=== PATIENT | male | born 1985 | race American Indian/Alaskan Native ===

== ENCOUNTER 2018-05-16 06:56 | Inpatient (IN) | payer OTHER ==
[2018-05-16] MEDS ORDERED: NACL 0.9% 1000 ML 1,000 ML IV ONE ×2 (07:32→07:59)
[2018-05-16] MEDS ORDERED: ATIVAN ONE ×2 (07:38→11:07)
[2018-05-16] MEDS ORDERED: GEODON IM ONE ×2 (07:39→07:52)
[2018-05-16] MEDS ORDERED: WATER FOR INJ (PF) ONE (07:39)
[2018-05-16] MEDS ORDERED: ATIVAN IM STA (07:52)
[2018-05-16 08:36] LABS: Hematocrit 46.2 % (35.5-45.6); Hemoglobin 15.2 gm/dl (11.8-15.2); Mean Corpuscular HGB Conc 33 % (32-34); Mean Corpuscular Hemoglobin 29 pg (28-32); Mean Corpuscular Volume 89 fl (84-94); Platelet Count 232 K/mm3 (140-440); Red Blood Count 5.22 M/mm3 (3.65-5.03); Red Cell Distribution Width 14.2 % (13.2-15.2)
[2018-05-16 08:47] LABS: INR 0.99 (0.87-1.13)
[2018-05-16 08:48] LABS: Partial Thromboplastin Time 23.2 Sec. (24.2-36.6)
[2018-05-16 08:57] LABS: Creatine Kinase MB 15.4 ng/mL (0.0-4.0)
[2018-05-16 08:59] LABS: Alanine Aminotransferase 22 units/L (7-56); Albumin 4.7 g/dL (3.9-5); BUN/Creatinine Ratio 13; Blood Urea Nitrogen 13 mg/dL (9-20); Calcium 9.4 mg/dL (8.4-10.2); Hemolysis Index 10
[2018-05-16] MEDS ORDERED: ROCEPHIN/NS 2 GM/100 ML 2 GM/100 ML BAG IV ONE (09:13)
[2018-05-16] MEDS ORDERED: KETAMINE HCL IV ONE (09:18)
[2018-05-16] MEDS ORDERED: KETALAR IV ONE (09:35)
--- NOTE | 2018-05-16 09:37 | Cat Scan Report ---
CRANIAL CT SCAN: Altered mental status. Serial contiguous axial images were obtained through the cranium. Intravenous contrast material was not administered. The ventricles are normal in size and appearance. There is no mass effect or midline shift. No areas of abnormally increased or decreased attenuation are seen. No mass lesion is seen. The mastoid air cells and visualized portions of the sinuses are normal. IMPRESSION: Cranial CT scan within normal limits.
[2018-05-16] MEDS ORDERED: NORMODYNE IV ONE ×2 (09:40)
[2018-05-16] MEDS ORDERED: VANCOMYCIN PHARMACY TO DOSE IV SCH (10:00)
[2018-05-16] MEDS ORDERED: VANCOMYCIN 2,000 MG in NACL 0.9% 500 ML 500 ML IV NR (10:00)
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
[2018-05-16 10:34] LABS: Appearance,CSF Clear; Glucose,CSF 77 mg/dL; Red Blood Cell,CSF 1 /mm3 (0-0); White Blood Cell,CSF 1 /mm3 (1-10)
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
[2018-05-16] MEDS ORDERED: SODIUM CHLORIDE FLUSH SYRINGE 10 ML IV PRN (10:37)
[2018-05-16] MEDS ORDERED: ZOFRAN IV PRN (10:37)
[2018-05-16] MEDS ORDERED: NACL 0.9% 1000 ML IV ONE (10:37)
[2018-05-16] MEDS ORDERED: TYLENOL PO PRN (10:37)
[2018-05-16 10:40] LABS: Bilirubin,Urine NEG (Negative); Blood,Urine MOD (Negative); Color,Urine Yellow (Yellow); Mucus,Urine FEW /HPF; Urobilinogen,Urine < 2.0 mg/dL (<2.0)
[2018-05-16 10:49] LABS: Basophils % (Manual) 0 % (0.0-1.8); Eosinophils % (Manual) 0 % (0.0-4.3); Platelet Estimate Consistent w Auto; RBC Morphology Normal; Total Cells Counted 100
[2018-05-16 10:51] LABS: Amphetamine Screen,Urine PRESUMPTIVE NEGATIVE; Cannabinoid Screen,Urine PRESUMPTIVE NEGATIVE; Cocaine Screen,Urine PRESUMPTIVE NEGATIVE; Methadone Screen,Urine PRESUMPTIVE NEGATIVE; Opiate Screen,Urine PRESUMPTIVE NEGATIVE
[2018-05-16 11:06] LABS: Benzodiazepines Screen,Urine PRESUMPTIVE POSITIVE
[2018-05-16 11:15] LABS: Total Cells Counted 100 /mm3
[2018-05-16] MEDS: ATIVAN IV PRN ×2 (11:15→22:00)
--- NOTE | 2018-05-16 12:05 | XRay Report ---
PORTABLE CHEST: Hypertension. An AP portable view of the chest demonstrates a normal cardiac contour considering the limits of this technique. The lungs are clear with no evidence of infiltrate, fluid or failure. IMPRESSION: Normal portable chest.
[2018-05-16 12:14] LABS: Alanine Aminotransferase 20 units/L (7-56); Albumin 4.1 g/dL (3.9-5); BUN/Creatinine Ratio 17; Blood Urea Nitrogen 12 mg/dL (9-20); Calcium 8.6 mg/dL (8.4-10.2); Hemolysis Index 8
[2018-05-16] MEDS: ZOSYN/NS 4.5GM/100ML 4.5 GM/100 ML VIAL IV SCH ×2 (13:59→22:18)
[2018-05-16] MEDS: CEPHULAC PO SCH ×2 (14:02→17:21)
[2018-05-16] MEDS: LOVENOX SUB-Q SCH (22:00)
[2018-05-16] MEDS: APRESOLINE IV PRN (22:00)
[2018-05-16] MEDS: SODIUM CHLORIDE FLUSH SYRINGE 10 ML IV SCH (22:01)
[2018-05-16] MEDS: VANCOMYCIN 1,500 MG in NACL 0.9% 500 ML 500 ML IV SCH (22:21)
[2018-05-17] MEDS: CEPHULAC PO SCH ×4 (00:31→18:45)
[2018-05-17] MEDS: ATIVAN IV PRN (03:04)
[2018-05-17 04:36] LABS: Hematocrit 44.4 % (35.5-45.6); Hemoglobin 14.7 gm/dl (11.8-15.2); Mean Corpuscular HGB Conc 33 % (32-34); Mean Corpuscular Hemoglobin 30 pg (28-32); Mean Corpuscular Volume 90 fl (84-94); Platelet Count 201 K/mm3 (140-440); Red Blood Count 4.96 M/mm3 (3.65-5.03); Red Cell Distribution Width 14.2 % (13.2-15.2)
[2018-05-17 04:54] LABS: BUN/Creatinine Ratio 13; Blood Urea Nitrogen 9 mg/dL (9-20); Calcium 8.7 mg/dL (8.4-10.2); Hemolysis Index 11
[2018-05-17] MEDS: ZOSYN/NS 4.5GM/100ML 4.5 GM/100 ML VIAL IV SCH (05:12)
[2018-05-17] MEDS: APRESOLINE IV PRN ×2 (05:18→21:15)
[2018-05-17] MEDS: VANCOMYCIN 1,500 MG in NACL 0.9% 500 ML 500 ML IV SCH (09:09)
[2018-05-17] MEDS: SODIUM CHLORIDE FLUSH SYRINGE 10 ML IV SCH (09:09)
--- NOTE | 2018-05-17 10:26 | Progress Note ---
Assessment and Plan Assessment and plan: Acute Metabolic Encephalopathy-Resolved Hypertensive urgency Meningitis Ruled out Acute Psychosis Morbid obesity Hx of Hazing years ago Hyperammonia SIRS Lactic Acidosis-Resolved Tobacco use disorder Plan Discussed with dental practitioner. Stop Abx, Start clonidin prn Atenolol for BP control Continue hydration Check CK Social Science Manager and Mental health consult Continue abx, IVF Follow cultures Restraints for safety NGT and start on Lactulose CT head reviewed and negative. Plan discussed with patients father at bedside and Social Science Manager. History Interval history: Patient more awake, improving symptoms. family at bedside. BP elevated. Hospitalist Physical - Constitutional Vitals: Temp Pulse Resp BP Pulse Ox 97.2 F L 111 H 34 H 149/89 100 05/17/18 09:00 05/17/18 10:00 05/17/18 10:00 05/17/18 10:00 05/17/18 08:00 General appearance: Present: no acute distress - EENT Eyes: Present: PERRL ENT: hearing intact, clear oral mucosa - Neck Neck: Present: supple, normal ROM - Respiratory Respiratory effort: normal Respiratory: bilateral: CTA - Cardiovascular Rhythm: regular Heart Sounds: Present: S1 & S2. Absent: systolic murmur, diastolic murmur - Extremities Extremities: no ischemia, pulses intact, pulses symmetrical, No edema, normal temperature, normal color, Full ROM Peripheral Pulses: within normal limits - Abdominal General gastrointestinal: soft, non-tender, non-distended, normal bowel sounds - Integumentary Integumentary: Present: clear, warm, dry - Psychiatric Psychiatric: appropriate mood/affect, memory intact - Neurologic Neurologic: CNII-XII intact Results - Labs CBC & Chem 7: 05/17/18 04:17 05/17/18 04:17 Labs: Laboratory Last Values WBC 12.0 K/mm3 (4.5-11.0) H 05/17/18 04:17 RBC 4.96 M/mm3 (3.65-5.03) 05/17/18 04:17 Hgb 14.7 gm/dl (11.8-15.2) 05/17/18 04:17 Hct 44.4 % (35.5-45.6) 05/17/18 04:17 MCV 90 fl (84-94) 05/17/18 04:17 MCH 30 pg (28-32) 05/17/18 04:17 MCHC 33 % (32-34) 05/17/18 04:17 RDW 14.2 % (13.2-15.2) 05/17/18 04:17 Plt Count 201 K/mm3 (140-440) 05/17/18 04:17 Add Manual Diff Complete 05/16/18 08:17 Total Counted 100 05/16/18 08:17 Seg Neuts % (Manual) 88.0 % (40.0-70.0) H 05/16/18 08:17 Band Neutrophils % 0 % 05/16/18 08:17 Lymphocytes % (Manual) 6.0 % (13.4-35.0) L 05/16/18 08:17 Reactive Lymphs % (Man) 0 % 05/16/18 08:17 Monocytes % (Manual) 6.0 % (0.0-7.3) 05/16/18 08:17 Eosinophils % (Manual) 0 % (0.0-4.3) 05/16/18 08:17 Basophils % (Manual) 0 % (0.0-1.8) 05/16/18 08:17 Metamyelocytes % 0 % 05/16/18 08:17 Myelocytes % 0 % 05/16/18 08:17 Promyelocytes % 0 % 05/16/18 08:17 Blast Cells % 0 % 05/16/18 08:17 Nucleated RBC % Not Reportable 05/16/18 08:17 Seg Neutrophils # Man 16.3 K/mm3 (1.8-7.7) H 05/16/18 08:17 Band Neutrophils # 0.0 K/mm3 05/16/18 08:17 Lymphocytes # (Manual) 1.1 K/mm3 (1.2-5.4) L 05/16/18 08:17 Abs React Lymphs (Man) 0.0 K/mm3 05/16/18 08:17 Monocytes # (Manual) 1.1 K/mm3 (0.0-0.8) H 05/16/18 08:17 Eosinophils # (Manual) 0.0 K/mm3 (0.0-0.4) 05/16/18 08:17 Basophils # (Manual) 0.0 K/mm3 (0.0-0.1) 05/16/18 08:17 Metamyelocytes # 0.0 K/mm3 05/16/18 08:17 Myelocytes # 0.0 K/mm3 05/16/18 08:17 Promyelocytes # 0.0 K/mm3 05/16/18 08:17 Blast Cells # 0.0 K/mm3 05/16/18 08:17 WBC Morphology Not Reportable 05/16/18 08:17 Hypersegmented Neuts Not Reportable 05/16/18 08:17 Hyposegmented Neuts Not Reportable 05/16/18 08:17 Hypogranular Neuts Not Reportable 05/16/18 08:17 Smudge Cells Not Reportable 05/16/18 08:17 Toxic Granulation Not Reportable 05/16/18 08:17 Toxic Vacuolation Not Reportable 05/16/18 08:17 Dohle Bodies Not Reportable 05/16/18 08:17 Pelger-Huet Anomaly Not Reportable 05/16/18 08:17 Celio Rods Not Reportable 05/16/18 08:17 Platelet Estimate Consistent w auto 05/16/18 08:17 Clumped Platelets Not Reportable 05/16/18 08:17 Plt Clumps, EDTA Not Reportable 05/16/18 08:17 Large Platelets Not Reportable 05/16/18 08:17 Giant Platelets Not Reportable 05/16/18 08:17 Platelet Satelliting Not Reportable 05/16/18 08:17 Plt Morphology Comment Not Reportable 05/16/18 08:17 RBC Morphology Normal 05/16/18 08:17 Dimorphic RBCs Not Reportable 05/16/18 08:17 Polychromasia Not Reportable 05/16/18 08:17 Hypochromasia Not Reportable 05/16/18 08:17 Poikilocytosis Not Reportable 05/16/18 08:17 Anisocytosis Not Reportable 05/16/18 08:17 Microcytosis Not Reportable 05/16/18 08:17 Macrocytosis Not Reportable 05/16/18 08:17 Spherocytes Not Reportable 05/16/18 08:17 Pappenheimer Bodies Not Reportable 05/16/18 08:17 Sickle Cells Not Reportable 05/16/18 08:17 Target Cells Not Reportable 05/16/18 08:17 Tear Drop Cells Not Reportable 05/16/18 08:17 Ovalocytes Not Reportable 05/16/18 08:17 Helmet Cells Not Reportable 05/16/18 08:17 [place] Bodies Not Reportable 05/16/18 08:17 Ferguson Rings Not Reportable 05/16/18 08:17 Eden Cells Not Reportable 05/16/18 08:17 Bite Cells Not Reportable 05/16/18 08:17 Crenated Cell Not Reportable 05/16/18 08:17 Elliptocytes Not Reportable 05/16/18 08:17 Acanthocytes (Spur) Not Reportable 05/16/18 08:17 Rouleaux Not Reportable 05/16/18 08:17 Hemoglobin C Crystals Not Reportable 05/16/18 08:17 Schistocytes Not Reportable 05/16/18 08:17 Malaria parasites Not Reportable 05/16/18 08:17 Rajat Bodies Not Reportable 05/16/18 08:17 Hem Pathologist Commnt No 05/16/18 08:17 PT 13.6 Sec. (12.2-14.9) 05/16/18 08:17 INR 0.99 (0.87-1.13) 05/16/18 08:17 APTT 23.2 Sec. (24.2-36.6) L 05/16/18 08:17 Sodium 141 mmol/L (137-145) 05/17/18 04:17 Potassium 3.7 mmol/L (3.6-5.0) 05/17/18 04:17 Chloride 102.0 mmol/L (98-107) 05/17/18 04:17 Carbon Dioxide 21 mmol/L (22-30) L 05/17/18 04:17 Anion Gap 22 mmol/L 05/17/18 04:17 BUN 9 mg/dL (9-20) 05/17/18 04:17 Creatinine 0.7 mg/dL (0.8-1.5) L 05/17/18 04:17 Estimated GFR > 60 ml/min 05/17/18 04:17 BUN/Creatinine Ratio 13 % 05/17/18 04:17 Glucose 62 mg/dL (75-100) L 05/17/18 04:17 POC Glucose 90 (70-105) 05/16/18 07:37 Lactic Acid 0.60 mmol/L (0.7-2.0) L 05/16/18 23:00 Calcium 8.7 mg/dL (8.4-10.2) 05/17/18 04:17 Magnesium 2.20 mg/dL (1.7-2.3) 05/16/18 08:17 Total Bilirubin 0.60 mg/dL (0.1-1.2) 05/16/18 11:19 AST 50 units/L (5-40) H 05/16/18 11:19 ALT 20 units/L (7-56) 05/16/18 11:19 Alkaline Phosphatase 69 units/L (35-129) 05/16/18 11:19 Ammonia 96.0 umol/L (25-60) H 05/16/18 08:17 Total Creatine Kinase 3668 units/L (55-170) H 05/17/18 04:17 CK-MB (CK-2) 15.4 ng/mL (0.0-4.0) H 05/16/18 08:17 CK-MB (CK-2) Rel Index 0.9 (0-4) 05/16/18 08:17 Troponin T < 0.010 ng/mL (0.00-0.029) 05/16/18 08:17 NT-Pro-B Natriuret Pep 237.7 pg/mL (0-450) 05/16/18 08:17 Total Protein 6.9 g/dL (6.3-8.2) 05/16/18 11:19 Albumin 4.1 g/dL (3.9-5) 05/16/18 11:19 Albumin/Globulin Ratio 1.5 % 05/16/18 11:19 TSH 2.690 mlU/mL (0.270-4.200) 05/16/18 08:17 Urine Color Yellow (Yellow) 05/16/18 10:21 Urine Turbidity Clear (Clear) 05/16/18 10:21 Urine pH 5.0 (5.0-7.0) 05/16/18 10:21 Ur Specific [place] 1.018 (1.003-1.030) 05/16/18 10:21 Urine Protein 100 mg/dl mg/dL (Negative) 05/16/18 10:21 Urine Glucose (UA) Neg mg/dL (Negative) 05/16/18 10:21 Urine Ketones 20 mg/dL (Negative) 05/16/18 10:21 Urine Blood Mod (Negative) 05/16/18 10:21 Urine Nitrite Neg (Negative) 05/16/18 10:21 Urine Bilirubin Neg (Negative) 05/16/18 10:21 Urine Urobilinogen < 2.0 mg/dL (<2.0) 05/16/18 10:21 Ur Leukocyte Esterase Neg (Negative) 05/16/18 10:21 Urine WBC (Auto) 1.0 /HPF (0.0-6.0) 05/16/18 10:21 Urine RBC (Auto) 2.0 /HPF (0.0-6.0) 05/16/18 10:21 U Epithel Cells (Auto) < 1.0 /HPF (0-13.0) 05/16/18 10:21 Urine Mucus Few /HPF 05/16/18 10:21 CSF Appearance Clear 05/16/18 Unknown CSF Color Colorless 05/16/18 Unknown CSF WBC 1 /mm3 (1-10) 05/16/18 Unknown CSF RBC 1 /mm3 (0-0) 05/16/18 Unknown CSF Seg Neutrophils 3.0 % (0-6) 05/16/18 Unknown CSF Lymphocytes % 18.0 % (40-80) 05/16/18 Unknown CSF Reactive Lymphs Not Reportable 05/16/18 Unknown CSF Monocytes % 79.0 % (15-45) 05/16/18 Unknown CSF Eosinophils % Not Reportable 05/16/18 Unknown CSF Basophils Not Reportable 05/16/18 Unknown CSF Pathologist Review C 05/16/18 Unknown CSF Glucose 77 mg/dL 05/16/18 Unknown CSF Total Protein 34 mg/dL 05/16/18 Unknown Salicylates < 0.3 mg/dL (2.8-20.0) L 05/16/18 08:17 Urine Opiates Screen Presumptive negative 05/16/18 10:21 Urine Methadone Screen Presumptive negative 05/16/18 10:21 Acetaminophen < 5.0 ug/mL (10.0-30.0) L 05/16/18 08:17 Ur Barbiturates Screen Presumptive negative 05/16/18 10:21 Ur Phencyclidine Scrn Presumptive negative 05/16/18 10:21 Ur Amphetamines Screen Presumptive negative 05/16/18 10:21 U Benzodiazepines Scrn Presumptive positive 05/16/18 10:21 Urine Cocaine Screen Presumptive negative 05/16/18 10:21 U Marijuana (THC) Screen Presumptive negative 05/16/18 10:21 Drugs of Abuse Note Disclamer 05/16/18 10:21 Plasma/Serum Alcohol < 0.01 % (0-0.07) 05/16/18 08:17 Blood Type B POSITIVE 05/16/18 11:19 Antibody Screen Negative 05/16/18 11:19
--- NOTE | 2018-05-17 10:56 | Consultation ---
History of Present Illness Consult date: 05/17/18 Requesting physician: WAQAS GARRIDO Reason for consult: other (Hypertensive urgency, acute psychosis, acute encephalopathy) History of present illness: History per ED documentation This is a 32 year old male with a history of a previous sick delirium. 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 Parents report that patient was hospitalized at that time. They are vague as to what the exact cause of the event was. The patient is listed as having a history of a bipolar disorder. However, parents report and no medication has been prescribed for the ensuing 10 years. patient has been able to work. mother states there may have been some odd behavior last night. however father states the patient was able to go to work at [employer] today. he apparently wandered off early in a shift and was found by police. The father was looking for him at that time he presented with him to the emergency department. patient arrived after being administered haldol and versed and benadryl by paramedics. In the emergency department, he was still quite delirious and required Geodon and Ativan. He was not providing any historical information. He would not cooperate with staff. The required physical restraints by security cards. The process was explained to the father who expressed understanding. He had a spinal tap done in the ER, CSF results are not consistent with meningitis. Patient had been started on empiric antibiotics for possible meningitis Patient was admitted into the ICU. Patient was seen and examined this morning. Vitals, labs, medications, chart reviewed. Family was at the bedside. He states that he was fine, but under a lot of pressure to make significant life style changes. He had been smoking and drinking, isolated from people. He spends a lot of time watching TV with late nights after work. He said he does not know what happened but he began to feel closed in, started walking around and became very combative because he felt he was going to suffer punitive measures including incarceration if he let the authorities get to him. 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 He also does state that he has been told he has high blood pressure, but has not been on any medications for it. He had been on medications 10 years ago, but he said the medications gave him terrible night hutson, so he stopped them. He used to drink and smoke. Past History Past Medical History: hypertension, other (bipolar disorder, 10 years ago) Past Surgical History: No surgical history Social history: single, Lives alone, smoking, alcohol abuse, full code Family history: no significant family history Medications and Allergies Allergies Allergy/AdvReac Type Severity Reaction Status Date / Time No Known Allergies Allergy Unverified 05/16/18 07:11 Active Meds: Active Medications Acetaminophen (Tylenol) 650 mg PO Q4H PRN PRN Reason: Pain MILD(1-3)/Fever >100.5/EARL Enoxaparin Sodium (Lovenox) 40 mg SUB-Q QDAY@2200 REPLACED BY [facility] Last Admin: 05/16/18 22:00 Dose: 40 mg Hydralazine HCl (Apresoline) 10 mg IV Q6HR PRN PRN Reason: Hypertension Last Admin: 05/17/18 05:18 Dose: 10 mg Sodium Chloride (Nacl 0.9% 1000 Ml) 1,000 mls @ 250 mls/hr IV DIRECT SHAHRAM Lactulose (Cephulac) 20 gm PO Q6HR SHAHRAM Stop: 05/17/18 23:59 Last Admin: 05/17/18 05:07 Dose: 20 gm Lorazepam (Ativan) 1 mg IV Q4H PRN PRN Reason: Agitation Last Admin: 05/17/18 03:04 Dose: 1 mg Ondansetron HCl (Zofran) 4 mg IV Q8H PRN PRN Reason: Nausea And Vomiting Sodium Chloride (Sodium Chloride Flush Syringe 10 Ml) 10 ml IV BID REPLACED BY [facility] Last Admin: 05/17/18 09:09 Dose: 10 ml Sodium Chloride (Sodium Chloride Flush Syringe 10 Ml) 10 ml IV PRN PRN PRN Reason: LINE FLUSH Review of Systems Constitutional: fatigue, malaise, no weight loss, no weight gain, no fever, no chills, no sweats, no night sweats, no anorexia Ears, nose, mouth and throat: no ear discharge, no decreased hearing, no sinus pressure, no epistaxis, no bleeding gums Cardiovascular: no chest pain, no orthopnea, no rapid/irregular heart beat, no edema, no syncope, no lightheadedness, no shortness of breath Respiratory: no cough, no hemoptysis, no shortness of breath, no wheezing, no pain on inspiration, no respiratory infections Gastrointestinal: no abdominal pain, no nausea, no vomiting, no diarrhea, no constipation, no change in bowel habits Genitourinary Male: no dysuria, no hematuria, no urinary frequency, no urinary hesitancy, no nocturia Musculoskeletal: muscle weakness, no neck stiffness, no neck pain, no shooting arm pain, no shooting leg pain, no muscle cramps, no myalgias Integumentary: no rash, no pruritis, no wounds, no boils, no blisters, no darkening of skin, no color changes Neurological: no transient paralysis, no paralysis, no numbness, no seizures, no syncope, no change in mentation Psychiatric: anxiety, change in sleep habits, hallucinations, anxiety attacks, mood swings, no suicidal ideation Endocrine: no heat intolerance, no polyphagia, no excessive thirst, no polydipsia, no polyuria, no flushing Hematologic/Lymphatic: no easy bruising, no easy bleeding, no lymphadenopathy, no lymphedema Allergic/Immunologic: no urticaria, no allergic rhinitis, no wheezing, no persistent infections, no anaphylaxis Physical Examination Vital signs: Vital Signs Pulse Resp Pulse Ox 87 21 94 05/16/18 07:00 05/16/18 07:00 05/16/18 07:00 Reviewed General appearance: no acute distress Eyes: non-icteric ENT: oropharynx moist Neck: supple, no lymphadenopathy, no JVD Effort: normal Ascultation: Bilateral: clear Cardiovascular: regular rate and rhythm Gastrointestinal: normoactive bowel sounds, soft, non-tender, non-distended Integumentary: normal Extremities: no cyanosis, no edema, pink and warm, pulses normal, no ischemia or petechiae normal mental status, non-focal exam, pupils equal and round, CN II-XII normal, motor strength normal and mood appropriate, anxious Results - Laboratory Findings CBC and BMP: 05/17/18 04:17 05/17/18 04:17 PT/INR, D-dimer PT 13.6 Sec. (12.2-14.9) 05/16/18 08:17 INR 0.99 (0.87-1.13) 05/16/18 08:17 Abnormal lab findings: Abnormal Labs 05/16/18 05/16/18 05/16/18 08:17 08:17 08:17 WBC 18.5 H RBC 5.22 H Hct 46.2 H Seg Neuts % (Manual) 88.0 H Lymphocytes % (Manual) 6.0 L Seg Neutrophils # Man 16.3 H Lymphocytes # (Manual) 1.1 L Monocytes # (Manual) 1.1 H APTT Potassium 3.4 L Chloride 94.3 L Carbon Dioxide 17 L Creatinine Glucose 137 H Lactic Acid 8.60 H* AST 47 H Ammonia Total Creatine Kinase CK-MB (CK-2) Salicylates Acetaminophen 05/16/18 05/16/18 05/16/18 08:17 08:17 08:17 WBC RBC Hct Seg Neuts % (Manual) Lymphocytes % (Manual) Seg Neutrophils # Man Lymphocytes # (Manual) Monocytes # (Manual) APTT 23.2 L Potassium Chloride Carbon Dioxide Creatinine Glucose Lactic Acid AST Ammonia 96.0 H Total Creatine Kinase 1691 H CK-MB (CK-2) 15.4 H Salicylates Acetaminophen 05/16/18 05/16/18 05/16/18 08:17 08:17 11:19 WBC RBC Hct Seg Neuts % (Manual) Lymphocytes % (Manual) Seg Neutrophils # Man Lymphocytes # (Manual) Monocytes # (Manual) APTT Potassium Chloride Carbon Dioxide 21 L Creatinine 0.7 L Glucose Lactic Acid AST 50 H Ammonia Total Creatine Kinase CK-MB (CK-2) Salicylates < 0.3 L Acetaminophen < 5.0 L 05/16/18 05/16/18 05/17/18 13:37 23:00 04:17 WBC 12.0 H RBC Hct Seg Neuts % (Manual) Lymphocytes % (Manual) Seg Neutrophils # Man Lymphocytes # (Manual) Monocytes # (Manual) APTT Potassium Chloride Carbon Dioxide Creatinine Glucose Lactic Acid 0.60 L AST Ammonia Total Creatine Kinase 2794 H CK-MB (CK-2) Salicylates Acetaminophen 05/17/18 04:17 WBC RBC Hct Seg Neuts % (Manual) Lymphocytes % (Manual) Seg Neutrophils # Man Lymphocytes # (Manual) Monocytes # (Manual) APTT Potassium Chloride Carbon Dioxide 21 L Creatinine 0.7 L Glucose 62 L Lactic Acid AST Ammonia Total Creatine Kinase 3668 H CK-MB (CK-2) Salicylates Acetaminophen - Diagnostic Findings Chest x-ray: report reviewed, image reviewed (Low lung volumes) Additional studies: [facility] [address] [place] [address] XRay Report Signed Patient: JOSE MORENO JR MR#: [id number] : 1985 Acct:[id number] Age/Sex: 32 / M ADM Date: 05/16/18 Loc: CC1 [id number]: WAQAS GARRIDO MD Ordering Physician: CAIN FERNANDEZ MD Date of Service: 05/16/18 Procedure(s): XR chest 1V ap Accession Number(s): [id number] cc: CAIN FERNANDEZ MD Fluoro Time In Minutes: PORTABLE CHEST: Hypertension. An AP portable view of the chest demonstrates a normal cardiac contour considering the limits of this technique. The lungs are clear with no evidence of infiltrate, fluid or failure. IMPRESSION: Normal portable chest. Transcribed By: Wilma Dictated By: KOBY CARPIO MD Electronically Authenticated By: KOBY CARPIO MD Signed Date/Time: 05/16/18 1142 Assessment and Plan -Hypertensive urgency -Acute encephalopathy -Acute psychosis -Leukocytosis, LP negative -Polysubstance abuse disorder -Obesity -Low lung volumes -h/o Bipolar disorder -Blood pressure control -CTscan of the brain was negative. -Recommend MRI of the brain without and with contrast to r/o PRES -Psychiatry evaluation -Incentive spirometry and deep breathing exercises -Life style modification and weight loss -Nicotine withdrawal precautions -Alcohol withdrawal precautions -CIWA protocol -VTE prophyalxis -Neurology consult if indicated based on MRI results -Discontinue antibiotics and monitor off antibiotics -Follow CBC trend Discussed with hospitalist service. Patient can be transferred to telemetry floor.
[2018-05-17] MEDS: TENORMIN PO SCH (12:08)
[2018-05-17] MEDS: LOVENOX SUB-Q SCH (21:14)
[2018-05-18] MEDS: CATAPRES PO PRN ×3 (00:13→22:22)
[2018-05-18] MEDS: SODIUM CHLORIDE FLUSH SYRINGE 10 ML IV SCH ×3 (00:16→22:23)
[2018-05-18 05:25] LABS: Hematocrit 44.2 % (35.5-45.6); Mean Corpuscular HGB Conc 34 % (32-34); Mean Corpuscular Hemoglobin 30 pg (28-32); Mean Corpuscular Volume 88 fl (84-94); Platelet Count 224 K/mm3 (140-440); Red Blood Count 5.02 M/mm3 (3.65-5.03); Red Cell Distribution Width 14.3 % (13.2-15.2)
[2018-05-18 05:37] LABS: BUN/Creatinine Ratio 10; Blood Urea Nitrogen 6 mg/dL (9-20); Calcium 8.9 mg/dL (8.4-10.2); Hemolysis Index 6
[2018-05-18] MEDS: APRESOLINE IV PRN ×2 (06:16→22:22)
[2018-05-18] MEDS: ATIVAN IV PRN ×2 (06:17→12:15)
[2018-05-18] MEDS: TENORMIN PO SCH (09:30)
--- NOTE | 2018-05-18 12:28 | Progress Note ---
Assessment and Plan Acute Metabolic Encephalopathy-Resolved Hypertensive urgency Meningitis Ruled out Acute Psychosis Rhabdomyolysis Morbid obesity Hx of Hazing years ago Hyperammonia SIRS Lactic Acidosis-Resolved Tobacco use disorder Plan Start clonidin prn Atenolol for BP control Continue hydration Daily CK check Tooth Polisher and Mental health consult Continue abx, IVF Follow cultures Restraints for safety NGT and start on Lactulose CT head reviewed and negative. MRI of the brain was negative Plan discussed with patients father at bedside. Subjective Date of service: 05/18/18 Principal diagnosis: metabolic encephalopathy, hypertensive urgency, acute psychosis, SIRS Interval history: Patient seen and examined. Still confused but less so. No overnight event reported by nursing staff. Reviewed laboratory and radiological data Objective - Exam Narrative Exam: Constitutional: Well-nourished well-developed. In no distress Head: Normocephalic atraumatic Eyes: Pupils are equal round and reactive to light Nose: No enlarged turbinates, no septal deviation. Mouth: Moist mucous membranes. Neck: Supple no thyromegaly. No bruit. No JVD Heart: Regular rate and rhythm, S1-S2 abnormal. No rubs murmurs or gallop Lungs: Clear to auscultation bilaterally no rales or rhonchi Abdomen: Soft, nontender. Bowel sound are present. Extremities: No edema no cyanosis and no clubbing. Neuro: Alert oriented Oriented x1. No focal sensory or motor deficit. Skin: No rashes no hyperemic spots Psychiatry: Euthymic. Calm. - Constitutional Vitals: Vital Signs - 12hr 05/18/18 05/18/18 05/18/18 03:59 07:20 12:17 Temperature 98.2 F 98.3 F 98.4 F Pulse Rate 83 95 H 82 Respiratory 17 18 Rate Blood Pressure 179/119 154/93 Blood Pressure 137/88 [Right] O2 Sat by Pulse 96 97 Oximetry - Labs CBC & Chem 7: 05/18/18 03:57 05/18/18 03:57 Labs: Abnormal lab results 05/18/18 Range/Units 03:57 BUN 6 L (9-20) mg/dL Creatinine 0.6 L (0.8-1.5) mg/dL Total Creatine Kinase 2654 H (55-170) units/L
--- NOTE | 2018-05-18 13:28 | Magnetic Resonance Report ---
FINAL REPORT EXAM: MR BRAIN WO/W CON HISTORY: AMS TECHNIQUE: Multiplanar multisequence pre and post gadolinium MR images of the brain were performed. 15 mL MultiHance was utilized for contrast enhancement. Comparison: None FINDINGS: Fully formed corpus callosum. Unremarkable sella turcica, colliculus, brainstem, and posterior fossa. No focal acute restricted diffusion. Normal cancino-white differentiation. No midline shift or mass effect. No intraparenchymal blood products or extra-axial fluid collections. Mild bilateral maxillary sinus mucosal thickening. The still a cochlear nerve sheath bundles, cerebellopontine angles are within normal limits. There are normal intracranial T2 flow voids. Optic chiasm is midline. Infundibulum is unremarkable. Mildly dysconjugate gaze. Orbital cones and apices are otherwise unremarkable. Mild ethmoid air cell mucosal thickening. The brainstem is unremarkable. Nasopharynx is within normal limits. No abnormal FLAIR signal intensity lesions. No abnormal postcontrast enhancement. Dural venous sinuses are not well assessed on this arterial phase exam. No abnormal enhancement identified. IMPRESSION: No focal acute restricted diffusion to suggest infarct. Dysconjugate gaze, etiology uncertain. Mild ethmoid and maxillary sinus disease. Otherwise, unremarkable exam including no mass lesion or blood products. Normal intracranial T2 flow voids. No abnormal enhancement.
--- NOTE | 2018-05-18 21:07 | Progress Note ---
Assessment and Plan Patient alert, awake. Resting on room air.O2 saturation 96% on room air.No complaint of chest pain,shortness of breath or cough at this time. - Patient Problems (1) Altered mental status Current Visit: Yes Status: Acute Qualifiers: Altered mental status type: transient alteration of awareness Qualified Code(s): R40.4 - Transient alteration of awareness Plan to address problem: Patient alert, awake oriented at this time. (2) Delirium Current Visit: Yes Status: Acute Plan to address problem: Improved. (3) Rhabdomyolysis Current Visit: Yes Status: Acute Qualifiers: Rhabdomyolysis type: non-traumatic Qualified Code(s): M62.82 - Rhabdomyolysis Plan to address problem: Total CPK still high. But it is coming down. (4) Tobacco use Current Visit: Yes Status: Acute Plan to address problem: Counselled to stop smoking. Subjective Date of service: 05/18/18 Principal diagnosis: metabolic encephalopathy, hypertensive urgency, acute psychosis, SIRS Interval history: Patient alert, awake. Resting on room air.O2 saturation 96% on room air.No complaint of chest pain,shortness of breath or cough at this time. Objective Vital Signs - 12hr 05/18/18 05/18/18 05/18/18 10:00 12:17 16:56 Temperature 98.4 F 98.3 F Pulse Rate 82 79 Pulse Rate [ 103 H From Monitor] Respiratory 18 Rate Blood Pressure Blood Pressure 137/88 168/109 [Right] O2 Sat by Pulse 97 Oximetry 05/18/18 05/18/18 19:15 19:16 Temperature 97.8 F Pulse Rate 74 75 Pulse Rate [ From Monitor] Respiratory 18 Rate Blood Pressure 173/113 160/113 Blood Pressure [Right] O2 Sat by Pulse 97 96 Oximetry Constitutional: no acute distress, alert Eyes: non-icteric ENT: oropharynx moist Neck: supple, no lymphadenopathy, no JVD Effort: normal Ascultation: Bilateral: clear Cardiovascular: regular rate and rhythm Gastrointestinal: normoactive bowel sounds, soft, non-tender, non-distended Integumentary: normal Extremities: no cyanosis, no edema, pink and warm, pulses normal, no ischemia or petechiae Neurologic: normal mental status, non-focal exam, pupils equal and round, CN II- XII normal, motor strength normal and Psychiatric: mood appropriate, anxious CBC and BMP: 05/18/18 03:57 05/18/18 03:57 ABG, PT/INR, D-dimer: PT/INR, D-dimer PT 13.6 Sec. (12.2-14.9) 05/16/18 08:17 INR 0.99 (0.87-1.13) 05/16/18 08:17 Abnormal lab findings: Abnormal Labs 05/16/18 05/16/18 05/16/18 08:17 08:17 08:17 WBC 18.5 H RBC 5.22 H Hct 46.2 H Seg Neuts % (Manual) 88.0 H Lymphocytes % (Manual) 6.0 L Seg Neutrophils # Man 16.3 H Lymphocytes # (Manual) 1.1 L Monocytes # (Manual) 1.1 H APTT Potassium 3.4 L Chloride 94.3 L Carbon Dioxide 17 L BUN Creatinine Glucose 137 H Lactic Acid 8.60 H* AST 47 H Ammonia Total Creatine Kinase CK-MB (CK-2) Salicylates Acetaminophen 05/16/18 05/16/18 05/16/18 08:17 08:17 08:17 WBC RBC Hct Seg Neuts % (Manual) Lymphocytes % (Manual) Seg Neutrophils # Man Lymphocytes # (Manual) Monocytes # (Manual) APTT 23.2 L Potassium Chloride Carbon Dioxide BUN Creatinine Glucose Lactic Acid AST Ammonia 96.0 H Total Creatine Kinase 1691 H CK-MB (CK-2) 15.4 H Salicylates Acetaminophen 05/16/18 05/16/18 05/16/18 08:17 08:17 11:19 WBC RBC Hct Seg Neuts % (Manual) Lymphocytes % (Manual) Seg Neutrophils # Man Lymphocytes # (Manual) Monocytes # (Manual) APTT Potassium Chloride Carbon Dioxide 21 L BUN Creatinine 0.7 L Glucose Lactic Acid AST 50 H Ammonia Total Creatine Kinase CK-MB (CK-2) Salicylates < 0.3 L Acetaminophen < 5.0 L 05/16/18 05/16/18 05/17/18 13:37 23:00 04:17 WBC 12.0 H RBC Hct Seg Neuts % (Manual) Lymphocytes % (Manual) Seg Neutrophils # Man Lymphocytes # (Manual) Monocytes # (Manual) APTT Potassium Chloride Carbon Dioxide BUN Creatinine Glucose Lactic Acid 0.60 L AST Ammonia Total Creatine Kinase 2794 H CK-MB (CK-2) Salicylates Acetaminophen 05/17/18 05/18/18 04:17 03:57 WBC RBC Hct Seg Neuts % (Manual) Lymphocytes % (Manual) Seg Neutrophils # Man Lymphocytes # (Manual) Monocytes # (Manual) APTT Potassium Chloride Carbon Dioxide 21 L BUN 6 L Creatinine 0.7 L 0.6 L Glucose 62 L Lactic Acid AST Ammonia Total Creatine Kinase 3668 H 2654 H CK-MB (CK-2) Salicylates Acetaminophen Chest x-ray: report reviewed (Reported normal portable chest.), image reviewed
[2018-05-18] MEDS: LOVENOX SUB-Q SCH (22:23)
[2018-05-19] MEDS: ATIVAN IV PRN ×3 (02:33→21:30)
[2018-05-19] MEDS: APRESOLINE IV PRN ×2 (07:02→16:24)
[2018-05-19] MEDS: TENORMIN PO SCH (09:27)
[2018-05-19] MEDS: SODIUM CHLORIDE FLUSH SYRINGE 10 ML IV SCH (09:30)
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
--- NOTE | 2018-05-19 13:07 | Progress Note ---
Assessment and Plan Hypertensive urgency Rhabdomyolysis Acute encephalopathy Acute psychosis Leukocytosis, LP negative Polysubstance abuse disorder Obesity Low lung volumes h/o Bipolar disorder - continue blood pressure control with clonidine and atenolol - MRI of the brain negative - Continue psychiatry evaluation - continue incentive spirometry and deep breathing exercises - Life style modification and weight loss counselled prior - continue nicotine withdrawal precautions - Alcohol withdrawal precautions - continue CIWA protocol - continue VTE prophyalxis - add GI prophylaxis - Neurology consult if indicated based on MRI results - Discontinued antibiotics and monitor off antibiotics - Follow cpK trend - continue psychoactive meds ... re-evaluate in am & prn .. 35' Subjective Date of service: 05/19/18 Principal diagnosis: Acute Metabolic Encephalopathy; hypertensive urgency; SIRS Interval history: Patient is seen today for: Acute Metabolic Encephalopathy; hypertensive urgency ; SIRS Seen and examined at bedside; 24hour events reviewed; nursing and respiratory care staff consulted; no adverse overnight events reported to me; resting in bed ; BP's better; still with 1on1 sitter re: ? psychosis; psych evaluation ongoing ; parents in room; denies acute chest pains or increased SOB Objective Vital Signs - 12hr 05/19/18 05/19/18 05/19/18 04:06 04:07 08:08 Temperature 97.6 F 97.5 F L Pulse Rate 75 83 Pulse Rate [ From Monitor] Respiratory 18 17 Rate Blood Pressure 165/112 153/113 Blood Pressure 159/102 [Right] O2 Sat by Pulse 96 95 Oximetry 05/19/18 05/19/18 09:27 09:45 Temperature Pulse Rate 90 Pulse Rate [ 90 From Monitor] Respiratory 20 Rate Blood Pressure 159/102 Blood Pressure [Right] O2 Sat by Pulse 98 Oximetry Constitutional: no acute distress, alert, other (young AAM resting in bed; normocephalic and atraumatic with normal respiratory effort) Eyes: non-icteric ENT: oropharynx moist, other (mallampati 2) Neck: supple, no lymphadenopathy, no JVD Effort: normal Ascultation: Bilateral: rhonchi Percussion: Bilateral: not dull Cardiovascular: regular rate and rhythm, other (No R/M) Gastrointestinal: normoactive bowel sounds, soft, non-tender, non-distended, other (no palpable HSM) Integumentary: normal Extremities: no cyanosis, no edema, pink and warm, pulses normal, no ischemia or petechiae Neurologic: normal mental status, non-focal exam, pupils equal and round, CN II- XII normal, motor strength normal and Psychiatric: anxious, other (pressured speech; fidgety) CBC and BMP: 05/18/18 03:57 05/21/18 06:42 ABG, PT/INR, D-dimer: PT/INR, D-dimer PT 13.6 Sec. (12.2-14.9) 05/16/18 08:17 INR 0.99 (0.87-1.13) 05/16/18 08:17 Abnormal lab findings: Abnormal Labs 05/16/18 05/16/18 05/16/18 08:17 08:17 08:17 WBC 18.5 H RBC 5.22 H Hct 46.2 H Seg Neuts % (Manual) 88.0 H Lymphocytes % (Manual) 6.0 L Seg Neutrophils # Man 16.3 H Lymphocytes # (Manual) 1.1 L Monocytes # (Manual) 1.1 H APTT Potassium 3.4 L Chloride 94.3 L Carbon Dioxide 17 L BUN Creatinine Glucose 137 H Lactic Acid 8.60 H* AST 47 H Ammonia Total Creatine Kinase CK-MB (CK-2) Salicylates Acetaminophen 05/16/18 05/16/18 05/16/18 08:17 08:17 08:17 WBC RBC Hct Seg Neuts % (Manual) Lymphocytes % (Manual) Seg Neutrophils # Man Lymphocytes # (Manual) Monocytes # (Manual) APTT 23.2 L Potassium Chloride Carbon Dioxide BUN Creatinine Glucose Lactic Acid AST Ammonia 96.0 H Total Creatine Kinase 1691 H CK-MB (CK-2) 15.4 H Salicylates Acetaminophen 05/16/18 05/16/18 05/16/18 08:17 08:17 11:19 WBC RBC Hct Seg Neuts % (Manual) Lymphocytes % (Manual) Seg Neutrophils # Man Lymphocytes # (Manual) Monocytes # (Manual) APTT Potassium Chloride Carbon Dioxide 21 L BUN Creatinine 0.7 L Glucose Lactic Acid AST 50 H Ammonia Total Creatine Kinase CK-MB (CK-2) Salicylates < 0.3 L Acetaminophen < 5.0 L 05/16/18 05/16/18 05/17/18 13:37 23:00 04:17 WBC 12.0 H RBC Hct Seg Neuts % (Manual) Lymphocytes % (Manual) Seg Neutrophils # Man Lymphocytes # (Manual) Monocytes # (Manual) APTT Potassium Chloride Carbon Dioxide BUN Creatinine Glucose Lactic Acid 0.60 L AST Ammonia Total Creatine Kinase 2794 H CK-MB (CK-2) Salicylates Acetaminophen 05/17/18 05/18/18 04:17 03:57 WBC RBC Hct Seg Neuts % (Manual) Lymphocytes % (Manual) Seg Neutrophils # Man Lymphocytes # (Manual) Monocytes # (Manual) APTT Potassium Chloride Carbon Dioxide 21 L BUN 6 L Creatinine 0.7 L 0.6 L Glucose 62 L Lactic Acid AST Ammonia Total Creatine Kinase 3668 H 2654 H CK-MB (CK-2) Salicylates Acetaminophen Chest x-ray: image reviewed Allied health notes reviewed: nursing
--- NOTE | 2018-05-19 13:23 | Consultation ---
History of Present Illness - Reason for Consult Consult date: 05/19/18 Reason for consult: Mental Health Evaluation Requesting physician: WAQAS GARRIDO - Chief Complaint Chief complaint: "I need to stop drinking" - History of Present Psychiatric Illness 32 y.o. AA male presenting to the ER for AMS. Psychiatry was consulted to see patient. Today the patient is calm and cooperative during the assessment. He stated that he does not know what happened prior to his admission to the hospital. He stated that this admission has been "scary for him." He stated that he was admitted to a mental health facility in 2008 after being taking to the ER for possible anxiety. 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 His story was confirmed by both his parents. His parents feels that their son does not have Bipolar DO. They stated that their son was acting like a "zombie" when he was on psy medications in the mental health facility in 2008. They stated that he followed up with an psychiatrist once discharged and that was a "horrible experience" for their son, the patient agreed. He has not had a episode since. The patient did state having a "drinking problem" since college, which he was charged with a DUI in 2013. He stated that his alcohol consumption (etoh) over the past year has increased. He stated that he would like to talk with a therapist, because he have a lot of things he want to discuss. He denies being depressed or experiencing any manic episodes. He acknowledged having problem starting and staying sleep. He denies SI/HI's and AVH's. Medications and Allergies Allergies Allergy/AdvReac Type Severity Reaction Status Date / Time No Known Allergies Allergy Unverified 05/16/18 07:11 Home Medications Medication Instructions Recorded Confirmed Last Taken Type RX: No Known Home Medications [No 05/19/18 05/19/18 Unknown History Reported Home Medications] Active Meds: Active Medications Acetaminophen (Tylenol) 650 mg PO Q4H PRN PRN Reason: Pain MILD(1-3)/Fever >100.5/EARL Last Admin: 05/19/18 02:33 Dose: 650 mg Atenolol (Tenormin) 50 mg PO QDAY SHAHRAM Last Admin: 05/19/18 09:27 Dose: 50 mg Clonidine HCl (Catapres) 0.1 mg PO Q4H PRN PRN Reason: Anxiety Last Admin: 05/18/18 22:22 Dose: 0.1 mg Enoxaparin Sodium (Lovenox) 40 mg SUB-Q QDAY@2200 SHAHRAM Last Admin: 05/18/18 22:23 Dose: 40 mg Hydralazine HCl (Apresoline) 10 mg IV Q6HR PRN PRN Reason: Hypertension Last Admin: 05/19/18 07:02 Dose: 10 mg Sodium Chloride (Nacl 0.9% 1000 Ml) 1,000 mls @ 250 mls/hr IV DIRECT SHAHRAM Lorazepam (Ativan) 1 mg IV Q4H PRN PRN Reason: Agitation Last Admin: 05/19/18 02:33 Dose: 1 mg Ondansetron HCl (Zofran) 4 mg IV Q8H PRN PRN Reason: Nausea And Vomiting Sodium Chloride (Sodium Chloride Flush Syringe 10 Ml) 10 ml IV BID SHAHRAM Last Admin: 05/19/18 09:30 Dose: 10 ml Sodium Chloride (Sodium Chloride Flush Syringe 10 Ml) 10 ml IV PRN PRN PRN Reason: LINE FLUSH Past psychiatric history - Past Medical History Past Medical History: No medical history Past Surgical History: No surgical history - past Psychiatric treatment and history psychiatric treatment history: Been to a mental health facility in 2008. Denies a fam psy hx. - Social History Social history: Lives alone Mental Status Exam - Vital signs Last Vital Signs Temp 97.5 F L 05/19/18 08:08 Pulse 90 05/19/18 09:45 Resp 20 05/19/18 09:45 BP 159/102 05/19/18 09:27 Pulse Ox 98 05/19/18 09:45 - Exam Narrative exam: MSE: Appearance: calm, cooperative Behavior: regular eye contact Speech: regular rate and tone Mood: "okay" Affect: congruent to mood Thought Process: linear Thought Content: denies SI/HI's and AVH's Motor Activity: ambulatory Cognition: A/O x 3 Insight: fair Judgment: fair Results Result Diagrams: 05/18/18 03:57 05/18/18 03:57 All other labs normal. Assessment and Plan Assessment and plan: Impression: R/O Alcohol Use DO. Insomnia. Today the patient is calm and cooperative during the assessment. Lactic Acid, AST, CK, and Ammonia level elevated on admission. Delirium has resolved. DDx: R/O Mood DO Medical: Acute Metabolic Encephalopathy on admission Recommendation/Plan: Start Benadryl 25 mg PO HS PRN for sleep. The patient can follow up with [facility] or [facility] for outpatient psy/rehab services. Discussed proper sleep hygiene with patient.
[2018-05-19] MEDS ORDERED: BANOPHEN PO PRN (13:51)
[2018-05-19] MEDS: CATAPRES PO PRN (16:24)
[2018-05-19] MEDS ORDERED: HALDOL ONE (21:36)
[2018-05-19] MEDS ORDERED: HALDOL IM ONE (21:40)
[2018-05-19] MEDS ORDERED: GEODON IM ONE (21:50)
[2018-05-19] MEDS ORDERED: BENADRYL ONE (21:56)
[2018-05-19] MEDS ORDERED: WATER FOR INJ (PF) IV ONE (22:00)
[2018-05-19] MEDS ORDERED: BENADRYL IV ONE ×2 (22:03→22:30)
[2018-05-19] MEDS ORDERED: ATIVAN IV ONE ×2 (22:04→22:31)
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
[2018-05-20] MEDS: SODIUM CHLORIDE FLUSH SYRINGE 10 ML IV SCH ×3 (02:05→23:13)
[2018-05-20] MEDS: LOVENOX SUB-Q SCH ×2 (02:05→23:12)
[2018-05-20] MEDS: TENORMIN PO SCH (10:40)
--- NOTE | 2018-05-20 12:49 | Progress Note ---
Assessment and Plan Hypertensive urgency Rhabdomyolysis Acute encephalopathy Acute psychosis Leukocytosis, LP negative Polysubstance abuse disorder Obesity Low lung volumes h/o Bipolar disorder - continue blood pressure control with clonidine and atenolol - MRI of the brain negative - Continue psychiatry evaluation - continue incentive spirometry and deep breathing exercises - Life style modification and weight loss counselled prior - continue nicotine withdrawal precautions - Alcohol withdrawal precautions - continue CIWA protocol - continue VTE prophyalxis - add GI prophylaxis - Neurology consult if indicated based on MRI results - Discontinued antibiotics and monitor off antibiotics - Follow cpK trend - continue psychoactive meds (seroquel added) ... re-evaluate in am & prn .. 35' Subjective Date of service: 05/20/18 Principal diagnosis: metabolic encephalopathy, hypertensive urgency, acute psychosis, SIRS Interval history: Patient is seen today for: Acute Metabolic Encephalopathy; hypertensive urgency ; SIRS Seen and examined at bedside; 24hour events reviewed; nursing and respiratory care staff consulted; no adverse overnight events reported to me; resting in bed ; BP's better; still with 1on1 sitter; psych evaluation ongoing; parents in room ; denies acute chest pains or increased SOB; no seizures; still with pressured speech; No N/V/F/C Objective Vital Signs - 12hr 05/20/18 05/20/18 08:55 08:59 Temperature 98.7 F 98.3 F Pulse Rate 86 90 Respiratory 18 20 Rate Blood Pressure 155/104 Blood Pressure 130/79 [Right] O2 Sat by Pulse 96 100 Oximetry Constitutional: no acute distress, alert, other (young AAM normocephalic and atraumatic with mildly increased respiratory effort) Eyes: non-icteric ENT: oropharynx moist, other (mallampatti 2) Neck: supple, no lymphadenopathy, no JVD Effort: normal Ascultation: Bilateral: clear Percussion: Bilateral: not dull Cardiovascular: regular rate and rhythm, other (No R/M) Gastrointestinal: normoactive bowel sounds, soft, non-tender, non-distended, other (No HSM) Integumentary: normal Extremities: no cyanosis, no edema, pink and warm, pulses normal, no ischemia or petechiae Neurologic: normal mental status, non-focal exam, pupils equal and round, CN II- XII normal, motor strength normal and Psychiatric: anxious, other (pressured; tangential thoughts) CBC and BMP: 05/18/18 03:57 05/21/18 06:42 ABG, PT/INR, D-dimer: PT/INR, D-dimer PT 13.6 Sec. (12.2-14.9) 05/16/18 08:17 INR 0.99 (0.87-1.13) 05/16/18 08:17 Abnormal lab findings: Abnormal Labs 05/16/18 05/16/18 05/16/18 08:17 08:17 08:17 WBC 18.5 H RBC 5.22 H Hct 46.2 H Seg Neuts % (Manual) 88.0 H Lymphocytes % (Manual) 6.0 L Seg Neutrophils # Man 16.3 H Lymphocytes # (Manual) 1.1 L Monocytes # (Manual) 1.1 H APTT Potassium 3.4 L Chloride 94.3 L Carbon Dioxide 17 L BUN Creatinine Glucose 137 H Lactic Acid 8.60 H* AST 47 H Ammonia Total Creatine Kinase CK-MB (CK-2) Salicylates Acetaminophen 05/16/18 05/16/18 05/16/18 08:17 08:17 08:17 WBC RBC Hct Seg Neuts % (Manual) Lymphocytes % (Manual) Seg Neutrophils # Man Lymphocytes # (Manual) Monocytes # (Manual) APTT 23.2 L Potassium Chloride Carbon Dioxide BUN Creatinine Glucose Lactic Acid AST Ammonia 96.0 H Total Creatine Kinase 1691 H CK-MB (CK-2) 15.4 H Salicylates Acetaminophen 05/16/18 05/16/18 05/16/18 08:17 08:17 11:19 WBC RBC Hct Seg Neuts % (Manual) Lymphocytes % (Manual) Seg Neutrophils # Man Lymphocytes # (Manual) Monocytes # (Manual) APTT Potassium Chloride Carbon Dioxide 21 L BUN Creatinine 0.7 L Glucose Lactic Acid AST 50 H Ammonia Total Creatine Kinase CK-MB (CK-2) Salicylates < 0.3 L Acetaminophen < 5.0 L 05/16/18 05/16/18 05/17/18 13:37 23:00 04:17 WBC 12.0 H RBC Hct Seg Neuts % (Manual) Lymphocytes % (Manual) Seg Neutrophils # Man Lymphocytes # (Manual) Monocytes # (Manual) APTT Potassium Chloride Carbon Dioxide BUN Creatinine Glucose Lactic Acid 0.60 L AST Ammonia Total Creatine Kinase 2794 H CK-MB (CK-2) Salicylates Acetaminophen 05/17/18 05/18/18 05/19/18 04:17 03:57 13:34 WBC RBC Hct Seg Neuts % (Manual) Lymphocytes % (Manual) Seg Neutrophils # Man Lymphocytes # (Manual) Monocytes # (Manual) APTT Potassium Chloride Carbon Dioxide 21 L BUN 6 L Creatinine 0.7 L 0.6 L Glucose 62 L Lactic Acid AST Ammonia Total Creatine Kinase 3668 H 2654 H 1108 H CK-MB (CK-2) Salicylates Acetaminophen Chest x-ray: image reviewed (hypoventilation) Allied health notes reviewed: nursing
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
--- NOTE | 2018-05-20 15:59 | Progress Note ---
Subjective - Reason for Consult Consult date: 05/20/18 Reason for consult: Psychiatry Follow-up - Chief Complaint Chief complaint: "Something happened last night" 32 y.o. AA male presenting to the ER for AMS. Psychiatry was consulted to see patient. Today the patient is calm during the assessment. Per collateral information from his parents, staff, and the notes, the patient experienced a psychotic episode overnight. Per collateral information, the patient was pacing , experiencing perceptional disturbances, and security was called to help deescalate the situation. The patient had to be given PRN medication for acute agitation. The patient could not explain his behavior when asked. He did state that he felt like "something or someone" maybe after him. He denies SI/HI's and AVH's. He was informed along with his parents in detail the treatment plan that includes inpatient psy services once medically clear. He stated that he is willing to take medication (Seroquel/Cogentin). The patient's father stated that his son didn't get much sleep prior to his psychotic episode. The patient stated that he had a reaction to Haldol in the past (dystonia) that was confirmed by his parents. Mental Status Exam - Vital signs Last Vital Signs Temp 98.7 F 05/20/18 12:53 Pulse 77 05/20/18 12:53 Resp 18 05/20/18 12:53 BP 174/116 05/20/18 12:53 Pulse Ox 97 05/20/18 12:53 - Exam Narrative exam: MSE: Appearance: calm Behavior: regular eye contact Speech: regular rate and tone Mood: apprehensive Affect: congruent to mood Thought Process: disorganized Thought Content: denies SI/HI's and AVH's, paranoid, delusional Motor Activity: ambulatory Cognition: A/O x 3 Insight: poor Judgment: poor Assessment and Plan Impression: Unspecified Psychosis. R/O Alcohol Use DO. Insomnia. Today the patient is calm and cooperative during the assessment. CK is elevated. DDx: Bipolar DO, R/O Schizophrenia Medical: Acute Metabolic Encephalopathy on admission Recommendation/Plan: Continue 1013 with pending placement to [facility] once medically clear. Start Seroquel 200 mg PO HS for psychosis, Cogentin 0.5 mg PO HS for EPS prevention, and Thorazine 25 mg IM Q8hrs PRN for acute agitation. Discussed possible metabolic side effects of Seroquel with patient and his parents. The patient's parents is aware that their son will be transferred to a mental health facility once medically clear.
[2018-05-20] MEDS ORDERED: HALDOL IM PRN (16:04)
[2018-05-20] MEDS ORDERED: HALDOL IM ONE (17:05)
[2018-05-20] MEDS: THORAZINE IM PRN (18:39)
[2018-05-20] MEDS ORDERED: BENADRYL PO PRN (22:00)
[2018-05-20] MEDS: COGENTIN PO SCH (23:11)
[2018-05-21] MEDS: THORAZINE IM PRN (04:19)
[2018-05-21] MEDS: ATIVAN IV PRN ×4 (05:12→19:48)
[2018-05-21] MEDS: NACL 0.9% 1000 ML 1,000 ML IV SCH ×4 (05:12→21:10)
[2018-05-21 08:09] LABS: BUN/Creatinine Ratio 12; Blood Urea Nitrogen 12 mg/dL (9-20); Calcium 8.9 mg/dL (8.4-10.2); Hemolysis Index 21
[2018-05-21] MEDS: TENORMIN PO SCH (08:12)
--- NOTE | 2018-05-21 12:34 | Progress Note ---
Assessment and Plan Hypertensive urgency Rhabdomyolysis Acute encephalopathy Acute psychosis Leukocytosis, LP negative Polysubstance abuse disorder Obesity Low lung volumes h/o Bipolar disorder - continue blood pressure control with clonidine and atenolol (much improved) - MRI of the brain negative - SIRS improved - Continue psychiatry evaluation - S/P lumbar puncture and negative (toxic metabolic component of encephalopathy resolving) - continue incentive spirometry and deep breathing exercises - Life style modification and weight loss counselled prior - continue nicotine withdrawal precautions - continue lcohol withdrawal precautions - continue CIWA protocol - continue VTE prophyalxis - added GI prophylaxis - Neurology consult if indicated based on MRI results - Discontinued antibiotics and monitor off antibiotics - Follow cpK trend - lactic acidosis resolved - continue psychoactive meds (seroquel added) - remains a 1013 status ... re-evaluate in am & prn .. 35' Subjective Date of service: 05/21/18 Principal diagnosis: metabolic encephalopathy, hypertensive urgency, acute psychosis, SIRS Interval history: Patient is seen today for: Acute Metabolic Encephalopathy; hypertensive urgency ; SIRS Seen and examined at bedside; 24hour events reviewed; nursing and respiratory care staff consulted; no adverse overnight events reported to me; resting in bed ; BP's better; hyperammonemia has resolved; still looks "wired"; jumpy; no N/V/F /C Objective Vital Signs - 12hr 05/21/18 04:37 Blood Pressure 168/104 Constitutional: no acute distress, alert, other (young AAM normocephalic and atraumatic with mildly increased respiratory effort) Eyes: non-icteric ENT: oropharynx moist, other (mallampatti 2) Neck: supple, no lymphadenopathy, no JVD Effort: normal Ascultation: Bilateral: clear, rhonchi Percussion: Bilateral: not dull Cardiovascular: regular rate and rhythm, other (No R/M) Gastrointestinal: normoactive bowel sounds, soft, non-tender, non-distended, other (No HSM) Integumentary: normal Extremities: no cyanosis, no edema, pink and warm, pulses normal, no ischemia or petechiae Neurologic: normal mental status, non-focal exam, pupils equal and round, CN II- XII normal, motor strength normal and Psychiatric: anxious, other (pressured; tangential thoughts) CBC and BMP: 05/23/18 05:37 05/24/18 09:32 ABG, PT/INR, D-dimer: PT/INR, D-dimer PT 13.6 Sec. (12.2-14.9) 05/16/18 08:17 INR 0.99 (0.87-1.13) 05/16/18 08:17 Abnormal lab findings: Abnormal Labs 05/16/18 05/16/18 05/16/18 08:17 08:17 08:17 WBC 18.5 H RBC 5.22 H Hct 46.2 H Seg Neuts % (Manual) 88.0 H Lymphocytes % (Manual) 6.0 L Seg Neutrophils # Man 16.3 H Lymphocytes # (Manual) 1.1 L Monocytes # (Manual) 1.1 H APTT Potassium 3.4 L Chloride 94.3 L Carbon Dioxide 17 L BUN Creatinine Glucose 137 H Lactic Acid 8.60 H* AST 47 H Ammonia Total Creatine Kinase CK-MB (CK-2) Salicylates Acetaminophen 05/16/18 05/16/18 05/16/18 08:17 08:17 08:17 WBC RBC Hct Seg Neuts % (Manual) Lymphocytes % (Manual) Seg Neutrophils # Man Lymphocytes # (Manual) Monocytes # (Manual) APTT 23.2 L Potassium Chloride Carbon Dioxide BUN Creatinine Glucose Lactic Acid AST Ammonia 96.0 H Total Creatine Kinase 1691 H CK-MB (CK-2) 15.4 H Salicylates Acetaminophen 05/16/18 05/16/18 05/16/18 08:17 08:17 11:19 WBC RBC Hct Seg Neuts % (Manual) Lymphocytes % (Manual) Seg Neutrophils # Man Lymphocytes # (Manual) Monocytes # (Manual) APTT Potassium Chloride Carbon Dioxide 21 L BUN Creatinine 0.7 L Glucose Lactic Acid AST 50 H Ammonia Total Creatine Kinase CK-MB (CK-2) Salicylates < 0.3 L Acetaminophen < 5.0 L 05/16/18 05/16/18 05/17/18 13:37 23:00 04:17 WBC 12.0 H RBC Hct Seg Neuts % (Manual) Lymphocytes % (Manual) Seg Neutrophils # Man Lymphocytes # (Manual) Monocytes # (Manual) APTT Potassium Chloride Carbon Dioxide BUN Creatinine Glucose Lactic Acid 0.60 L AST Ammonia Total Creatine Kinase 2794 H CK-MB (CK-2) Salicylates Acetaminophen 05/17/18 05/18/18 05/19/18 04:17 03:57 13:34 WBC RBC Hct Seg Neuts % (Manual) Lymphocytes % (Manual) Seg Neutrophils # Man Lymphocytes # (Manual) Monocytes # (Manual) APTT Potassium Chloride Carbon Dioxide 21 L BUN 6 L Creatinine 0.7 L 0.6 L Glucose 62 L Lactic Acid AST Ammonia Total Creatine Kinase 3668 H 2654 H 1108 H CK-MB (CK-2) Salicylates Acetaminophen 05/21/18 06:42 WBC RBC Hct Seg Neuts % (Manual) Lymphocytes % (Manual) Seg Neutrophils # Man Lymphocytes # (Manual) Monocytes # (Manual) APTT Potassium Chloride Carbon Dioxide BUN Creatinine Glucose Lactic Acid AST Ammonia Total Creatine Kinase 2424 H CK-MB (CK-2) Salicylates Acetaminophen Allied health notes reviewed: nursing
[2018-05-21] MEDS: SODIUM CHLORIDE FLUSH SYRINGE 10 ML IV SCH ×2 (13:19→22:54)
[2018-05-21] MEDS ORDERED: NACL 0.9% 500 ML 500 ML IV ONE (13:22)
--- NOTE | 2018-05-21 13:22 | Progress Note ---
Assessment and Plan Assessment and plan: --Hypertensive urgency; continue current antihypertensives When necessary medications --Acute Metabolic Encephalopathy; Multifactorial, secondary to psychosis, medication Closely monitor --Status post lumbar puncture. Meningitis ruled out --Rhabdomyolysis; CK levels trending down Patient was agitated and excessive and pulled off IV lines Could not receive vigorous IV hydration Continue IV fluids, monitor input output, encourage plenty oral fluids --Acute psychosis; possible bipolar/schizophrenia Psych following, continue psych medications --History of hazing many years ago; --Hyperammonemia; present on admission Resolved --SIRS criteria present on admission --Lactic acidosis; resolved --DVT prophylaxis; Lovenox --1013 status Possible transfer to inpatient psych facility when medically stable Plan of care is reviewed. The patient's parents and his nurse History Interval history: Patient seen and examined medical records reviewed Last night events noted The patient is currently sedated, on psych medications child guidance counselor and family at bedside Vital signs noted Hospitalist Physical - Constitutional Vitals: Temp Pulse Resp BP Pulse Ox 98.6 F 74 20 153/105 98 05/21/18 12:45 05/21/18 12:45 05/21/18 12:45 05/21/18 12:45 05/21/18 12:45 General appearance: Present: no acute distress, well-nourished, other (sedated easily awakens) - EENT Eyes: Present: PERRL, EOM intact - Neck Neck: Present: supple, normal ROM - Respiratory Respiratory effort: normal Respiratory: negative: rales, rhonchi, wheezing - Cardiovascular Rhythm: regular Heart Sounds: Present: S1 & S2 - Extremities Extremities: no ischemia, No edema - Abdominal General gastrointestinal: soft, non-tender, non-distended, normal bowel sounds - Integumentary Integumentary: Present: clear, warm - Psychiatric Psychiatric: other (sedated easily awakens) - Neurologic Neurologic: moves all extremities Results - Labs CBC & Chem 7: 05/18/18 03:57 05/21/18 06:42 Labs: Laboratory Last Values WBC 9.7 K/mm3 (4.5-11.0) 05/18/18 03:57 RBC 5.02 M/mm3 (3.65-5.03) 05/18/18 03:57 Hgb 15.0 gm/dl (11.8-15.2) 05/18/18 03:57 Hct 44.2 % (35.5-45.6) 05/18/18 03:57 MCV 88 fl (84-94) 05/18/18 03:57 MCH 30 pg (28-32) 05/18/18 03:57 MCHC 34 % (32-34) 05/18/18 03:57 RDW 14.3 % (13.2-15.2) 05/18/18 03:57 Plt Count 224 K/mm3 (140-440) 05/18/18 03:57 Add Manual Diff Complete 05/16/18 08:17 Total Counted 100 05/16/18 08:17 Seg Neuts % (Manual) 88.0 % (40.0-70.0) H 05/16/18 08:17 Band Neutrophils % 0 % 05/16/18 08:17 Lymphocytes % (Manual) 6.0 % (13.4-35.0) L 05/16/18 08:17 Reactive Lymphs % (Man) 0 % 05/16/18 08:17 Monocytes % (Manual) 6.0 % (0.0-7.3) 05/16/18 08:17 Eosinophils % (Manual) 0 % (0.0-4.3) 05/16/18 08:17 Basophils % (Manual) 0 % (0.0-1.8) 05/16/18 08:17 Metamyelocytes % 0 % 05/16/18 08:17 Myelocytes % 0 % 05/16/18 08:17 Promyelocytes % 0 % 05/16/18 08:17 Blast Cells % 0 % 05/16/18 08:17 Nucleated RBC % Not Reportable 05/16/18 08:17 Seg Neutrophils # Man 16.3 K/mm3 (1.8-7.7) H 05/16/18 08:17 Band Neutrophils # 0.0 K/mm3 05/16/18 08:17 Lymphocytes # (Manual) 1.1 K/mm3 (1.2-5.4) L 05/16/18 08:17 Abs React Lymphs (Man) 0.0 K/mm3 05/16/18 08:17 Monocytes # (Manual) 1.1 K/mm3 (0.0-0.8) H 05/16/18 08:17 Eosinophils # (Manual) 0.0 K/mm3 (0.0-0.4) 05/16/18 08:17 Basophils # (Manual) 0.0 K/mm3 (0.0-0.1) 05/16/18 08:17 Metamyelocytes # 0.0 K/mm3 05/16/18 08:17 Myelocytes # 0.0 K/mm3 05/16/18 08:17 Promyelocytes # 0.0 K/mm3 05/16/18 08:17 Blast Cells # 0.0 K/mm3 05/16/18 08:17 WBC Morphology Not Reportable 05/16/18 08:17 Hypersegmented Neuts Not Reportable 05/16/18 08:17 Hyposegmented Neuts Not Reportable 05/16/18 08:17 Hypogranular Neuts Not Reportable 05/16/18 08:17 Smudge Cells Not Reportable 05/16/18 08:17 Toxic Granulation Not Reportable 05/16/18 08:17 Toxic Vacuolation Not Reportable 05/16/18 08:17 Dohle Bodies Not Reportable 05/16/18 08:17 Pelger-Huet Anomaly Not Reportable 05/16/18 08:17 Celio Rods Not Reportable 05/16/18 08:17 Platelet Estimate Consistent w auto 05/16/18 08:17 Clumped Platelets Not Reportable 05/16/18 08:17 Plt Clumps, EDTA Not Reportable 05/16/18 08:17 Large Platelets Not Reportable 05/16/18 08:17 Giant Platelets Not Reportable 05/16/18 08:17 Platelet Satelliting Not Reportable 05/16/18 08:17 Plt Morphology Comment Not Reportable 05/16/18 08:17 RBC Morphology Normal 05/16/18 08:17 Dimorphic RBCs Not Reportable 05/16/18 08:17 Polychromasia Not Reportable 05/16/18 08:17 Hypochromasia Not Reportable 05/16/18 08:17 Poikilocytosis Not Reportable 05/16/18 08:17 Anisocytosis Not Reportable 05/16/18 08:17 Microcytosis Not Reportable 05/16/18 08:17 Macrocytosis Not Reportable 05/16/18 08:17 Spherocytes Not Reportable 05/16/18 08:17 Pappenheimer Bodies Not Reportable 05/16/18 08:17 Sickle Cells Not Reportable 05/16/18 08:17 Target Cells Not Reportable 05/16/18 08:17 Tear Drop Cells Not Reportable 05/16/18 08:17 Ovalocytes Not Reportable 05/16/18 08:17 Helmet Cells Not Reportable 05/16/18 08:17 Murphy-Admire Bodies Not Reportable 05/16/18 08:17 Printer Rings Not Reportable 05/16/18 08:17 Sarah Cells Not Reportable 05/16/18 08:17 Bite Cells Not Reportable 05/16/18 08:17 Crenated Cell Not Reportable 05/16/18 08:17 Elliptocytes Not Reportable 05/16/18 08:17 Acanthocytes (Spur) Not Reportable 05/16/18 08:17 Rouleaux Not Reportable 05/16/18 08:17 Hemoglobin C Crystals Not Reportable 05/16/18 08:17 Schistocytes Not Reportable 05/16/18 08:17 Malaria parasites Not Reportable 05/16/18 08:17 Rajat Bodies Not Reportable 05/16/18 08:17 Hem Pathologist Commnt No 05/16/18 08:17 PT 13.6 Sec. (12.2-14.9) 05/16/18 08:17 INR 0.99 (0.87-1.13) 05/16/18 08:17 APTT 23.2 Sec. (24.2-36.6) L 05/16/18 08:17 Sodium 144 mmol/L (137-145) 05/21/18 06:42 Potassium 3.6 mmol/L (3.6-5.0) 05/21/18 06:42 Chloride 103.3 mmol/L (98-107) 05/21/18 06:42 Carbon Dioxide 22 mmol/L (22-30) 05/21/18 06:42 Anion Gap 22 mmol/L 05/21/18 06:42 BUN 12 mg/dL (9-20) 05/21/18 06:42 Creatinine 1.0 mg/dL (0.8-1.5) D 05/21/18 06:42 Estimated GFR > 60 ml/min 05/21/18 06:42 BUN/Creatinine Ratio 12 % 05/21/18 06:42 Glucose 86 mg/dL (75-100) 05/21/18 06:42 POC Glucose 90 (70-105) 05/16/18 07:37 Lactic Acid 0.60 mmol/L (0.7-2.0) L 05/16/18 23:00 Calcium 8.9 mg/dL (8.4-10.2) 05/21/18 06:42 Magnesium 2.20 mg/dL (1.7-2.3) 05/16/18 08:17 Total Bilirubin 0.60 mg/dL (0.1-1.2) 05/16/18 11:19 AST 50 units/L (5-40) H 05/16/18 11:19 ALT 20 units/L (7-56) 05/16/18 11:19 Alkaline Phosphatase 69 units/L (35-129) 05/16/18 11:19 Ammonia 40.0 umol/L (25-60) 05/19/18 13:34 Total Creatine Kinase 2424 units/L (55-170) H 05/21/18 06:42 CK-MB (CK-2) 15.4 ng/mL (0.0-4.0) H 05/16/18 08:17 CK-MB (CK-2) Rel Index 0.9 (0-4) 05/16/18 08:17 Troponin T < 0.010 ng/mL (0.00-0.029) 05/16/18 08:17 NT-Pro-B Natriuret Pep 237.7 pg/mL (0-450) 05/16/18 08:17 Total Protein 6.9 g/dL (6.3-8.2) 05/16/18 11:19 Albumin 4.1 g/dL (3.9-5) 05/16/18 11:19 Albumin/Globulin Ratio 1.5 % 05/16/18 11:19 TSH 2.690 mlU/mL (0.270-4.200) 05/16/18 08:17 Urine Color Yellow (Yellow) 05/16/18 10:21 Urine Turbidity Clear (Clear) 05/16/18 10:21 Urine pH 5.0 (5.0-7.0) 05/16/18 10:21 Ur Specific [place] 1.018 (1.003-1.030) 05/16/18 10:21 Urine Protein 100 mg/dl mg/dL (Negative) 05/16/18 10:21 Urine Glucose (UA) Neg mg/dL (Negative) 05/16/18 10:21 Urine Ketones 20 mg/dL (Negative) 05/16/18 10:21 Urine Blood Mod (Negative) 05/16/18 10:21 Urine Nitrite Neg (Negative) 05/16/18 10:21 Urine Bilirubin Neg (Negative) 05/16/18 10:21 Urine Urobilinogen < 2.0 mg/dL (<2.0) 05/16/18 10:21 Ur Leukocyte Esterase Neg (Negative) 05/16/18 10:21 Urine WBC (Auto) 1.0 /HPF (0.0-6.0) 05/16/18 10:21 Urine RBC (Auto) 2.0 /HPF (0.0-6.0) 05/16/18 10:21 U Epithel Cells (Auto) < 1.0 /HPF (0-13.0) 05/16/18 10:21 Urine Mucus Few /HPF 05/16/18 10:21 CSF Appearance Clear 05/16/18 Unknown CSF Color Colorless 05/16/18 Unknown CSF WBC 1 /mm3 (1-10) 05/16/18 Unknown CSF RBC 1 /mm3 (0-0) 05/16/18 Unknown CSF Seg Neutrophils 3.0 % (0-6) 05/16/18 Unknown CSF Lymphocytes % 18.0 % (40-80) 05/16/18 Unknown CSF Reactive Lymphs Not Reportable 05/16/18 Unknown CSF Monocytes % 79.0 % (15-45) 05/16/18 Unknown CSF Eosinophils % Not Reportable 05/16/18 Unknown CSF Basophils Not Reportable 05/16/18 Unknown CSF Pathologist Review C 05/16/18 Unknown CSF Glucose 77 mg/dL 05/16/18 Unknown CSF Total Protein 34 mg/dL 05/16/18 Unknown Salicylates < 0.3 mg/dL (2.8-20.0) L 05/16/18 08:17 Urine Opiates Screen Presumptive negative 05/16/18 10:21 Urine Methadone Screen Presumptive negative 05/16/18 10:21 Acetaminophen < 5.0 ug/mL (10.0-30.0) L 05/16/18 08:17 Ur Barbiturates Screen Presumptive negative 05/16/18 10:21 Ur Phencyclidine Scrn Presumptive negative 05/16/18 10:21 Ur Amphetamines Screen Presumptive negative 05/16/18 10:21 U Benzodiazepines Scrn Presumptive positive 05/16/18 10:21 Urine Cocaine Screen Presumptive negative 05/16/18 10:21 U Marijuana (THC) Screen Presumptive negative 05/16/18 10:21 Drugs of Abuse Note Disclamer 05/16/18 10:21 Plasma/Serum Alcohol < 0.01 % (0-0.07) 05/16/18 08:17 Blood Type B POSITIVE 05/16/18 11:19 Antibody Screen Negative 05/16/18 11:19
[2018-05-21] MEDS: COGENTIN PO SCH (22:46)
[2018-05-21] MEDS: LOVENOX SUB-Q SCH (22:46)
[2018-05-21] MEDS: APRESOLINE PO SCH (23:01)
[2018-05-22] MEDS: ATIVAN IV PRN ×4 (00:38→19:36)
[2018-05-22] MEDS: NACL 0.9% 1000 ML 1,000 ML IV SCH ×4 (01:14→14:16)
[2018-05-22] MEDS: APRESOLINE IV PRN (04:40)
[2018-05-22 05:52] LABS: Basophils # (Auto) 0.1 K/mm3 (0.0-0.1); Basophils % (Auto) 0.8 % (0.0-1.8); Eosinophils # (Auto) 0.1 K/mm3 (0.0-0.4); Eosinophils % (Auto) 0.9 % (0.0-4.3); Hematocrit 42.8 % (35.5-45.6); Hemoglobin 14.5 gm/dl (11.8-15.2); Lymphocytes # (Auto) 1.7 K/mm3 (1.2-5.4); Lymphocytes % (Auto) 16.2 % (13.4-35.0); Mean Corpuscular HGB Conc 34 % (32-34); Mean Corpuscular Hemoglobin 30 pg (28-32); Mean Corpuscular Volume 89 fl (84-94); Monocytes % (Auto) 9.3 % (0.0-7.3); Platelet Count 197 K/mm3 (140-440); Red Blood Count 4.79 M/mm3 (3.65-5.03); Red Cell Distribution Width 14.3 % (13.2-15.2)
[2018-05-22 06:31] LABS: BUN/Creatinine Ratio 9; Blood Urea Nitrogen 6 mg/dL (9-20); Calcium 8.5 mg/dL (8.4-10.2); Hemolysis Index 49
[2018-05-22] MEDS: TENORMIN PO SCH ×2 (08:20→14:12)
[2018-05-22] MEDS: CATAPRES PO SCH ×3 (08:21→21:17)
[2018-05-22] MEDS: SODIUM CHLORIDE FLUSH SYRINGE 10 ML IV SCH ×2 (09:41→23:46)
--- NOTE | 2018-05-22 12:14 | Progress Note ---
Subjective - Reason for Consult Consult date: 05/22/18 Reason for consult: Psychiatry Follow-up - Chief Complaint Chief complaint: "I want to sleep" 32 y.o. AA male presenting to the ER for AMS. Psychiatry was consulted to see patient. Today the patient is calm, but disorganized during the assessment. The patient has had multiple psychotic episodes at night. He was able to state that he feels anxious throughout the day that prevents him from sleeping at night. He stated that he has not slept in 3 nights. Per collateral information from his parents, they confirmed that the patient isn't sleeping at night. Throughout the interview, he asked several times is he in trouble. He stated, " I feel like I did something wrong." He denies SI/HI's and VH's. He acknowledged hearing voices at night that is "confusing" per the patient. Mental Status Exam - Vital signs Last Vital Signs Temp 99.3 F 05/22/18 09:58 Pulse 75 05/22/18 09:58 Resp 22 05/22/18 09:58 BP 153/99 05/22/18 09:58 Pulse Ox 95 05/22/18 09:58 - Exam Narrative exam: MSE: Appearance: calm Behavior: regular eye contact Speech: regular rate and tone Mood: apprehensive Affect: congruent to mood Thought Process: disorganized Thought Content: denies SI/HI's and AVH's, paranoid, delusional Motor Activity: ambulatory Cognition: A/O x 3 Insight: variable Judgment: poor Assessment and Plan Impression: Unspecified Psychosis. R/O Alcohol Use DO. Insomnia. Today the patient is calm and cooperative during the assessment. CK is elevated. The patient is in restraints DDx: Bipolar DO, R/O Schizophrenia Medical: Acute Metabolic Encephalopathy on admission Recommendation/Plan: Continue 1013 with placement to inpatient psy services once medically clear. Continue Seroquel 200 mg PO HS for psychosis, Cogentin 0.5 mg PO HS for EPS prevention, Thorazine 25 mg IM Q8hrs PRN for acute agitation, and Klonopin 0.5 mg PO BID for anxiety. Discussed possible metabolic side effects of Seroquel with patient and his parents. The patient's parents is aware that their son will be transferred to a mental health facility once medically clear.
[2018-05-22] MEDS: APRESOLINE PO SCH ×3 (14:42→21:17)
[2018-05-22] MEDS: THORAZINE IM PRN (19:12)
--- NOTE | 2018-05-22 19:25 | Progress Note ---
Assessment and Plan Patient sleeping at this time. on room air.O2 saturation 96% .No acute respiratory distress. - Patient Problems (1) Altered mental status Current Visit: Yes Status: Acute Qualifiers: Altered mental status type: transient alteration of awareness Qualified Code(s): R40.4 - Transient alteration of awareness Plan to address problem: Patient sleeping at this time. (2) Delirium Current Visit: Yes Status: Acute Plan to address problem: Improved. (3) Rhabdomyolysis Current Visit: Yes Status: Acute Qualifiers: Rhabdomyolysis type: non-traumatic Qualified Code(s): M62.82 - Rhabdomyolysis Plan to address problem: Total CPK still high. But it is coming down. (4) Tobacco use Current Visit: Yes Status: Acute Plan to address problem: Counselled to stop smoking. Subjective Principal diagnosis: metabolic encephalopathy, hypertensive urgency, acute psychosis, SIRS Interval history: Patient sleeping at this time. on room air.O2 saturation 96% .No acute respiratory distress. Objective Vital Signs - 12hr 05/22/18 05/22/18 05/22/18 07:56 08:11 08:20 Temperature 98.5 F 98.5 F Pulse Rate 104 H 91 H 80 Respiratory 18 20 Rate Blood Pressure 175/116 165/108 165/108 O2 Sat by Pulse 97 88 Oximetry 05/22/18 05/22/18 09:58 14:34 Temperature 99.3 F Pulse Rate 75 77 Respiratory 22 20 Rate Blood Pressure 153/99 164/105 O2 Sat by Pulse 95 96 Oximetry Constitutional: no acute distress, asleep Eyes: non-icteric ENT: oropharynx moist, other (mallampatti 2) Neck: supple, no lymphadenopathy, no JVD Effort: normal Ascultation: Bilateral: clear, rhonchi Percussion: Bilateral: not dull Cardiovascular: regular rate and rhythm, other (No R/M) Gastrointestinal: normoactive bowel sounds, soft, non-tender, non-distended, other (No HSM) Integumentary: normal Extremities: no cyanosis, no edema, pink and warm, pulses normal, no ischemia or petechiae Neurologic: normal mental status, non-focal exam, pupils equal and round, CN II- XII normal, motor strength normal and Psychiatric: anxious, other (pressured; tangential thoughts) CBC and BMP: 05/22/18 05:16 05/22/18 05:16 ABG, PT/INR, D-dimer: PT/INR, D-dimer PT 13.6 Sec. (12.2-14.9) 05/16/18 08:17 INR 0.99 (0.87-1.13) 05/16/18 08:17 Abnormal lab findings: Abnormal Labs 05/16/18 05/16/18 05/16/18 08:17 08:17 08:17 WBC 18.5 H RBC 5.22 H Hct 46.2 H [place] % (Auto) [place] # Seg Neutrophils % Seg Neuts % (Manual) 88.0 H Lymphocytes % (Manual) 6.0 L Seg Neutrophils # Man 16.3 H Lymphocytes # (Manual) 1.1 L Monocytes # (Manual) 1.1 H APTT Potassium 3.4 L Chloride 94.3 L Carbon Dioxide 17 L BUN Creatinine Glucose 137 H Lactic Acid 8.60 H* AST 47 H Ammonia Total Creatine Kinase CK-MB (CK-2) Salicylates Acetaminophen 05/16/18 05/16/18 05/16/18 08:17 08:17 08:17 WBC RBC Hct [place] % (Auto) [place] # Seg Neutrophils % Seg Neuts % (Manual) Lymphocytes % (Manual) Seg Neutrophils # Man Lymphocytes # (Manual) Monocytes # (Manual) APTT 23.2 L Potassium Chloride Carbon Dioxide BUN Creatinine Glucose Lactic Acid AST Ammonia 96.0 H Total Creatine Kinase 1691 H CK-MB (CK-2) 15.4 H Salicylates Acetaminophen 05/16/18 05/16/18 05/16/18 08:17 08:17 11:19 WBC RBC Hct [place] % (Auto) [place] # Seg Neutrophils % Seg Neuts % (Manual) Lymphocytes % (Manual) Seg Neutrophils # Man Lymphocytes # (Manual) Monocytes # (Manual) APTT Potassium Chloride Carbon Dioxide 21 L BUN Creatinine 0.7 L Glucose Lactic Acid AST 50 H Ammonia Total Creatine Kinase CK-MB (CK-2) Salicylates < 0.3 L Acetaminophen < 5.0 L 05/16/18 05/16/18 05/17/18 13:37 23:00 04:17 WBC 12.0 H RBC Hct [place] % (Auto) [place] # Seg Neutrophils % Seg Neuts % (Manual) Lymphocytes % (Manual) Seg Neutrophils # Man Lymphocytes # (Manual) Monocytes # (Manual) APTT Potassium Chloride Carbon Dioxide BUN Creatinine Glucose Lactic Acid 0.60 L AST Ammonia Total Creatine Kinase 2794 H CK-MB (CK-2) Salicylates Acetaminophen 05/17/18 05/18/18 05/19/18 04:17 03:57 13:34 WBC RBC Hct [place] % (Auto) [place] # Seg Neutrophils % Seg Neuts % (Manual) Lymphocytes % (Manual) Seg Neutrophils # Man Lymphocytes # (Manual) Monocytes # (Manual) APTT Potassium Chloride Carbon Dioxide 21 L BUN 6 L Creatinine 0.7 L 0.6 L Glucose 62 L Lactic Acid AST Ammonia Total Creatine Kinase 3668 H 2654 H 1108 H CK-MB (CK-2) Salicylates Acetaminophen 05/21/18 05/22/18 05/22/18 06:42 05:16 05:16 WBC RBC Hct [place] % (Auto) 9.3 H [place] # 1.0 H Seg Neutrophils % 72.8 H Seg Neuts % (Manual) Lymphocytes % (Manual) Seg Neutrophils # Man Lymphocytes # (Manual) Monocytes # (Manual) APTT Potassium Chloride Carbon Dioxide BUN 6 L Creatinine 0.7 L Glucose Lactic Acid AST Ammonia Total Creatine Kinase 2424 H 1808 H CK-MB (CK-2) Salicylates Acetaminophen Allied health notes reviewed: nursing
[2018-05-22] MEDS ORDERED: HALDOL IM ONE (19:28)
--- NOTE | 2018-05-22 19:56 | Progress Note ---
Assessment and Plan Assessment and plan: --Acute psychosis; possible bipolar/schizophrenia Psych following, continue psych medications --Rhabdomyolysis; CK levels trending down Aggressive IV hydration, input output monitoring, closely monitor CK levels 1808 --Hypertensive urgency; continue current antihypertensives When necessary medications --Acute Metabolic Encephalopathy; Multifactorial, secondary to psychosis, medication Closely monitor --Status post lumbar puncture. Meningitis ruled out --History of hazing many years ago; --Hyperammonemia; present on admission Resolved --SIRS criteria present on admission resolved --Lactic acidosis; resolved --DVT prophylaxis; Lovenox --1013 status Possible transfer to inpatient psych facility when medically stable Plan of care is reviewed. The patient's parents and his nurse History Interval history: Patient seen and examined this morning medical records reviewed Patient is calm and quiet no agitation Last night events reviewed History and for safety confused and paranoid at times, Hospitalist Physical - Constitutional Vitals: Temp Pulse Resp BP Pulse Ox 99.3 F 77 20 164/105 96 05/22/18 09:58 05/22/18 14:34 05/22/18 14:34 05/22/18 14:34 05/22/18 14:34 General appearance: Present: no acute distress, well-nourished, other (confused) - EENT Eyes: Present: PERRL, scleral icterus - Neck Neck: Present: supple, normal ROM - Respiratory Respiratory effort: normal Respiratory: bilateral: diminished, negative: rales, rhonchi, wheezing - Cardiovascular Rhythm: regular Heart Sounds: Present: S1 & S2 - Extremities Extremities: no ischemia, No edema - Abdominal General gastrointestinal: soft, non-tender, non-distended, normal bowel sounds - Integumentary Integumentary: Present: clear, warm - Psychiatric Psychiatric: appropriate mood/affect, cooperative - Neurologic Neurologic: CNII-XII intact, moves all extremities Results - Labs CBC & Chem 7: 05/22/18 05:16 05/22/18 05:16 Labs: Laboratory Last Values WBC 10.3 K/mm3 (4.5-11.0) 05/22/18 05:16 RBC 4.79 M/mm3 (3.65-5.03) 05/22/18 05:16 Hgb 14.5 gm/dl (11.8-15.2) 05/22/18 05:16 Hct 42.8 % (35.5-45.6) 05/22/18 05:16 MCV 89 fl (84-94) 05/22/18 05:16 MCH 30 pg (28-32) 05/22/18 05:16 MCHC 34 % (32-34) 05/22/18 05:16 RDW 14.3 % (13.2-15.2) 05/22/18 05:16 Plt Count 197 K/mm3 (140-440) 05/22/18 05:16 Lymph % (Auto) 16.2 % (13.4-35.0) 05/22/18 05:16 [place] % (Auto) 9.3 % (0.0-7.3) H 05/22/18 05:16 Eos % (Auto) 0.9 % (0.0-4.3) 05/22/18 05:16 Baso % (Auto) 0.8 % (0.0-1.8) 05/22/18 05:16 Lymph # 1.7 K/mm3 (1.2-5.4) 05/22/18 05:16 [place] # 1.0 K/mm3 (0.0-0.8) H 05/22/18 05:16 Eos # 0.1 K/mm3 (0.0-0.4) 05/22/18 05:16 Baso # 0.1 K/mm3 (0.0-0.1) 05/22/18 05:16 Add Manual Diff Complete 05/16/18 08:17 Total Counted 100 05/16/18 08:17 Seg Neutrophils % 72.8 % (40.0-70.0) H 05/22/18 05:16 Seg Neuts % (Manual) 88.0 % (40.0-70.0) H 05/16/18 08:17 Band Neutrophils % 0 % 05/16/18 08:17 Lymphocytes % (Manual) 6.0 % (13.4-35.0) L 05/16/18 08:17 Reactive Lymphs % (Man) 0 % 05/16/18 08:17 Monocytes % (Manual) 6.0 % (0.0-7.3) 05/16/18 08:17 Eosinophils % (Manual) 0 % (0.0-4.3) 05/16/18 08:17 Basophils % (Manual) 0 % (0.0-1.8) 05/16/18 08:17 Metamyelocytes % 0 % 05/16/18 08:17 Myelocytes % 0 % 05/16/18 08:17 Promyelocytes % 0 % 05/16/18 08:17 Blast Cells % 0 % 05/16/18 08:17 Nucleated RBC % Not Reportable 05/16/18 08:17 Seg Neutrophils # 7.5 K/mm3 (1.8-7.7) 05/22/18 05:16 Seg Neutrophils # Man 16.3 K/mm3 (1.8-7.7) H 05/16/18 08:17 Band Neutrophils # 0.0 K/mm3 05/16/18 08:17 Lymphocytes # (Manual) 1.1 K/mm3 (1.2-5.4) L 05/16/18 08:17 Abs React Lymphs (Man) 0.0 K/mm3 05/16/18 08:17 Monocytes # (Manual) 1.1 K/mm3 (0.0-0.8) H 05/16/18 08:17 Eosinophils # (Manual) 0.0 K/mm3 (0.0-0.4) 05/16/18 08:17 Basophils # (Manual) 0.0 K/mm3 (0.0-0.1) 05/16/18 08:17 Metamyelocytes # 0.0 K/mm3 05/16/18 08:17 Myelocytes # 0.0 K/mm3 05/16/18 08:17 Promyelocytes # 0.0 K/mm3 05/16/18 08:17 Blast Cells # 0.0 K/mm3 05/16/18 08:17 WBC Morphology Not Reportable 05/16/18 08:17 Hypersegmented Neuts Not Reportable 05/16/18 08:17 Hyposegmented Neuts Not Reportable 05/16/18 08:17 Hypogranular Neuts Not Reportable 05/16/18 08:17 Smudge Cells Not Reportable 05/16/18 08:17 Toxic Granulation Not Reportable 05/16/18 08:17 Toxic Vacuolation Not Reportable 05/16/18 08:17 Dohle Bodies Not Reportable 05/16/18 08:17 Pelger-Huet Anomaly Not Reportable 05/16/18 08:17 Celio Rods Not Reportable 05/16/18 08:17 Platelet Estimate Consistent w auto 05/16/18 08:17 Clumped Platelets Not Reportable 05/16/18 08:17 Plt Clumps, EDTA Not Reportable 05/16/18 08:17 Large Platelets Not Reportable 05/16/18 08:17 Giant Platelets Not Reportable 05/16/18 08:17 Platelet Satelliting Not Reportable 05/16/18 08:17 Plt Morphology Comment Not Reportable 05/16/18 08:17 RBC Morphology Normal 05/16/18 08:17 Dimorphic RBCs Not Reportable 05/16/18 08:17 Polychromasia Not Reportable 05/16/18 08:17 Hypochromasia Not Reportable 05/16/18 08:17 Poikilocytosis Not Reportable 05/16/18 08:17 Anisocytosis Not Reportable 05/16/18 08:17 Microcytosis Not Reportable 05/16/18 08:17 Macrocytosis Not Reportable 05/16/18 08:17 Spherocytes Not Reportable 05/16/18 08:17 Pappenheimer Bodies Not Reportable 05/16/18 08:17 Sickle Cells Not Reportable 05/16/18 08:17 Target Cells Not Reportable 05/16/18 08:17 Tear Drop Cells Not Reportable 05/16/18 08:17 Ovalocytes Not Reportable 05/16/18 08:17 Helmet Cells Not Reportable 05/16/18 08:17 Murphy-Kempner Bodies Not Reportable 05/16/18 08:17 [place] Rings Not Reportable 05/16/18 08:17 [place] Cells Not Reportable 05/16/18 08:17 Bite Cells Not Reportable 05/16/18 08:17 Crenated Cell Not Reportable 05/16/18 08:17 Elliptocytes Not Reportable 05/16/18 08:17 Acanthocytes (Spur) Not Reportable 05/16/18 08:17 Rouleaux Not Reportable 05/16/18 08:17 Hemoglobin C Crystals Not Reportable 05/16/18 08:17 Schistocytes Not Reportable 05/16/18 08:17 Malaria parasites Not Reportable 05/16/18 08:17 Rajat Bodies Not Reportable 05/16/18 08:17 Hem Pathologist Commnt No 05/16/18 08:17 PT 13.6 Sec. (12.2-14.9) 05/16/18 08:17 INR 0.99 (0.87-1.13) 05/16/18 08:17 APTT 23.2 Sec. (24.2-36.6) L 05/16/18 08:17 Sodium 143 mmol/L (137-145) 05/22/18 05:16 Potassium 4.0 mmol/L (3.6-5.0) 05/22/18 05:16 Chloride 106.8 mmol/L (98-107) 05/22/18 05:16 Carbon Dioxide 24 mmol/L (22-30) 05/22/18 05:16 Anion Gap 16 mmol/L 05/22/18 05:16 BUN 6 mg/dL (9-20) L 05/22/18 05:16 Creatinine 0.7 mg/dL (0.8-1.5) L 05/22/18 05:16 Estimated GFR > 60 ml/min 05/22/18 05:16 BUN/Creatinine Ratio 9 % 05/22/18 05:16 Glucose 87 mg/dL (75-100) 05/22/18 05:16 POC Glucose 90 (70-105) 05/16/18 07:37 Lactic Acid 0.60 mmol/L (0.7-2.0) L 05/16/18 23:00 Calcium 8.5 mg/dL (8.4-10.2) 05/22/18 05:16 Magnesium 2.20 mg/dL (1.7-2.3) 05/16/18 08:17 Total Bilirubin 0.60 mg/dL (0.1-1.2) 05/16/18 11:19 AST 50 units/L (5-40) H 05/16/18 11:19 ALT 20 units/L (7-56) 05/16/18 11:19 Alkaline Phosphatase 69 units/L (35-129) 05/16/18 11:19 Ammonia 40.0 umol/L (25-60) 05/19/18 13:34 Total Creatine Kinase 1808 units/L (55-170) H 05/22/18 05:16 CK-MB (CK-2) 15.4 ng/mL (0.0-4.0) H 05/16/18 08:17 CK-MB (CK-2) Rel Index 0.9 (0-4) 05/16/18 08:17 Troponin T < 0.010 ng/mL (0.00-0.029) 05/16/18 08:17 NT-Pro-B Natriuret Pep 237.7 pg/mL (0-450) 05/16/18 08:17 Total Protein 6.9 g/dL (6.3-8.2) 05/16/18 11:19 Albumin 4.1 g/dL (3.9-5) 05/16/18 11:19 Albumin/Globulin Ratio 1.5 % 05/16/18 11:19 TSH 2.690 mlU/mL (0.270-4.200) 05/16/18 08:17 Urine Color Yellow (Yellow) 05/16/18 10:21 Urine Turbidity Clear (Clear) 05/16/18 10:21 Urine pH 5.0 (5.0-7.0) 05/16/18 10:21 Ur Specific [place] 1.018 (1.003-1.030) 05/16/18 10:21 Urine Protein 100 mg/dl mg/dL (Negative) 05/16/18 10:21 Urine Glucose (UA) Neg mg/dL (Negative) 05/16/18 10:21 Urine Ketones 20 mg/dL (Negative) 05/16/18 10:21 Urine Blood Mod (Negative) 05/16/18 10:21 Urine Nitrite Neg (Negative) 05/16/18 10:21 Urine Bilirubin Neg (Negative) 05/16/18 10:21 Urine Urobilinogen < 2.0 mg/dL (<2.0) 05/16/18 10:21 Ur Leukocyte Esterase Neg (Negative) 05/16/18 10:21 Urine WBC (Auto) 1.0 /HPF (0.0-6.0) 05/16/18 10:21 Urine RBC (Auto) 2.0 /HPF (0.0-6.0) 05/16/18 10:21 U Epithel Cells (Auto) < 1.0 /HPF (0-13.0) 05/16/18 10:21 Urine Mucus Few /HPF 05/16/18 10:21 CSF Appearance Clear 05/16/18 Unknown CSF Color Colorless 05/16/18 Unknown CSF WBC 1 /mm3 (1-10) 05/16/18 Unknown CSF RBC 1 /mm3 (0-0) 05/16/18 Unknown CSF Seg Neutrophils 3.0 % (0-6) 05/16/18 Unknown CSF Lymphocytes % 18.0 % (40-80) 05/16/18 Unknown CSF Reactive Lymphs Not Reportable 05/16/18 Unknown CSF Monocytes % 79.0 % (15-45) 05/16/18 Unknown CSF Eosinophils % Not Reportable 05/16/18 Unknown CSF Basophils Not Reportable 05/16/18 Unknown CSF Pathologist Review C 05/16/18 Unknown CSF Glucose 77 mg/dL 05/16/18 Unknown CSF Total Protein 34 mg/dL 05/16/18 Unknown Salicylates < 0.3 mg/dL (2.8-20.0) L 05/16/18 08:17 Urine Opiates Screen Presumptive negative 05/16/18 10:21 Urine Methadone Screen Presumptive negative 05/16/18 10:21 Acetaminophen < 5.0 ug/mL (10.0-30.0) L 05/16/18 08:17 Ur Barbiturates Screen Presumptive negative 05/16/18 10:21 Ur Phencyclidine Scrn Presumptive negative 05/16/18 10:21 Ur Amphetamines Screen Presumptive negative 05/16/18 10:21 U Benzodiazepines Scrn Presumptive positive 05/16/18 10:21 Urine Cocaine Screen Presumptive negative 05/16/18 10:21 U Marijuana (THC) Screen Presumptive negative 05/16/18 10:21 Drugs of Abuse Note Disclamer 05/16/18 10:21 Plasma/Serum Alcohol < 0.01 % (0-0.07) 05/16/18 08:17 Blood Type B POSITIVE 05/16/18 11:19 Antibody Screen Negative 05/16/18 11:19
[2018-05-22] MEDS: COGENTIN PO SCH (21:17)
[2018-05-22] MEDS: LOVENOX SUB-Q SCH (21:18)
[2018-05-23] MEDS: NACL 0.9% 1000 ML 1,000 ML IV SCH ×5 (02:05→21:27)
[2018-05-23] MEDS: ATIVAN IV PRN ×4 (04:00→21:32)
[2018-05-23] MEDS: THORAZINE IM PRN (05:23)
[2018-05-23] MEDS: CATAPRES PO SCH ×3 (05:24→21:28)
[2018-05-23] MEDS: APRESOLINE PO SCH ×3 (05:24→21:28)
[2018-05-23 06:15] LABS: Basophils % (Auto) 0.6 % (0.0-1.8); Eosinophils # (Auto) 0.1 K/mm3 (0.0-0.4); Eosinophils % (Auto) 1.8 % (0.0-4.3); Hematocrit 41.5 % (35.5-45.6); Hemoglobin 13.7 gm/dl (11.8-15.2); Lymphocytes # (Auto) 1.7 K/mm3 (1.2-5.4); Lymphocytes % (Auto) 21.7 % (13.4-35.0); Mean Corpuscular HGB Conc 33 % (32-34); Mean Corpuscular Hemoglobin 30 pg (28-32); Mean Corpuscular Volume 91 fl (84-94); Monocytes # (Auto) 0.9 K/mm3 (0.0-0.8); Monocytes % (Auto) 11.5 % (0.0-7.3); Platelet Count 205 K/mm3 (140-440); Red Blood Count 4.58 M/mm3 (3.65-5.03); Red Cell Distribution Width 14.1 % (13.2-15.2)
[2018-05-23 06:41] LABS: Alanine Aminotransferase 32 units/L (7-56); Albumin 3.9 g/dL (3.9-5); BUN/Creatinine Ratio 10; Blood Urea Nitrogen 7 mg/dL (9-20); Calcium 8.6 mg/dL (8.4-10.2); Hemolysis Index 6
[2018-05-23 06:42] LABS: Bilirubin,Direct < 0.2 mg/dL (0-0.2)
[2018-05-23] MEDS ORDERED: LASIX IV NR (09:00)
[2018-05-23] MEDS: TENORMIN PO SCH (11:07)
[2018-05-23] MEDS: APRESOLINE IV PRN (11:08)
[2018-05-23] MEDS: SODIUM CHLORIDE FLUSH SYRINGE 10 ML IV SCH ×2 (11:09→21:31)
--- NOTE | 2018-05-23 13:55 | Progress Note ---
Assessment and Plan Patient alert, awake.Resting on room air.O2 saturation 100% .No acute respiratory distress. - Patient Problems (1) Altered mental status Current Visit: Yes Status: Acute Qualifiers: Altered mental status type: transient alteration of awareness Qualified Code(s): R40.4 - Transient alteration of awareness Plan to address problem: Patient alert, awake. Answering questions at this time. (2) Delirium Current Visit: Yes Status: Acute Plan to address problem: Improved. (3) Rhabdomyolysis Current Visit: Yes Status: Acute Qualifiers: Rhabdomyolysis type: non-traumatic Qualified Code(s): M62.82 - Rhabdomyolysis Plan to address problem: Total CPK still high. But it is coming down. (4) Tobacco use Current Visit: Yes Status: Acute Plan to address problem: Counselled to stop smoking. Subjective Date of service: 05/23/18 Principal diagnosis: metabolic encephalopathy, hypertensive urgency, acute psychosis, SIRS Interval history: Patient alert, awake.Resting on room air.O2 saturation 100% .No acute respiratory distress. Objective Constitutional: no acute distress, asleep Eyes: non-icteric ENT: oropharynx moist, other (mallampatti 2) Neck: supple, no lymphadenopathy, no JVD Effort: normal Ascultation: Bilateral: rhonchi Percussion: Bilateral: not dull Cardiovascular: regular rate and rhythm, other (No R/M) Gastrointestinal: normoactive bowel sounds, soft, non-tender, non-distended, other (No HSM) Integumentary: normal Extremities: no cyanosis, no edema, pink and warm, pulses normal, no ischemia or petechiae Neurologic: normal mental status, non-focal exam, pupils equal and round, CN II- XII normal, motor strength normal and Psychiatric: anxious, other (pressured; tangential thoughts) CBC and BMP: 05/23/18 05:37 05/23/18 05:37 ABG, PT/INR, D-dimer: PT/INR, D-dimer PT 13.6 Sec. (12.2-14.9) 05/16/18 08:17 INR 0.99 (0.87-1.13) 05/16/18 08:17 Abnormal lab findings: Abnormal Labs 05/16/18 05/16/18 05/16/18 08:17 08:17 08:17 WBC 18.5 H RBC 5.22 H Hct 46.2 H [place] % (Auto) [place] # Seg Neutrophils % Seg Neuts % (Manual) 88.0 H Lymphocytes % (Manual) 6.0 L Seg Neutrophils # Man 16.3 H Lymphocytes # (Manual) 1.1 L Monocytes # (Manual) 1.1 H APTT Potassium 3.4 L Chloride 94.3 L Carbon Dioxide 17 L BUN Creatinine Glucose 137 H Lactic Acid 8.60 H* AST 47 H Ammonia Total Creatine Kinase CK-MB (CK-2) Total Protein Salicylates Acetaminophen 05/16/18 05/16/18 05/16/18 08:17 08:17 08:17 WBC RBC Hct [place] % (Auto) [place] # Seg Neutrophils % Seg Neuts % (Manual) Lymphocytes % (Manual) Seg Neutrophils # Man Lymphocytes # (Manual) Monocytes # (Manual) APTT 23.2 L Potassium Chloride Carbon Dioxide BUN Creatinine Glucose Lactic Acid AST Ammonia 96.0 H Total Creatine Kinase 1691 H CK-MB (CK-2) 15.4 H Total Protein Salicylates Acetaminophen 05/16/18 05/16/18 05/16/18 08:17 08:17 11:19 WBC RBC Hct [place] % (Auto) [place] # Seg Neutrophils % Seg Neuts % (Manual) Lymphocytes % (Manual) Seg Neutrophils # Man Lymphocytes # (Manual) Monocytes # (Manual) APTT Potassium Chloride Carbon Dioxide 21 L BUN Creatinine 0.7 L Glucose Lactic Acid AST 50 H Ammonia Total Creatine Kinase CK-MB (CK-2) Total Protein Salicylates < 0.3 L Acetaminophen < 5.0 L 05/16/18 05/16/18 05/17/18 13:37 23:00 04:17 WBC 12.0 H RBC Hct [place] % (Auto) [place] # Seg Neutrophils % Seg Neuts % (Manual) Lymphocytes % (Manual) Seg Neutrophils # Man Lymphocytes # (Manual) Monocytes # (Manual) APTT Potassium Chloride Carbon Dioxide BUN Creatinine Glucose Lactic Acid 0.60 L AST Ammonia Total Creatine Kinase 2794 H CK-MB (CK-2) Total Protein Salicylates Acetaminophen 05/17/18 05/18/18 05/19/18 04:17 03:57 13:34 WBC RBC Hct [place] % (Auto) [place] # Seg Neutrophils % Seg Neuts % (Manual) Lymphocytes % (Manual) Seg Neutrophils # Man Lymphocytes # (Manual) Monocytes # (Manual) APTT Potassium Chloride Carbon Dioxide 21 L BUN 6 L Creatinine 0.7 L 0.6 L Glucose 62 L Lactic Acid AST Ammonia Total Creatine Kinase 3668 H 2654 H 1108 H CK-MB (CK-2) Total Protein Salicylates Acetaminophen 05/21/18 05/22/18 05/22/18 06:42 05:16 05:16 WBC RBC Hct [place] % (Auto) 9.3 H [place] # 1.0 H Seg Neutrophils % 72.8 H Seg Neuts % (Manual) Lymphocytes % (Manual) Seg Neutrophils # Man Lymphocytes # (Manual) Monocytes # (Manual) APTT Potassium Chloride Carbon Dioxide BUN 6 L Creatinine 0.7 L Glucose Lactic Acid AST Ammonia Total Creatine Kinase 2424 H 1808 H CK-MB (CK-2) Total Protein Salicylates Acetaminophen 05/23/18 05/23/18 05:37 05:37 WBC RBC Hct [place] % (Auto) 11.5 H [place] # 0.9 H Seg Neutrophils % Seg Neuts % (Manual) Lymphocytes % (Manual) Seg Neutrophils # Man Lymphocytes # (Manual) Monocytes # (Manual) APTT Potassium Chloride Carbon Dioxide BUN 7 L Creatinine 0.7 L Glucose Lactic Acid AST 46 H Ammonia Total Creatine Kinase 1700 H CK-MB (CK-2) Total Protein 6.2 L Salicylates Acetaminophen Allied health notes reviewed: nursing
--- NOTE | 2018-05-23 15:45 | Progress Note ---
Subjective - Reason for Consult Consult date: 05/23/18 Reason for consult: Psychiatry Follow-up - Chief Complaint Chief complaint: "I am not sure if I'm getting better" 32 y.o. AA male presenting to the ER for AMS. Psychiatry was consulted to see patient. Today the patient is calm, but still disorganized during the assessment. Per collateral information from his parents, the patient slept more hours last night then previous nights. The patient stated that he does not feel like he is getting better. During the interview, the patient pauses and attempt to look out the door possibly responding to some type of stimuli with paranoia. He stated, "I need to get better." He denies SI/HI's and VH's. He stated hearing voices "sometimes" the last 24 hours. He denies any side effects of his medications. Mental Status Exam - Vital signs Last Vital Signs Temp 98.9 F 05/22/18 23:40 Pulse 72 05/22/18 23:40 Resp 18 05/22/18 23:40 BP 140/85 05/22/18 23:40 Pulse Ox 95 05/22/18 23:40 - Exam Narrative exam: MSE: Appearance: calm Behavior: regular eye contact Speech: regular rate and tone Mood: apprehensive, guarded Affect: congruent to mood Thought Process: disorganized Thought Content: denies SI/HI's and AVH's, paranoid, delusional Motor Activity: ambulatory Cognition: A/O x 3 Insight: poor Judgment: poor Assessment and Plan Impression: Unspecified Psychosis. R/O Alcohol Use DO. Insomnia. Today the patient is calm and cooperative during the assessment. CK is elevated. The patient is in restraints. DDx: Bipolar DO, R/O Schizophrenia Medical: Acute Metabolic Encephalopathy on admission Recommendation/Plan: Continue 1013 with placement to inpatient psy services once medically clear. Increase Seroquel to 300 mg PO HS for psychosis. Continue Cogentin 0.5 mg PO HS for EPS prevention, Thorazine 25 mg IM Q8hrs PRN for acute agitation, and Klonopin 0.5 mg PO BID for anxiety. Discussed possible metabolic side effects of Seroquel with patient and his parents. The patient's parents is aware that their son will be transferred to a mental health facility once medically clear.
[2018-05-23] MEDS ORDERED: LASIX IV SCH (18:00)
--- NOTE | 2018-05-23 18:38 | Progress Note ---
Assessment and Plan Assessment and plan: --Acute psychosis; possible bipolar/schizophrenia Psych following, continue psych medications --Rhabdomyolysis; CK levels trending down 1808 -1700 Aggressive IV hydration, IV Lasix, input output monitoring, closely monitor Patient is a strong adult male, restrained agitated, may be contributing to his Worsening rhabdomyolysis --Hypertensive urgency; significant improvement Continue current antihypertensives and When necessary medications --Acute Metabolic Encephalopathy; Multifactorial, secondary to psychosis, medication Closely monitor --Status post lumbar puncture. Meningitis ruled out --History of hazing many years ago; --Hyperammonemia; present on admission Resolved --Lactic acidosis; resolved --DVT prophylaxis; Lovenox --1013 status Possible transfer to inpatient psych facility when medically stable Plan of care is reviewed. The patient's parents and his nurse History Interval history: Patient seen and examined medical records reviewed The patient feels slightly better Last night events noted, patient was very aggressive and agitated last night Hallucinating per mother This morning patient is calm and composed Responding appropriately, Not in acute distress Hospitalist Physical - Constitutional Vitals: Temp Pulse Resp BP Pulse Ox 98.6 F 128 H 20 179/111 100 05/23/18 15:48 05/23/18 15:48 05/23/18 15:48 05/23/18 15:48 05/23/18 15:48 General appearance: Present: no acute distress, well-nourished, other - EENT Eyes: Present: PERRL, EOM intact - Neck Neck: Present: supple, normal ROM - Respiratory Respiratory effort: normal Respiratory: bilateral: diminished, negative: rales, rhonchi, wheezing - Cardiovascular Rhythm: regular Heart Sounds: Present: S1 & S2 - Extremities Extremities: no ischemia, No edema Peripheral Pulses: within normal limits - Abdominal General gastrointestinal: soft, non-tender, non-distended, normal bowel sounds - Integumentary Integumentary: Present: clear, warm - Psychiatric Psychiatric: appropriate mood/affect, cooperative, other (confused at times) - Neurologic Neurologic: moves all extremities Results - Labs CBC & Chem 7: 05/23/18 05:37 05/23/18 05:37 Labs: Laboratory Last Values WBC 8.0 K/mm3 (4.5-11.0) 05/23/18 05:37 RBC 4.58 M/mm3 (3.65-5.03) 05/23/18 05:37 Hgb 13.7 gm/dl (11.8-15.2) 05/23/18 05:37 Hct 41.5 % (35.5-45.6) 05/23/18 05:37 MCV 91 fl (84-94) 05/23/18 05:37 MCH 30 pg (28-32) 05/23/18 05:37 MCHC 33 % (32-34) 05/23/18 05:37 RDW 14.1 % (13.2-15.2) 05/23/18 05:37 Plt Count 205 K/mm3 (140-440) 05/23/18 05:37 Lymph % (Auto) 21.7 % (13.4-35.0) 05/23/18 05:37 [place] % (Auto) 11.5 % (0.0-7.3) H 05/23/18 05:37 Eos % (Auto) 1.8 % (0.0-4.3) 05/23/18 05:37 Baso % (Auto) 0.6 % (0.0-1.8) 05/23/18 05:37 Lymph # 1.7 K/mm3 (1.2-5.4) 05/23/18 05:37 [place] # 0.9 K/mm3 (0.0-0.8) H 05/23/18 05:37 Eos # 0.1 K/mm3 (0.0-0.4) 05/23/18 05:37 Baso # 0.0 K/mm3 (0.0-0.1) 05/23/18 05:37 Add Manual Diff Complete 05/16/18 08:17 Total Counted 100 05/16/18 08:17 Seg Neutrophils % 64.4 % (40.0-70.0) 05/23/18 05:37 Seg Neuts % (Manual) 88.0 % (40.0-70.0) H 05/16/18 08:17 Band Neutrophils % 0 % 05/16/18 08:17 Lymphocytes % (Manual) 6.0 % (13.4-35.0) L 05/16/18 08:17 Reactive Lymphs % (Man) 0 % 05/16/18 08:17 Monocytes % (Manual) 6.0 % (0.0-7.3) 05/16/18 08:17 Eosinophils % (Manual) 0 % (0.0-4.3) 05/16/18 08:17 Basophils % (Manual) 0 % (0.0-1.8) 05/16/18 08:17 Metamyelocytes % 0 % 05/16/18 08:17 Myelocytes % 0 % 05/16/18 08:17 Promyelocytes % 0 % 05/16/18 08:17 Blast Cells % 0 % 05/16/18 08:17 Nucleated RBC % Not Reportable 05/16/18 08:17 Seg Neutrophils # 5.1 K/mm3 (1.8-7.7) 05/23/18 05:37 Seg Neutrophils # Man 16.3 K/mm3 (1.8-7.7) H 05/16/18 08:17 Band Neutrophils # 0.0 K/mm3 05/16/18 08:17 Lymphocytes # (Manual) 1.1 K/mm3 (1.2-5.4) L 05/16/18 08:17 Abs React Lymphs (Man) 0.0 K/mm3 05/16/18 08:17 Monocytes # (Manual) 1.1 K/mm3 (0.0-0.8) H 05/16/18 08:17 Eosinophils # (Manual) 0.0 K/mm3 (0.0-0.4) 05/16/18 08:17 Basophils # (Manual) 0.0 K/mm3 (0.0-0.1) 05/16/18 08:17 Metamyelocytes # 0.0 K/mm3 05/16/18 08:17 Myelocytes # 0.0 K/mm3 05/16/18 08:17 Promyelocytes # 0.0 K/mm3 05/16/18 08:17 Blast Cells # 0.0 K/mm3 05/16/18 08:17 WBC Morphology Not Reportable 05/16/18 08:17 Hypersegmented Neuts Not Reportable 05/16/18 08:17 Hyposegmented Neuts Not Reportable 05/16/18 08:17 Hypogranular Neuts Not Reportable 05/16/18 08:17 Smudge Cells Not Reportable 05/16/18 08:17 Toxic Granulation Not Reportable 05/16/18 08:17 Toxic Vacuolation Not Reportable 05/16/18 08:17 Dohle Bodies Not Reportable 05/16/18 08:17 Pelger-Huet Anomaly Not Reportable 05/16/18 08:17 Celio Rods Not Reportable 05/16/18 08:17 Platelet Estimate Consistent w auto 05/16/18 08:17 Clumped Platelets Not Reportable 05/16/18 08:17 Plt Clumps, EDTA Not Reportable 05/16/18 08:17 Large Platelets Not Reportable 05/16/18 08:17 Giant Platelets Not Reportable 05/16/18 08:17 Platelet Satelliting Not Reportable 05/16/18 08:17 Plt Morphology Comment Not Reportable 05/16/18 08:17 RBC Morphology Normal 05/16/18 08:17 Dimorphic RBCs Not Reportable 05/16/18 08:17 Polychromasia Not Reportable 05/16/18 08:17 Hypochromasia Not Reportable 05/16/18 08:17 Poikilocytosis Not Reportable 05/16/18 08:17 Anisocytosis Not Reportable 05/16/18 08:17 Microcytosis Not Reportable 05/16/18 08:17 Macrocytosis Not Reportable 05/16/18 08:17 Spherocytes Not Reportable 05/16/18 08:17 Pappenheimer Bodies Not Reportable 05/16/18 08:17 Sickle Cells Not Reportable 05/16/18 08:17 Target Cells Not Reportable 05/16/18 08:17 Tear Drop Cells Not Reportable 05/16/18 08:17 Ovalocytes Not Reportable 05/16/18 08:17 Helmet Cells Not Reportable 05/16/18 08:17 [place] Bodies Not Reportable 05/16/18 08:17 [place] Rings Not Reportable 05/16/18 08:17 [place] Cells Not Reportable 05/16/18 08:17 Bite Cells Not Reportable 05/16/18 08:17 Crenated Cell Not Reportable 05/16/18 08:17 Elliptocytes Not Reportable 05/16/18 08:17 Acanthocytes (Spur) Not Reportable 05/16/18 08:17 Rouleaux Not Reportable 05/16/18 08:17 Hemoglobin C Crystals Not Reportable 05/16/18 08:17 Schistocytes Not Reportable 05/16/18 08:17 Malaria parasites Not Reportable 05/16/18 08:17 Rajat Bodies Not Reportable 05/16/18 08:17 Hem Pathologist Commnt No 05/16/18 08:17 PT 13.6 Sec. (12.2-14.9) 05/16/18 08:17 INR 0.99 (0.87-1.13) 05/16/18 08:17 APTT 23.2 Sec. (24.2-36.6) L 05/16/18 08:17 Sodium 143 mmol/L (137-145) 05/23/18 05:37 Potassium 3.9 mmol/L (3.6-5.0) 05/23/18 05:37 Chloride 105.3 mmol/L (98-107) 05/23/18 05:37 Carbon Dioxide 24 mmol/L (22-30) 05/23/18 05:37 Anion Gap 18 mmol/L 05/23/18 05:37 BUN 7 mg/dL (9-20) L 05/23/18 05:37 Creatinine 0.7 mg/dL (0.8-1.5) L 05/23/18 05:37 Estimated GFR > 60 ml/min 05/23/18 05:37 BUN/Creatinine Ratio 10 % 05/23/18 05:37 Glucose 89 mg/dL (75-100) 05/23/18 05:37 POC Glucose 90 (70-105) 05/16/18 07:37 Lactic Acid 0.60 mmol/L (0.7-2.0) L 05/16/18 23:00 Calcium 8.6 mg/dL (8.4-10.2) 05/23/18 05:37 Magnesium 2.20 mg/dL (1.7-2.3) 05/16/18 08:17 Total Bilirubin 0.70 mg/dL (0.1-1.2) 05/23/18 05:37 Direct Bilirubin < 0.2 mg/dL (0-0.2) 05/23/18 05:37 Indirect Bilirubin 0.5 mg/dL 05/23/18 05:37 AST 46 units/L (5-40) H 05/23/18 05:37 ALT 32 units/L (7-56) 05/23/18 05:37 Alkaline Phosphatase 58 units/L (35-129) 05/23/18 05:37 Ammonia 40.0 umol/L (25-60) 05/19/18 13:34 Total Creatine Kinase 1700 units/L (55-170) H 05/23/18 05:37 CK-MB (CK-2) 15.4 ng/mL (0.0-4.0) H 05/16/18 08:17 CK-MB (CK-2) Rel Index 0.9 (0-4) 05/16/18 08:17 Troponin T < 0.010 ng/mL (0.00-0.029) 05/16/18 08:17 NT-Pro-B Natriuret Pep 237.7 pg/mL (0-450) 05/16/18 08:17 Total Protein 6.2 g/dL (6.3-8.2) L 05/23/18 05:37 Albumin 3.9 g/dL (3.9-5) 05/23/18 05:37 Albumin/Globulin Ratio 1.7 % 05/23/18 05:37 TSH 2.690 mlU/mL (0.270-4.200) 05/16/18 08:17 Urine Color Yellow (Yellow) 05/16/18 10:21 Urine Turbidity Clear (Clear) 05/16/18 10:21 Urine pH 5.0 (5.0-7.0) 05/16/18 10:21 Ur Specific [place] 1.018 (1.003-1.030) 05/16/18 10:21 Urine Protein 100 mg/dl mg/dL (Negative) 05/16/18 10:21 Urine Glucose (UA) Neg mg/dL (Negative) 05/16/18 10:21 Urine Ketones 20 mg/dL (Negative) 05/16/18 10:21 Urine Blood Mod (Negative) 05/16/18 10:21 Urine Nitrite Neg (Negative) 05/16/18 10:21 Urine Bilirubin Neg (Negative) 05/16/18 10:21 Urine Urobilinogen < 2.0 mg/dL (<2.0) 05/16/18 10:21 Ur Leukocyte Esterase Neg (Negative) 05/16/18 10:21 Urine WBC (Auto) 1.0 /HPF (0.0-6.0) 05/16/18 10:21 Urine RBC (Auto) 2.0 /HPF (0.0-6.0) 05/16/18 10:21 U Epithel Cells (Auto) < 1.0 /HPF (0-13.0) 05/16/18 10:21 Urine Mucus Few /HPF 05/16/18 10:21 CSF Appearance Clear 05/16/18 Unknown CSF Color Colorless 05/16/18 Unknown CSF WBC 1 /mm3 (1-10) 05/16/18 Unknown CSF RBC 1 /mm3 (0-0) 05/16/18 Unknown CSF Seg Neutrophils 3.0 % (0-6) 05/16/18 Unknown CSF Lymphocytes % 18.0 % (40-80) 05/16/18 Unknown CSF Reactive Lymphs Not Reportable 05/16/18 Unknown CSF Monocytes % 79.0 % (15-45) 05/16/18 Unknown CSF Eosinophils % Not Reportable 05/16/18 Unknown CSF Basophils Not Reportable 05/16/18 Unknown CSF Pathologist Review C 05/16/18 Unknown CSF Glucose 77 mg/dL 05/16/18 Unknown CSF Total Protein 34 mg/dL 05/16/18 Unknown CSF VDRL Nonreactive (Nonreactive) 05/16/18 Unknown Salicylates < 0.3 mg/dL (2.8-20.0) L 05/16/18 08:17 Urine Opiates Screen Presumptive negative 05/16/18 10:21 Urine Methadone Screen Presumptive negative 05/16/18 10:21 Acetaminophen < 5.0 ug/mL (10.0-30.0) L 05/16/18 08:17 Ur Barbiturates Screen Presumptive negative 05/16/18 10:21 Ur Phencyclidine Scrn Presumptive negative 05/16/18 10:21 Ur Amphetamines Screen Presumptive negative 05/16/18 10:21 U Benzodiazepines Scrn Presumptive positive 05/16/18 10:21 Urine Cocaine Screen Presumptive negative 05/16/18 10:21 U Marijuana (THC) Screen Presumptive negative 05/16/18 10:21 Drugs of Abuse Note Disclamer 05/16/18 10:21 Plasma/Serum Alcohol < 0.01 % (0-0.07) 05/16/18 08:17 Blood Type B POSITIVE 05/16/18 11:19 Antibody Screen Negative 05/16/18 11:19
[2018-05-23] MEDS: LOVENOX SUB-Q SCH (21:27)
[2018-05-23] MEDS: COGENTIN PO SCH (21:29)
[2018-05-24] MEDS: NACL 0.9% 1000 ML 1,000 ML IV SCH ×2 (04:25→09:56)
[2018-05-24] MEDS: ATIVAN IV PRN ×4 (05:30→23:45)
--- NOTE | 2018-05-24 08:10 | Progress Note ---
Assessment and Plan Assessment and plan: --Acute psychosis; possible bipolar/schizophrenia Psych following, continue psych medications --Rhabdomyolysis; CK levels trending down 1808 -[id number] Preserved renal function, Aggressive IV hydration, IV Lasix, input output monitoring, closely monitor Patient is a strong adult male,in restraints, may be contributing to his Worsening rhabdomyolysis --Hypertensive urgency; significant improvement Continue current antihypertensives and When necessary medications --Acute Metabolic Encephalopathy; off and on Multifactorial, secondary to psychosis, medication Closely monitor --Status post lumbar puncture. Meningitis ruled out --History of hazing many years ago; --Hyperammonemia; present on admission Resolved --Lactic acidosis; resolved --DVT prophylaxis; Lovenox --1013 status Possible transfer to inpatient psych facility when medically stable Plan of care is reviewed. The patient's parents and his nurse History Interval history: Patient seen and examined this morning in his room , medical records reviewed educational aide and the mother is at the bedside Patient is calm and quiet, restrained for safety Continues to have high CK today 1367 Patient is comfortable, responding to simple questions, Vital signs reviewed confused and paranoid at times Hospitalist Physical - Constitutional Vitals: Temp Pulse Resp BP Pulse Ox 98.3 F 86 20 150/100 96 05/24/18 06:00 05/24/18 06:00 05/24/18 06:00 05/24/18 06:00 05/24/18 06:00 General appearance: Present: no acute distress, well-nourished, other ( restrained for safety) - EENT Eyes: Present: PERRL, EOM intact - Neck Neck: Present: supple, normal ROM - Respiratory Respiratory effort: normal Respiratory: negative: rales, rhonchi, wheezing - Cardiovascular Rhythm: regular Heart Sounds: Present: S1 & S2 - Extremities Extremities: no ischemia, No edema - Abdominal General gastrointestinal: soft, non-tender, normal bowel sounds - Integumentary Integumentary: Present: clear, warm - Psychiatric Psychiatric: appropriate mood/affect, agitated - Neurologic Neurologic: CNII-XII intact, moves all extremities Results - Labs CBC & Chem 7: 05/23/18 05:37 05/24/18 09:32 Labs: Laboratory Last Values WBC 8.0 K/mm3 (4.5-11.0) 05/23/18 05:37 RBC 4.58 M/mm3 (3.65-5.03) 05/23/18 05:37 Hgb 13.7 gm/dl (11.8-15.2) 05/23/18 05:37 Hct 41.5 % (35.5-45.6) 05/23/18 05:37 MCV 91 fl (84-94) 05/23/18 05:37 MCH 30 pg (28-32) 05/23/18 05:37 MCHC 33 % (32-34) 05/23/18 05:37 RDW 14.1 % (13.2-15.2) 05/23/18 05:37 Plt Count 205 K/mm3 (140-440) 05/23/18 05:37 Lymph % (Auto) 21.7 % (13.4-35.0) 05/23/18 05:37 [place] % (Auto) 11.5 % (0.0-7.3) H 05/23/18 05:37 Eos % (Auto) 1.8 % (0.0-4.3) 05/23/18 05:37 Baso % (Auto) 0.6 % (0.0-1.8) 05/23/18 05:37 Lymph # 1.7 K/mm3 (1.2-5.4) 05/23/18 05:37 [place] # 0.9 K/mm3 (0.0-0.8) H 05/23/18 05:37 Eos # 0.1 K/mm3 (0.0-0.4) 05/23/18 05:37 Baso # 0.0 K/mm3 (0.0-0.1) 05/23/18 05:37 Add Manual Diff Complete 05/16/18 08:17 Total Counted 100 05/16/18 08:17 Seg Neutrophils % 64.4 % (40.0-70.0) 05/23/18 05:37 Seg Neuts % (Manual) 88.0 % (40.0-70.0) H 05/16/18 08:17 Band Neutrophils % 0 % 05/16/18 08:17 Lymphocytes % (Manual) 6.0 % (13.4-35.0) L 05/16/18 08:17 Reactive Lymphs % (Man) 0 % 05/16/18 08:17 Monocytes % (Manual) 6.0 % (0.0-7.3) 05/16/18 08:17 Eosinophils % (Manual) 0 % (0.0-4.3) 05/16/18 08:17 Basophils % (Manual) 0 % (0.0-1.8) 05/16/18 08:17 Metamyelocytes % 0 % 05/16/18 08:17 Myelocytes % 0 % 05/16/18 08:17 Promyelocytes % 0 % 05/16/18 08:17 Blast Cells % 0 % 05/16/18 08:17 Nucleated RBC % Not Reportable 05/16/18 08:17 Seg Neutrophils # 5.1 K/mm3 (1.8-7.7) 05/23/18 05:37 Seg Neutrophils # Man 16.3 K/mm3 (1.8-7.7) H 05/16/18 08:17 Band Neutrophils # 0.0 K/mm3 05/16/18 08:17 Lymphocytes # (Manual) 1.1 K/mm3 (1.2-5.4) L 05/16/18 08:17 Abs React Lymphs (Man) 0.0 K/mm3 05/16/18 08:17 Monocytes # (Manual) 1.1 K/mm3 (0.0-0.8) H 05/16/18 08:17 Eosinophils # (Manual) 0.0 K/mm3 (0.0-0.4) 05/16/18 08:17 Basophils # (Manual) 0.0 K/mm3 (0.0-0.1) 05/16/18 08:17 Metamyelocytes # 0.0 K/mm3 05/16/18 08:17 Myelocytes # 0.0 K/mm3 05/16/18 08:17 Promyelocytes # 0.0 K/mm3 05/16/18 08:17 Blast Cells # 0.0 K/mm3 05/16/18 08:17 WBC Morphology Not Reportable 05/16/18 08:17 Hypersegmented Neuts Not Reportable 05/16/18 08:17 Hyposegmented Neuts Not Reportable 05/16/18 08:17 Hypogranular Neuts Not Reportable 05/16/18 08:17 Smudge Cells Not Reportable 05/16/18 08:17 Toxic Granulation Not Reportable 05/16/18 08:17 Toxic Vacuolation Not Reportable 05/16/18 08:17 Dohle Bodies Not Reportable 05/16/18 08:17 Pelger-Huet Anomaly Not Reportable 05/16/18 08:17 Celio Rods Not Reportable 05/16/18 08:17 Platelet Estimate Consistent w auto 05/16/18 08:17 Clumped Platelets Not Reportable 05/16/18 08:17 Plt Clumps, EDTA Not Reportable 05/16/18 08:17 Large Platelets Not Reportable 05/16/18 08:17 Giant Platelets Not Reportable 05/16/18 08:17 Platelet Satelliting Not Reportable 05/16/18 08:17 Plt Morphology Comment Not Reportable 05/16/18 08:17 RBC Morphology Normal 05/16/18 08:17 Dimorphic RBCs Not Reportable 05/16/18 08:17 Polychromasia Not Reportable 05/16/18 08:17 Hypochromasia Not Reportable 05/16/18 08:17 Poikilocytosis Not Reportable 05/16/18 08:17 Anisocytosis Not Reportable 05/16/18 08:17 Microcytosis Not Reportable 05/16/18 08:17 Macrocytosis Not Reportable 05/16/18 08:17 Spherocytes Not Reportable 05/16/18 08:17 Pappenheimer Bodies Not Reportable 05/16/18 08:17 Sickle Cells Not Reportable 05/16/18 08:17 Target Cells Not Reportable 05/16/18 08:17 Tear Drop Cells Not Reportable 05/16/18 08:17 Ovalocytes Not Reportable 05/16/18 08:17 Helmet Cells Not Reportable 05/16/18 08:17 [place] Bodies Not Reportable 05/16/18 08:17 [place] Rings Not Reportable 05/16/18 08:17 [place] Cells Not Reportable 05/16/18 08:17 Bite Cells Not Reportable 05/16/18 08:17 Crenated Cell Not Reportable 05/16/18 08:17 Elliptocytes Not Reportable 05/16/18 08:17 Acanthocytes (Spur) Not Reportable 05/16/18 08:17 Rouleaux Not Reportable 05/16/18 08:17 Hemoglobin C Crystals Not Reportable 05/16/18 08:17 Schistocytes Not Reportable 05/16/18 08:17 Malaria parasites Not Reportable 05/16/18 08:17 Rajat Bodies Not Reportable 05/16/18 08:17 Hem Pathologist Commnt No 05/16/18 08:17 PT 13.6 Sec. (12.2-14.9) 05/16/18 08:17 INR 0.99 (0.87-1.13) 05/16/18 08:17 APTT 23.2 Sec. (24.2-36.6) L 05/16/18 08:17 Sodium 143 mmol/L (137-145) 05/23/18 05:37 Potassium 3.9 mmol/L (3.6-5.0) 05/23/18 05:37 Chloride 105.3 mmol/L (98-107) 05/23/18 05:37 Carbon Dioxide 24 mmol/L (22-30) 05/23/18 05:37 Anion Gap 18 mmol/L 05/23/18 05:37 BUN 7 mg/dL (9-20) L 05/23/18 05:37 Creatinine 0.7 mg/dL (0.8-1.5) L 05/23/18 05:37 Estimated GFR > 60 ml/min 05/23/18 05:37 BUN/Creatinine Ratio 10 % 05/23/18 05:37 Glucose 89 mg/dL (75-100) 05/23/18 05:37 POC Glucose 90 (70-105) 05/16/18 07:37 Lactic Acid 0.60 mmol/L (0.7-2.0) L 05/16/18 23:00 Calcium 8.6 mg/dL (8.4-10.2) 05/23/18 05:37 Magnesium 2.20 mg/dL (1.7-2.3) 05/16/18 08:17 Total Bilirubin 0.70 mg/dL (0.1-1.2) 05/23/18 05:37 Direct Bilirubin < 0.2 mg/dL (0-0.2) 05/23/18 05:37 Indirect Bilirubin 0.5 mg/dL 05/23/18 05:37 AST 46 units/L (5-40) H 05/23/18 05:37 ALT 32 units/L (7-56) 05/23/18 05:37 Alkaline Phosphatase 58 units/L (35-129) 05/23/18 05:37 Ammonia 40.0 umol/L (25-60) 05/19/18 13:34 Total Creatine Kinase 1700 units/L (55-170) H 05/23/18 05:37 CK-MB (CK-2) 15.4 ng/mL (0.0-4.0) H 05/16/18 08:17 CK-MB (CK-2) Rel Index 0.9 (0-4) 05/16/18 08:17 Troponin T < 0.010 ng/mL (0.00-0.029) 05/16/18 08:17 NT-Pro-B Natriuret Pep 237.7 pg/mL (0-450) 05/16/18 08:17 Total Protein 6.2 g/dL (6.3-8.2) L 05/23/18 05:37 Albumin 3.9 g/dL (3.9-5) 05/23/18 05:37 Albumin/Globulin Ratio 1.7 % 05/23/18 05:37 TSH 2.690 mlU/mL (0.270-4.200) 05/16/18 08:17 Urine Color Yellow (Yellow) 05/16/18 10:21 Urine Turbidity Clear (Clear) 05/16/18 10:21 Urine pH 5.0 (5.0-7.0) 05/16/18 10:21 Ur Specific [place] 1.018 (1.003-1.030) 05/16/18 10:21 Urine Protein 100 mg/dl mg/dL (Negative) 05/16/18 10:21 Urine Glucose (UA) Neg mg/dL (Negative) 05/16/18 10:21 Urine Ketones 20 mg/dL (Negative) 05/16/18 10:21 Urine Blood Mod (Negative) 05/16/18 10:21 Urine Nitrite Neg (Negative) 05/16/18 10:21 Urine Bilirubin Neg (Negative) 05/16/18 10:21 Urine Urobilinogen < 2.0 mg/dL (<2.0) 05/16/18 10:21 Ur Leukocyte Esterase Neg (Negative) 05/16/18 10:21 Urine WBC (Auto) 1.0 /HPF (0.0-6.0) 05/16/18 10:21 Urine RBC (Auto) 2.0 /HPF (0.0-6.0) 05/16/18 10:21 U Epithel Cells (Auto) < 1.0 /HPF (0-13.0) 05/16/18 10:21 Urine Mucus Few /HPF 05/16/18 10:21 CSF Appearance Clear 05/16/18 Unknown CSF Color Colorless 05/16/18 Unknown CSF WBC 1 /mm3 (1-10) 05/16/18 Unknown CSF RBC 1 /mm3 (0-0) 05/16/18 Unknown CSF Seg Neutrophils 3.0 % (0-6) 05/16/18 Unknown CSF Lymphocytes % 18.0 % (40-80) 05/16/18 Unknown CSF Reactive Lymphs Not Reportable 05/16/18 Unknown CSF Monocytes % 79.0 % (15-45) 05/16/18 Unknown CSF Eosinophils % Not Reportable 05/16/18 Unknown CSF Basophils Not Reportable 05/16/18 Unknown CSF Pathologist Review C 05/16/18 Unknown CSF Glucose 77 mg/dL 05/16/18 Unknown CSF Total Protein 34 mg/dL 05/16/18 Unknown CSF VDRL Nonreactive (Nonreactive) 05/16/18 Unknown Salicylates < 0.3 mg/dL (2.8-20.0) L 05/16/18 08:17 Urine Opiates Screen Presumptive negative 05/16/18 10:21 Urine Methadone Screen Presumptive negative 05/16/18 10:21 Acetaminophen < 5.0 ug/mL (10.0-30.0) L 05/16/18 08:17 Ur Barbiturates Screen Presumptive negative 05/16/18 10:21 Ur Phencyclidine Scrn Presumptive negative 05/16/18 10:21 Ur Amphetamines Screen Presumptive negative 05/16/18 10:21 U Benzodiazepines Scrn Presumptive positive 05/16/18 10:21 Urine Cocaine Screen Presumptive negative 05/16/18 10:21 U Marijuana (THC) Screen Presumptive negative 05/16/18 10:21 Drugs of Abuse Note Disclamer 05/16/18 10:21 Plasma/Serum Alcohol < 0.01 % (0-0.07) 05/16/18 08:17 Blood Type B POSITIVE 05/16/18 11:19 Antibody Screen Negative 05/16/18 11:19
[2018-05-24] MEDS: LASIX IV SCH ×2 (08:29→18:02)
[2018-05-24] MEDS: CATAPRES PO SCH ×3 (08:29→23:23)
[2018-05-24] MEDS: APRESOLINE PO SCH ×3 (08:30→23:23)
[2018-05-24] MEDS: TENORMIN PO SCH (09:40)
[2018-05-24] MEDS: SODIUM CHLORIDE FLUSH SYRINGE 10 ML IV SCH (09:57)
[2018-05-24 10:22] LABS: BUN/Creatinine Ratio 10; Blood Urea Nitrogen 8 mg/dL (9-20); Calcium 9.3 mg/dL (8.4-10.2); Hemolysis Index 6
--- NOTE | 2018-05-24 13:30 | Progress Note ---
Assessment and Plan Hypertensive urgency Rhabdomyolysis Acute encephalopathy Acute psychosis Leukocytosis, LP negative Polysubstance abuse disorder Obesity Low lung volumes h/o Bipolar disorder - continue blood pressure control with clonidine and atenolol (much improved) - MRI of the brain negative - SIRS improved - Continue psychiatry evaluation - S/P lumbar puncture and negative (toxic metabolic component of encephalopathy resolving) - continue incentive spirometry and deep breathing exercises - Life style modification and weight loss counselled prior - continue nicotine withdrawal precautions - continue alcohol withdrawal precautions - continue CIWA protocol - continue VTE prophyalxis - added GI prophylaxis - Neurology consult if indicated based on MRI results - Discontinued antibiotics and following clinically off antibiotics - Follow cpK trend - lactic acidosis resolved - continue psychoactive meds (adjust per psychiatrist) - remains a 1013 status ... re-evaluate in am & prn .. 25' Subjective Date of service: 05/24/18 Principal diagnosis: metabolic encephalopathy, hypertensive urgency, acute psychosis, SIRS Interval history: Patient is seen today for: Acute Metabolic Encephalopathy; hypertensive urgency ; SIRS Seen and examined at bedside; 24hour events reviewed; nursing and respiratory care staff consulted; no adverse overnight events reported to me; resting in bed ; agitated earlier and continues to need sitter; denies chest pains; BP's better controlled; No N/V/F/C Objective Vital Signs - 12hr 05/24/18 05/24/18 05/24/18 06:00 08:29 08:30 Temperature 98.3 F Pulse Rate 86 86 86 Respiratory 20 Rate Blood Pressure 150/100 150/100 Blood Pressure 150/100 [Right] O2 Sat by Pulse 96 Oximetry 05/24/18 05/24/18 05/24/18 09:24 09:40 13:06 Temperature 98.1 F 98.2 F Pulse Rate 84 82 74 Respiratory 18 20 Rate Blood Pressure 140/90 140/90 156/107 Blood Pressure [Right] O2 Sat by Pulse 95 99 Oximetry Constitutional: no acute distress, asleep Eyes: non-icteric ENT: oropharynx moist, other (mallampatti 2) Neck: supple, no lymphadenopathy, no JVD Effort: normal Ascultation: Bilateral: clear, rhonchi Percussion: Bilateral: not dull Cardiovascular: regular rate and rhythm, other (No R/M) Gastrointestinal: normoactive bowel sounds, soft, non-tender, non-distended, other (No HSM) Integumentary: normal Extremities: no cyanosis, no edema, pink and warm, pulses normal, no ischemia or petechiae Neurologic: normal mental status, non-focal exam, pupils equal and round, CN II- XII normal, motor strength normal and Psychiatric: anxious, other (pressured; tangential thoughts) CBC and BMP: 05/23/18 05:37 05/25/18 08:56 ABG, PT/INR, D-dimer: PT/INR, D-dimer PT 13.6 Sec. (12.2-14.9) 05/16/18 08:17 INR 0.99 (0.87-1.13) 05/16/18 08:17 Abnormal lab findings: Abnormal Labs 05/16/18 05/16/18 05/16/18 08:17 08:17 08:17 WBC 18.5 H RBC 5.22 H Hct 46.2 H [place] % (Auto) [place] # Seg Neutrophils % Seg Neuts % (Manual) 88.0 H Lymphocytes % (Manual) 6.0 L Seg Neutrophils # Man 16.3 H Lymphocytes # (Manual) 1.1 L Monocytes # (Manual) 1.1 H APTT Potassium 3.4 L Chloride 94.3 L Carbon Dioxide 17 L BUN Creatinine Glucose 137 H Lactic Acid 8.60 H* AST 47 H Ammonia Total Creatine Kinase CK-MB (CK-2) Total Protein Salicylates Acetaminophen 05/16/18 05/16/18 05/16/18 08:17 08:17 08:17 WBC RBC Hct [place] % (Auto) [place] # Seg Neutrophils % Seg Neuts % (Manual) Lymphocytes % (Manual) Seg Neutrophils # Man Lymphocytes # (Manual) Monocytes # (Manual) APTT 23.2 L Potassium Chloride Carbon Dioxide BUN Creatinine Glucose Lactic Acid AST Ammonia 96.0 H Total Creatine Kinase 1691 H CK-MB (CK-2) 15.4 H Total Protein Salicylates Acetaminophen 05/16/18 05/16/18 05/16/18 08:17 08:17 11:19 WBC RBC Hct [place] % (Auto) [place] # Seg Neutrophils % Seg Neuts % (Manual) Lymphocytes % (Manual) Seg Neutrophils # Man Lymphocytes # (Manual) Monocytes # (Manual) APTT Potassium Chloride Carbon Dioxide 21 L BUN Creatinine 0.7 L Glucose Lactic Acid AST 50 H Ammonia Total Creatine Kinase CK-MB (CK-2) Total Protein Salicylates < 0.3 L Acetaminophen < 5.0 L 05/16/18 05/16/18 05/17/18 13:37 23:00 04:17 WBC 12.0 H RBC Hct [place] % (Auto) [place] # Seg Neutrophils % Seg Neuts % (Manual) Lymphocytes % (Manual) Seg Neutrophils # Man Lymphocytes # (Manual) Monocytes # (Manual) APTT Potassium Chloride Carbon Dioxide BUN Creatinine Glucose Lactic Acid 0.60 L AST Ammonia Total Creatine Kinase 2794 H CK-MB (CK-2) Total Protein Salicylates Acetaminophen 05/17/18 05/18/18 05/19/18 04:17 03:57 13:34 WBC RBC Hct [place] % (Auto) [place] # Seg Neutrophils % Seg Neuts % (Manual) Lymphocytes % (Manual) Seg Neutrophils # Man Lymphocytes # (Manual) Monocytes # (Manual) APTT Potassium Chloride Carbon Dioxide 21 L BUN 6 L Creatinine 0.7 L 0.6 L Glucose 62 L Lactic Acid AST Ammonia Total Creatine Kinase 3668 H 2654 H 1108 H CK-MB (CK-2) Total Protein Salicylates Acetaminophen 05/21/18 05/22/18 05/22/18 06:42 05:16 05:16 WBC RBC Hct [place] % (Auto) 9.3 H [place] # 1.0 H Seg Neutrophils % 72.8 H Seg Neuts % (Manual) Lymphocytes % (Manual) Seg Neutrophils # Man Lymphocytes # (Manual) Monocytes # (Manual) APTT Potassium Chloride Carbon Dioxide BUN 6 L Creatinine 0.7 L Glucose Lactic Acid AST Ammonia Total Creatine Kinase 2424 H 1808 H CK-MB (CK-2) Total Protein Salicylates Acetaminophen 05/23/18 05/23/18 05/24/18 05:37 05:37 09:32 WBC RBC Hct [place] % (Auto) 11.5 H [place] # 0.9 H Seg Neutrophils % Seg Neuts % (Manual) Lymphocytes % (Manual) Seg Neutrophils # Man Lymphocytes # (Manual) Monocytes # (Manual) APTT Potassium 3.3 L Chloride Carbon Dioxide BUN 7 L 8 L Creatinine 0.7 L Glucose 128 H Lactic Acid AST 46 H Ammonia Total Creatine Kinase 1700 H 1367 H CK-MB (CK-2) Total Protein 6.2 L Salicylates Acetaminophen Allied health notes reviewed: nursing
[2018-05-24] MEDS: APRESOLINE IV PRN (13:58)
--- NOTE | 2018-05-24 19:04 | Progress Note ---
Subjective - Reason for Consult Consult date: 05/24/18 Reason for consult: follow up - Chief Complaint Chief complaint: "I am not sure if I'm getting better" 32 y.o. AA male presenting to the ER for AMS. Psychiatry follow up today. He is frustrated and suspicious today. Per collateral information from his parents. CK is elevated but trending down to 1367 from 1700 yesterday. He is not in restraints. He is ambulatory but frustrated about not being able to get out of bed. He is also frustrated about his IV infiltrating. Patient and parents are concerned the thorazine worsened his symptoms. He is reported to have episodes in which he is confused, reaching for objects not there, and is scared followed by agitation when confronted by staff. Last night, he told staff he did not feel safe and was holding his mother tight. Security became involved and he was given ativan IV. He was able to voice his complaints, but he did require redirection. Mental Status Exam - Vital signs Last Vital Signs Temp 98.2 F 05/24/18 13:06 Pulse 72 05/24/18 14:02 Resp 20 05/24/18 13:06 BP 156/107 05/24/18 14:02 Pulse Ox 99 05/24/18 13:06 - Exam Narrative exam: MSE: Appearance: calm Behavior: regular eye contact Speech: regular rate and tone Mood: apprehensive, guarded Affect: flat Thought Process: circumstantial Thought Content: denies SI/HI/AVH. paranoid ideations. He was reaching for something in front of him last night. possible visual hallucinations Motor Activity: ambulatory Cognition: A/O x 3 Insight: poor Judgment: poor Assessment and Plan Impression: Unspecified Psychosis. R/O Alcohol Use DO. Insomnia. Today the patient is calm and cooperative during the assessment. CK is elevated but trending down to 1367 from 1700 yesterday. He is not in restraints. He is ambulatory but frustrated about not being able to get out of bed. He is also frustrated about his IV infiltrating. DDx: Bipolar DO, R/O Schizophrenia Medical: Acute Metabolic Encephalopathy on admission Recommendation/Plan: Once medically cleared, reevaluate for psychotic symptoms. Continue Seroquel to 300 mg PO HS for psychosis. Continue Cogentin 0.5 mg PO HS for EPS prevention. Klonopin 0.5 mg PO BID for anxiety. Patient and parents are concerned the thorazine worsened his symptoms. Thorazine was discontinued. Continue medical treatment per the medical team. Recommend Delirium precautions below: 1. Frequently reorient patient and involve him/her in their care (simple explanations of procedures, tests, medications). 2. Lights on and shades open during daytime hours. 3. Write date and goals of care in a visible place. 4. Try to avoid unnecessary interruptions to sleep during nighttime hours. 5. Obtain glasses, hearing aids from home if patient uses these at baseline. 6. Avoid medications that may exacerbate delirium (especially narcotics, benzodiazepines (avoid high/repeated doses), barbiturates, ambien, lunesta, and medications with excessive anticholinergic properties). 7. Discontinue restraints when no longer needed.
[2018-05-24] MEDS: COGENTIN PO SCH (23:25)
[2018-05-24] MEDS: LOVENOX SUB-Q SCH (23:36)
[2018-05-25] MEDS: ATIVAN IV PRN ×2 (05:38→13:35)
[2018-05-25] MEDS: LASIX IV SCH ×2 (06:35→18:55)
[2018-05-25 09:51] LABS: BUN/Creatinine Ratio 11; Blood Urea Nitrogen 9 mg/dL (9-20); Calcium 9.1 mg/dL (8.4-10.2); Hemolysis Index 4
[2018-05-25] MEDS: TENORMIN PO SCH (10:41)
--- NOTE | 2018-05-25 13:22 | Progress Note ---
Assessment and Plan Hypertensive urgency Rhabdomyolysis Acute encephalopathy Acute psychosis Leukocytosis, LP negative Polysubstance abuse disorder Obesity Low lung volumes h/o Bipolar disorder (I am not convinced that the seroquel is responsible for the continued anxiety / agitation. 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) - continue blood pressure control with clonidine and atenolol (much improved) - MRI of the brain negative - SIRS improved - Continue psychiatry evaluation - S/P lumbar puncture and negative (toxic metabolic component of encephalopathy resolving) - continue incentive spirometry and deep breathing exercises - Life style modification and weight loss counselled prior - continue nicotine withdrawal precautions - continue lcohol withdrawal precautions - continue CIWA protocol - continue VTE prophyalxis - continue GI prophylaxis - MRI negative - Discontinued antibiotics and monitor off antibiotics - Follow cpK trend - lactic acidosis resolved - continue psychoactive meds (seroquel added) - remains a 1013 status ... re-evaluate in am & prn .. 25' Subjective Date of service: 05/25/18 Principal diagnosis: metabolic encephalopathy, hypertensive urgency, acute psychosis, SIRS Interval history: Patient is seen today for: Acute Metabolic Encephalopathy; hypertensive urgency ; SIRS Seen and examined at bedside; 24hour events reviewed; nursing and respiratory care staff consulted; no adverse overnight events reported to me; resting in bed ; father in room; states his son has not slept at night over the past 3-4 days; aimee remains anxious; he has been taking cat-naps during the day; he denies generalized pains, dysuria, generalized malaise or any S&S of progressive rhabdomyolysis. Seroquel stopped because of suspected adverse reaction Objective Vital Signs - 12hr 05/25/18 05/25/18 05/25/18 10:29 10:41 12:08 Temperature 98.8 F Pulse Rate 73 Respiratory 20 Rate Blood Pressure 166/104 166/104 152/100 O2 Sat by Pulse 97 Oximetry Constitutional: no acute distress, asleep, other (anxious looking young AAM, normocephalic and atraumatic with mildly increased respiratory effort) Eyes: non-icteric ENT: oropharynx moist, other (mallampatti 2) Neck: supple, no lymphadenopathy, no JVD, other (no thyromegaly) Effort: mildly labored Ascultation: Bilateral: rhonchi (posterior base) Percussion: Bilateral: not dull Cardiovascular: regular rate and rhythm, other (No R/M) Gastrointestinal: normoactive bowel sounds, soft, non-tender, non-distended, other (No HSM) Integumentary: normal Extremities: no cyanosis, no edema, pink and warm, pulses normal, no ischemia or petechiae Neurologic: normal mental status, non-focal exam, pupils equal and round, CN II- XII normal, motor strength normal and Psychiatric: anxious, other (pressured speech; tangential thoughts) CBC and BMP: 05/23/18 05:37 05/25/18 08:56 ABG, PT/INR, D-dimer: PT/INR, D-dimer PT 13.6 Sec. (12.2-14.9) 05/16/18 08:17 INR 0.99 (0.87-1.13) 05/16/18 08:17 Abnormal lab findings: Abnormal Labs 05/16/18 05/16/18 05/16/18 08:17 08:17 08:17 WBC 18.5 H RBC 5.22 H Hct 46.2 H [place] % (Auto) [place] # Seg Neutrophils % Seg Neuts % (Manual) 88.0 H Lymphocytes % (Manual) 6.0 L Seg Neutrophils # Man 16.3 H Lymphocytes # (Manual) 1.1 L Monocytes # (Manual) 1.1 H APTT Potassium 3.4 L Chloride 94.3 L Carbon Dioxide 17 L BUN Creatinine Glucose 137 H Lactic Acid 8.60 H* AST 47 H Ammonia Total Creatine Kinase CK-MB (CK-2) Total Protein Salicylates Acetaminophen 05/16/18 05/16/18 05/16/18 08:17 08:17 08:17 WBC RBC Hct [place] % (Auto) [place] # Seg Neutrophils % Seg Neuts % (Manual) Lymphocytes % (Manual) Seg Neutrophils # Man Lymphocytes # (Manual) Monocytes # (Manual) APTT 23.2 L Potassium Chloride Carbon Dioxide BUN Creatinine Glucose Lactic Acid AST Ammonia 96.0 H Total Creatine Kinase 1691 H CK-MB (CK-2) 15.4 H Total Protein Salicylates Acetaminophen 05/16/18 05/16/18 05/16/18 08:17 08:17 11:19 WBC RBC Hct [place] % (Auto) [place] # Seg Neutrophils % Seg Neuts % (Manual) Lymphocytes % (Manual) Seg Neutrophils # Man Lymphocytes # (Manual) Monocytes # (Manual) APTT Potassium Chloride Carbon Dioxide 21 L BUN Creatinine 0.7 L Glucose Lactic Acid AST 50 H Ammonia Total Creatine Kinase CK-MB (CK-2) Total Protein Salicylates < 0.3 L Acetaminophen < 5.0 L 05/16/18 05/16/18 05/17/18 13:37 23:00 04:17 WBC 12.0 H RBC Hct [place] % (Auto) [place] # Seg Neutrophils % Seg Neuts % (Manual) Lymphocytes % (Manual) Seg Neutrophils # Man Lymphocytes # (Manual) Monocytes # (Manual) APTT Potassium Chloride Carbon Dioxide BUN Creatinine Glucose Lactic Acid 0.60 L AST Ammonia Total Creatine Kinase 2794 H CK-MB (CK-2) Total Protein Salicylates Acetaminophen 05/17/18 05/18/18 05/19/18 04:17 03:57 13:34 WBC RBC Hct [place] % (Auto) [place] # Seg Neutrophils % Seg Neuts % (Manual) Lymphocytes % (Manual) Seg Neutrophils # Man Lymphocytes # (Manual) Monocytes # (Manual) APTT Potassium Chloride Carbon Dioxide 21 L BUN 6 L Creatinine 0.7 L 0.6 L Glucose 62 L Lactic Acid AST Ammonia Total Creatine Kinase 3668 H 2654 H 1108 H CK-MB (CK-2) Total Protein Salicylates Acetaminophen 05/21/18 05/22/18 05/22/18 06:42 05:16 05:16 WBC RBC Hct [place] % (Auto) 9.3 H [place] # 1.0 H Seg Neutrophils % 72.8 H Seg Neuts % (Manual) Lymphocytes % (Manual) Seg Neutrophils # Man Lymphocytes # (Manual) Monocytes # (Manual) APTT Potassium Chloride Carbon Dioxide BUN 6 L Creatinine 0.7 L Glucose Lactic Acid AST Ammonia Total Creatine Kinase 2424 H 1808 H CK-MB (CK-2) Total Protein Salicylates Acetaminophen 05/23/18 05/23/18 05/24/18 05:37 05:37 09:32 WBC RBC Hct [place] % (Auto) 11.5 H [place] # 0.9 H Seg Neutrophils % Seg Neuts % (Manual) Lymphocytes % (Manual) Seg Neutrophils # Man Lymphocytes # (Manual) Monocytes # (Manual) APTT Potassium 3.3 L Chloride Carbon Dioxide BUN 7 L 8 L Creatinine 0.7 L Glucose 128 H Lactic Acid AST 46 H Ammonia Total Creatine Kinase 1700 H 1367 H CK-MB (CK-2) Total Protein 6.2 L Salicylates Acetaminophen 05/25/18 08:56 WBC RBC Hct [place] % (Auto) [place] # Seg Neutrophils % Seg Neuts % (Manual) Lymphocytes % (Manual) Seg Neutrophils # Man Lymphocytes # (Manual) Monocytes # (Manual) APTT Potassium Chloride Carbon Dioxide BUN Creatinine Glucose Lactic Acid AST Ammonia Total Creatine Kinase 736 H CK-MB (CK-2) Total Protein Salicylates Acetaminophen Allied health notes reviewed: nursing
[2018-05-25] MEDS: SODIUM CHLORIDE FLUSH SYRINGE 10 ML IV SCH ×3 (13:42→22:42)
[2018-05-25] MEDS: APRESOLINE PO SCH ×2 (13:50→22:34)
[2018-05-25] MEDS: CATAPRES PO SCH ×2 (13:51→22:35)
--- NOTE | 2018-05-25 15:29 | Progress Note ---
Assessment and Plan Assessment and plan: --Acute psychosis; possible bipolar/schizophrenia Psych following, patient is on Seroquel and Cogentin Klonopin and Ativan Patient could not sleep the whole night, patient and the parents mother and father Feels that the patient is not tolerating the above medications and want to stop them Follow-up with psych recommendations --Rhabdomyolysis; CK levels trending down [id number] Preserved renal function, Aggressive IV hydration, IV Lasix, --Hypertensive urgency; blood pressure is significantly improved --Acute Metabolic Encephalopathy; on admission Now improved parents say back to baseline --Status post lumbar puncture. Meningitis ruled out --History of hazing many years ago; --Hyperammonemia; present on admission Resolved --Lactic acidosis; resolved --DVT prophylaxis; Lovenox --1013 status Possible transfer to inpatient psych facility when medically stable Plan of care is reviewed. The patient's parents and his nurse History Interval history: Patient seen and examined this morning medical records reviewed Patient's father and mother at the bedside, report that patient had a rough night Unable to sleep, the psych medications are making him worse Patient is on Seroquel ,Cogentin ,Klonopin. And Ativan Patient himself reports that he was feeling weird last night Family serious patient could not tolerate Seroquel Cogentin and Klonopin and Ativan Psych following CK levels if clinically improved less than thousand Hospitalist Physical - Constitutional Vitals: Temp Pulse Resp BP Pulse Ox 98.8 F 73 20 152/100 97 05/25/18 12:08 05/25/18 12:08 05/25/18 12:08 05/25/18 13:51 05/25/18 12:08 General appearance: Present: no acute distress, well-nourished, other (infuse at times) - EENT Eyes: Present: PERRL, EOM intact - Neck Neck: Present: supple, normal ROM - Respiratory Respiratory effort: normal Respiratory: bilateral: diminished, rhonchi, wheezing, negative: rales - Cardiovascular Rhythm: regular Heart Sounds: Present: S1 & S2, gallop - Extremities Extremities: no ischemia, No edema Peripheral Pulses: within normal limits - Abdominal General gastrointestinal: soft, non-tender, non-distended, distended - Integumentary Integumentary: Present: clear, warm - Psychiatric Psychiatric: appropriate mood/affect, cooperative - Neurologic Neurologic: CNII-XII intact, moves all extremities Results - Labs CBC & Chem 7: 05/23/18 05:37 05/25/18 08:56 Labs: Laboratory Last Values WBC 8.0 K/mm3 (4.5-11.0) 05/23/18 05:37 RBC 4.58 M/mm3 (3.65-5.03) 05/23/18 05:37 Hgb 13.7 gm/dl (11.8-15.2) 05/23/18 05:37 Hct 41.5 % (35.5-45.6) 05/23/18 05:37 MCV 91 fl (84-94) 05/23/18 05:37 MCH 30 pg (28-32) 05/23/18 05:37 MCHC 33 % (32-34) 05/23/18 05:37 RDW 14.1 % (13.2-15.2) 05/23/18 05:37 Plt Count 205 K/mm3 (140-440) 05/23/18 05:37 Lymph % (Auto) 21.7 % (13.4-35.0) 05/23/18 05:37 [place] % (Auto) 11.5 % (0.0-7.3) H 05/23/18 05:37 Eos % (Auto) 1.8 % (0.0-4.3) 05/23/18 05:37 Baso % (Auto) 0.6 % (0.0-1.8) 05/23/18 05:37 Lymph # 1.7 K/mm3 (1.2-5.4) 05/23/18 05:37 [place] # 0.9 K/mm3 (0.0-0.8) H 05/23/18 05:37 Eos # 0.1 K/mm3 (0.0-0.4) 05/23/18 05:37 Baso # 0.0 K/mm3 (0.0-0.1) 05/23/18 05:37 Add Manual Diff Complete 05/16/18 08:17 Total Counted 100 05/16/18 08:17 Seg Neutrophils % 64.4 % (40.0-70.0) 05/23/18 05:37 Seg Neuts % (Manual) 88.0 % (40.0-70.0) H 05/16/18 08:17 Band Neutrophils % 0 % 05/16/18 08:17 Lymphocytes % (Manual) 6.0 % (13.4-35.0) L 05/16/18 08:17 Reactive Lymphs % (Man) 0 % 05/16/18 08:17 Monocytes % (Manual) 6.0 % (0.0-7.3) 05/16/18 08:17 Eosinophils % (Manual) 0 % (0.0-4.3) 05/16/18 08:17 Basophils % (Manual) 0 % (0.0-1.8) 05/16/18 08:17 Metamyelocytes % 0 % 05/16/18 08:17 Myelocytes % 0 % 05/16/18 08:17 Promyelocytes % 0 % 05/16/18 08:17 Blast Cells % 0 % 05/16/18 08:17 Nucleated RBC % Not Reportable 05/16/18 08:17 Seg Neutrophils # 5.1 K/mm3 (1.8-7.7) 05/23/18 05:37 Seg Neutrophils # Man 16.3 K/mm3 (1.8-7.7) H 05/16/18 08:17 Band Neutrophils # 0.0 K/mm3 05/16/18 08:17 Lymphocytes # (Manual) 1.1 K/mm3 (1.2-5.4) L 05/16/18 08:17 Abs React Lymphs (Man) 0.0 K/mm3 05/16/18 08:17 Monocytes # (Manual) 1.1 K/mm3 (0.0-0.8) H 05/16/18 08:17 Eosinophils # (Manual) 0.0 K/mm3 (0.0-0.4) 05/16/18 08:17 Basophils # (Manual) 0.0 K/mm3 (0.0-0.1) 05/16/18 08:17 Metamyelocytes # 0.0 K/mm3 05/16/18 08:17 Myelocytes # 0.0 K/mm3 05/16/18 08:17 Promyelocytes # 0.0 K/mm3 05/16/18 08:17 Blast Cells # 0.0 K/mm3 05/16/18 08:17 WBC Morphology Not Reportable 05/16/18 08:17 Hypersegmented Neuts Not Reportable 05/16/18 08:17 Hyposegmented Neuts Not Reportable 05/16/18 08:17 Hypogranular Neuts Not Reportable 05/16/18 08:17 Smudge Cells Not Reportable 05/16/18 08:17 Toxic Granulation Not Reportable 05/16/18 08:17 Toxic Vacuolation Not Reportable 05/16/18 08:17 Dohle Bodies Not Reportable 05/16/18 08:17 Pel[place]-Huet Anomaly Not Reportable 05/16/18 08:17 Celio Rods Not Reportable 05/16/18 08:17 Platelet Estimate Consistent w auto 05/16/18 08:17 Clumped Platelets Not Reportable 05/16/18 08:17 Plt Clumps, EDTA Not Reportable 05/16/18 08:17 Large Platelets Not Reportable 05/16/18 08:17 Giant Platelets Not Reportable 05/16/18 08:17 Platelet Satelliting Not Reportable 05/16/18 08:17 Plt Morphology Comment Not Reportable 05/16/18 08:17 RBC Morphology Normal 05/16/18 08:17 Dimorphic RBCs Not Reportable 05/16/18 08:17 Polychromasia Not Reportable 05/16/18 08:17 Hypochromasia Not Reportable 05/16/18 08:17 Poikilocytosis Not Reportable 05/16/18 08:17 Anisocytosis Not Reportable 05/16/18 08:17 Microcytosis Not Reportable 05/16/18 08:17 Macrocytosis Not Reportable 05/16/18 08:17 Spherocytes Not Reportable 05/16/18 08:17 Pappenheimer Bodies Not Reportable 05/16/18 08:17 Sickle Cells Not Reportable 05/16/18 08:17 Target Cells Not Reportable 05/16/18 08:17 Tear Drop Cells Not Reportable 05/16/18 08:17 Ovalocytes Not Reportable 05/16/18 08:17 Helmet Cells Not Reportable 05/16/18 08:17 [place] Bodies Not Reportable 05/16/18 08:17 [place] Rings Not Reportable 05/16/18 08:17 [place] Cells Not Reportable 05/16/18 08:17 Bite Cells Not Reportable 05/16/18 08:17 Crenated Cell Not Reportable 05/16/18 08:17 Elliptocytes Not Reportable 05/16/18 08:17 Acanthocytes (Spur) Not Reportable 05/16/18 08:17 Rouleaux Not Reportable 05/16/18 08:17 Hemoglobin C Crystals Not Reportable 05/16/18 08:17 Schistocytes Not Reportable 05/16/18 08:17 Malaria parasites Not Reportable 05/16/18 08:17 Rajat Bodies Not Reportable 05/16/18 08:17 Hem Pathologist Commnt No 05/16/18 08:17 PT 13.6 Sec. (12.2-14.9) 05/16/18 08:17 INR 0.99 (0.87-1.13) 05/16/18 08:17 APTT 23.2 Sec. (24.2-36.6) L 05/16/18 08:17 Sodium 141 mmol/L (137-145) 05/25/18 08:56 Potassium 3.9 mmol/L (3.6-5.0) 05/25/18 08:56 Chloride 102.9 mmol/L (98-107) 05/25/18 08:56 Carbon Dioxide 24 mmol/L (22-30) 05/25/18 08:56 Anion Gap 18 mmol/L 05/25/18 08:56 BUN 9 mg/dL (9-20) 05/25/18 08:56 Creatinine 0.8 mg/dL (0.8-1.5) 05/25/18 08:56 Estimated GFR > 60 ml/min 05/25/18 08:56 BUN/Creatinine Ratio 11 % 05/25/18 08:56 Glucose 89 mg/dL (75-100) 05/25/18 08:56 POC Glucose 90 (70-105) 05/16/18 07:37 Lactic Acid 0.60 mmol/L (0.7-2.0) L 05/16/18 23:00 Calcium 9.1 mg/dL (8.4-10.2) 05/25/18 08:56 Magnesium 2.20 mg/dL (1.7-2.3) 05/16/18 08:17 Total Bilirubin 0.70 mg/dL (0.1-1.2) 05/23/18 05:37 Direct Bilirubin < 0.2 mg/dL (0-0.2) 05/23/18 05:37 Indirect Bilirubin 0.5 mg/dL 05/23/18 05:37 AST 46 units/L (5-40) H 05/23/18 05:37 ALT 32 units/L (7-56) 05/23/18 05:37 Alkaline Phosphatase 58 units/L (35-129) 05/23/18 05:37 Ammonia 40.0 umol/L (25-60) 05/19/18 13:34 Total Creatine Kinase 736 units/L (55-170) H 05/25/18 08:56 CK-MB (CK-2) 15.4 ng/mL (0.0-4.0) H 05/16/18 08:17 CK-MB (CK-2) Rel Index 0.9 (0-4) 05/16/18 08:17 Troponin T < 0.010 ng/mL (0.00-0.029) 05/16/18 08:17 NT-Pro-B Natriuret Pep 237.7 pg/mL (0-450) 05/16/18 08:17 Total Protein 6.2 g/dL (6.3-8.2) L 05/23/18 05:37 Albumin 3.9 g/dL (3.9-5) 05/23/18 05:37 Albumin/Globulin Ratio 1.7 % 05/23/18 05:37 TSH 2.690 mlU/mL (0.270-4.200) 05/16/18 08:17 Urine Color Yellow (Yellow) 05/16/18 10:21 Urine Turbidity Clear (Clear) 05/16/18 10:21 Urine pH 5.0 (5.0-7.0) 05/16/18 10:21 Ur Specific [place] 1.018 (1.003-1.030) 05/16/18 10:21 Urine Protein 100 mg/dl mg/dL (Negative) 05/16/18 10:21 Urine Glucose (UA) Neg mg/dL (Negative) 05/16/18 10:21 Urine Ketones 20 mg/dL (Negative) 05/16/18 10:21 Urine Blood Mod (Negative) 05/16/18 10:21 Urine Nitrite Neg (Negative) 05/16/18 10:21 Urine Bilirubin Neg (Negative) 05/16/18 10:21 Urine Urobilinogen < 2.0 mg/dL (<2.0) 05/16/18 10:21 Ur Leukocyte Esterase Neg (Negative) 05/16/18 10:21 Urine WBC (Auto) 1.0 /HPF (0.0-6.0) 05/16/18 10:21 Urine RBC (Auto) 2.0 /HPF (0.0-6.0) 05/16/18 10:21 U Epithel Cells (Auto) < 1.0 /HPF (0-13.0) 05/16/18 10:21 Urine Mucus Few /HPF 05/16/18 10:21 CSF Appearance Clear 05/16/18 Unknown CSF Color Colorless 05/16/18 Unknown CSF WBC 1 /mm3 (1-10) 05/16/18 Unknown CSF RBC 1 /mm3 (0-0) 05/16/18 Unknown CSF Seg Neutrophils 3.0 % (0-6) 05/16/18 Unknown CSF Lymphocytes % 18.0 % (40-80) 05/16/18 Unknown CSF Reactive Lymphs Not Reportable 05/16/18 Unknown CSF Monocytes % 79.0 % (15-45) 05/16/18 Unknown CSF Eosinophils % Not Reportable 05/16/18 Unknown CSF Basophils Not Reportable 05/16/18 Unknown CSF Pathologist Review C 05/16/18 Unknown CSF Glucose 77 mg/dL 05/16/18 Unknown CSF Total Protein 34 mg/dL 05/16/18 Unknown CSF VDRL Nonreactive (Nonreactive) 05/16/18 Unknown Salicylates < 0.3 mg/dL (2.8-20.0) L 05/16/18 08:17 Urine Opiates Screen Presumptive negative 05/16/18 10:21 Urine Methadone Screen Presumptive negative 05/16/18 10:21 Acetaminophen < 5.0 ug/mL (10.0-30.0) L 05/16/18 08:17 Ur Barbiturates Screen Presumptive negative 05/16/18 10:21 Ur Phencyclidine Scrn Presumptive negative 05/16/18 10:21 Ur Amphetamines Screen Presumptive negative 05/16/18 10:21 U Benzodiazepines Scrn Presumptive positive 05/16/18 10:21 Urine Cocaine Screen Presumptive negative 05/16/18 10:21 U Marijuana (THC) Screen Presumptive negative 05/16/18 10:21 Drugs of Abuse Note Disclamer 05/16/18 10:21 Plasma/Serum Alcohol < 0.01 % (0-0.07) 05/16/18 08:17 Blood Type B POSITIVE 05/16/18 11:19 Antibody Screen Negative 05/16/18 11:19
[2018-05-25] MEDS ORDERED: AMBIEN PO PRN (15:56)
[2018-05-25] MEDS: NACL 0.9% 1000 ML 1,000 ML IV SCH (19:00)
--- NOTE | 2018-05-25 20:25 | Progress Note ---
Subjective - Reason for Consult Consult date: 05/25/18 Reason for consult: follow up - Chief Complaint Chief complaint: "I am not sure if I'm getting better" 32 y.o. AA male presenting to the ER for AMS. Psychiatry follow up today. He is ambulatory and moves about the room as needed. Patient and parents are concerned the thorazine and seroquel worsened his symptoms. He had the same symptoms last night as he did the previous one. His thought process is linear and logical today. His mother provided additional history. In october,, he went for days without sleeping as a hazing ritual. He was ultimately admitted to a psychitric hospital and given multiple doses of geodon and zyprexa. She has the list of how many (2 pages listed). He paced during his hospital stay and then when he went home. He had minimal sleep due to restlessness/pacing for almost 2 months. In December,, he was taken to the hospital and given haldol. At that time he had an obvious dystonic reaction recognized by a physician at the ER. He received benadryl around the clock for 2 days and his symptoms resolved. He was taken to the [facility] later in the month and psychosis was not identified. Today, he admitted to drinking alcohol regularly. He initially denied it, but stated he had drank more than usual prior to this hospital visit. He wants to decline all medication except those for blood pressure. He denies depression or anxiety. He is open to going to AA meetings. He denies hallucinations. He denies suicidal or homicidal ideation. His presentation today is improved from yesterday. Mental Status Exam - Vital signs Last Vital Signs Temp 98.2 F 05/25/18 18:20 Pulse 73 05/25/18 18:20 Resp 20 05/25/18 18:20 BP 165/102 05/25/18 18:20 Pulse Ox 98 05/25/18 18:20 - Exam Narrative exam: MSE: Appearance: calm Behavior: regular eye contact Speech: regular rate and tone Mood: irritable Affect: constricted Thought Process: linear, logical Thought Content: denies SI/HI/AVH Motor Activity: ambulatory Cognition: A/O x 3 Insight: fair Judgment: fair Assessment and Plan Impression: Unspecified Psychosis. R/O Alcohol Use DO. Insomnia. Today the patient is calm and cooperative during the assessment. CK is elevated but trending down to 767 today. He is not in restraints. He is ambulatory. Paranoia resolving. Most recent ammonia level was WNL. DDx: Bipolar DO, R/O Schizophrenia Medical: Acute Metabolic Encephalopathy on admission-resolving Recommendation/Plan: Once medically cleared, reevaluate for psychotic symptoms. Continue Cogentin 0.5 mg PO HS for EPS prevention considering the cumulative effect of several antipsychotic doses. Klonopin 0.5 mg PO BID for anxiety. Antipsychotics discontinued. Continue medical treatment per the medical team. Recommend Delirium precautions below: 1. Frequently reorient patient and involve him/her in their care (simple explanations of procedures, tests, medications). 2. Lights on and shades open during daytime hours. 3. Write date and goals of care in a visible place. 4. Try to avoid unnecessary interruptions to sleep during nighttime hours. 5. Obtain glasses, hearing aids from home if patient uses these at baseline. 6. Avoid medications that may exacerbate delirium (especially narcotics, benzodiazepines (avoid high/repeated doses), barbiturates, ambien, lunesta, and medications with excessive anticholinergic properties). 7. Discontinue restraints when no longer needed.
[2018-05-25] MEDS: LOVENOX SUB-Q SCH (22:31)
[2018-05-25] MEDS: COGENTIN PO SCH (22:32)
[2018-05-26] MEDS: NACL 0.9% 1000 ML 1,000 ML IV SCH ×4 (00:11→16:40)
[2018-05-26] MEDS: ATIVAN IV PRN ×3 (01:37→22:44)
[2018-05-26] MEDS: APRESOLINE PO SCH ×4 (06:10→22:45)
[2018-05-26] MEDS: CATAPRES PO SCH ×4 (06:11→22:44)
[2018-05-26] MEDS: LASIX IV SCH ×2 (06:11→18:42)
[2018-05-26] MEDS: SODIUM CHLORIDE FLUSH SYRINGE 10 ML IV SCH ×2 (11:56→22:46)
[2018-05-26] MEDS: TENORMIN PO SCH (12:03)
--- NOTE | 2018-05-26 13:25 | Progress Note ---
Assessment and Plan Hypertensive urgency Rhabdomyolysis Acute encephalopathy Acute psychosis Leukocytosis, LP negative Polysubstance abuse disorder Obesity Low lung volumes h/o Bipolar disorder (I am not convinced that the seroquel is responsible for the continued anxiety / agitation. 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) - continue blood pressure control with clonidine and atenolol (much improved) - MRI of the brain negative - SIRS improved - Continue psychiatry evaluation - S/P lumbar puncture and negative (toxic metabolic component of encephalopathy resolving) - continue incentive spirometry and deep breathing exercises - Life style modification and weight loss counselled prior - continue nicotine withdrawal precautions - continue lcohol withdrawal precautions - continue CIWA protocol - continue VTE prophyalxis - continue GI prophylaxis - MRI negative - Discontinued antibiotics and monitor off antibiotics - Follow cpK trend - lactic acidosis resolved - continue psychoactive meds (seroquel added) - remains a 1013 status ... re-evaluate in am & prn .. 25' Subjective Date of service: 05/26/18 Principal diagnosis: metabolic encephalopathy, hypertensive urgency, acute psychosis, SIRS Interval history: Patient is seen today for: Acute Metabolic Encephalopathy; hypertensive urgency ; SIRS Seen and examined at bedside; 24hour events reviewed; nursing and respiratory care staff consulted; no adverse overnight events reported to me; Objective Vital Signs - 12hr 05/26/18 05/26/18 05/26/18 06:10 06:11 12:03 Pulse Rate 73 73 Blood Pressure 151/104 151/104 144/92 Constitutional: no acute distress, asleep, other (anxious looking young AAM, normocephalic and atraumatic with mildly increased respiratory effort) Eyes: non-icteric ENT: oropharynx moist, other (mallampatti 2) Neck: supple, no lymphadenopathy, no JVD, other (no thyromegaly) Effort: mildly labored Ascultation: Bilateral: clear, rhonchi (posterior base) Percussion: Bilateral: not dull Cardiovascular: regular rate and rhythm, other (No R/M) Gastrointestinal: normoactive bowel sounds, soft, non-tender, non-distended, other (No HSM) Integumentary: normal Extremities: no cyanosis, no edema, pink and warm, pulses normal, no ischemia or petechiae Neurologic: normal mental status, non-focal exam, pupils equal and round, CN II- XII normal, motor strength normal and Psychiatric: anxious, other (pressured speech; tangential thoughts) CBC and BMP: 05/23/18 05:37 05/25/18 08:56 ABG, PT/INR, D-dimer: PT/INR, D-dimer PT 13.6 Sec. (12.2-14.9) 05/16/18 08:17 INR 0.99 (0.87-1.13) 05/16/18 08:17 Abnormal lab findings: Abnormal Labs 05/16/18 05/16/18 05/16/18 08:17 08:17 08:17 WBC 18.5 H RBC 5.22 H Hct 46.2 H Mason % (Auto) Mason # Seg Neutrophils % Seg Neuts % (Manual) 88.0 H Lymphocytes % (Manual) 6.0 L Seg Neutrophils # Man 16.3 H Lymphocytes # (Manual) 1.1 L Monocytes # (Manual) 1.1 H APTT Potassium 3.4 L Chloride 94.3 L Carbon Dioxide 17 L BUN Creatinine Glucose 137 H Lactic Acid 8.60 H* AST 47 H Ammonia Total Creatine Kinase CK-MB (CK-2) Total Protein Salicylates Acetaminophen 05/16/18 05/16/18 05/16/18 08:17 08:17 08:17 WBC RBC Hct [place] % (Auto) Mason # Seg Neutrophils % Seg Neuts % (Manual) Lymphocytes % (Manual) Seg Neutrophils # Man Lymphocytes # (Manual) Monocytes # (Manual) APTT 23.2 L Potassium Chloride Carbon Dioxide BUN Creatinine Glucose Lactic Acid AST Ammonia 96.0 H Total Creatine Kinase 1691 H CK-MB (CK-2) 15.4 H Total Protein Salicylates Acetaminophen 05/16/18 05/16/18 05/16/18 08:17 08:17 11:19 WBC RBC Hct [place] % (Auto) Mason # Seg Neutrophils % Seg Neuts % (Manual) Lymphocytes % (Manual) Seg Neutrophils # Man Lymphocytes # (Manual) Monocytes # (Manual) APTT Potassium Chloride Carbon Dioxide 21 L BUN Creatinine 0.7 L Glucose Lactic Acid AST 50 H Ammonia Total Creatine Kinase CK-MB (CK-2) Total Protein Salicylates < 0.3 L Acetaminophen < 5.0 L 05/16/18 05/16/18 05/17/18 13:37 23:00 04:17 WBC 12.0 H RBC Hct [place] % (Auto) Mason # Seg Neutrophils % Seg Neuts % (Manual) Lymphocytes % (Manual) Seg Neutrophils # Man Lymphocytes # (Manual) Monocytes # (Manual) APTT Potassium Chloride Carbon Dioxide BUN Creatinine Glucose Lactic Acid 0.60 L AST Ammonia Total Creatine Kinase 2794 H CK-MB (CK-2) Total Protein Salicylates Acetaminophen 05/17/18 05/18/18 05/19/18 04:17 03:57 13:34 WBC RBC Hct [place] % (Auto) [place] # Seg Neutrophils % Seg Neuts % (Manual) Lymphocytes % (Manual) Seg Neutrophils # Man Lymphocytes # (Manual) Monocytes # (Manual) APTT Potassium Chloride Carbon Dioxide 21 L BUN 6 L Creatinine 0.7 L 0.6 L Glucose 62 L Lactic Acid AST Ammonia Total Creatine Kinase 3668 H 2654 H 1108 H CK-MB (CK-2) Total Protein Salicylates Acetaminophen 05/21/18 05/22/18 05/22/18 06:42 05:16 05:16 WBC RBC Hct [place] % (Auto) 9.3 H Mason # 1.0 H Seg Neutrophils % 72.8 H Seg Neuts % (Manual) Lymphocytes % (Manual) Seg Neutrophils # Man Lymphocytes # (Manual) Monocytes # (Manual) APTT Potassium Chloride Carbon Dioxide BUN 6 L Creatinine 0.7 L Glucose Lactic Acid AST Ammonia Total Creatine Kinase 2424 H 1808 H CK-MB (CK-2) Total Protein Salicylates Acetaminophen 05/23/18 05/23/18 05/24/18 05:37 05:37 09:32 WBC RBC Hct [place] % (Auto) 11.5 H Mason # 0.9 H Seg Neutrophils % Seg Neuts % (Manual) Lymphocytes % (Manual) Seg Neutrophils # Man Lymphocytes # (Manual) Monocytes # (Manual) APTT Potassium 3.3 L Chloride Carbon Dioxide BUN 7 L 8 L Creatinine 0.7 L Glucose 128 H Lactic Acid AST 46 H Ammonia Total Creatine Kinase 1700 H 1367 H CK-MB (CK-2) Total Protein 6.2 L Salicylates Acetaminophen 05/25/18 05/26/18 08:56 06:45 WBC RBC Hct [place] % (Auto) Mason # Seg Neutrophils % Seg Neuts % (Manual) Lymphocytes % (Manual) Seg Neutrophils # Man Lymphocytes # (Manual) Monocytes # (Manual) APTT Potassium Chloride Carbon Dioxide BUN Creatinine Glucose Lactic Acid AST Ammonia Total Creatine Kinase 736 H 471 H CK-MB (CK-2) Total Protein Salicylates Acetaminophen Allied health notes reviewed: nursing
--- NOTE | 2018-05-26 14:07 | Progress Note ---
Subjective - Reason for Consult Consult date: 05/26/18 Reason for consult: Psychiatry Follow-up - Chief Complaint Chief complaint: "Something happened last night" 32 y.o. AA male presenting to the ER for AMS. Psychiatry was consulted to see patient. Today the patient is calm, but disorganized during the assessment. He could not explain what happened last night when asked. Per collateral information from his mother, the patient had another psychotic episode ( paranoia and being tangent with his thoughts). She stated that he woke up "frantic" speaking about things that didn't make sense referencing you tube videos he viewed prior to his hospitalization. His mother stated, "I am afraid for Jerod to come home." The patient denies SI/HI's and AVH's. He continue to believe something or someone is after him. Mental Status Exam - Vital signs Last Vital Signs Temp 98.6 F 05/26/18 11:51 Pulse 68 05/26/18 11:51 Resp 18 05/26/18 11:51 BP 144/92 05/26/18 12:03 Pulse Ox 96 05/26/18 11:51 - Exam Narrative exam: MSE: Appearance: calm Behavior: regular eye contact Speech: regular rate and tone Mood: apprehensive, guarded Affect: congruent to mood Thought Process: disorganized, loose associations Thought Content: denies SI/HI's and AVH's, paranoid, delusional Motor Activity: ambulatory Cognition: A/O x 3 Insight: poor Judgment: poor Assessment and Plan Impression: Unspecified Psychosis. R/O Alcohol Use DO. Insomnia. Today the patient is calm and cooperative during the assessment. CK 471. The patient is in restraints. DDx: Bipolar DO, R/O Schizophrenia Medical: Acute Metabolic Encephalopathy on admission Recommendation/Plan: Continue 1013 with placement to inpatient psy services once medically clear. Continue Cogentin 0.5 mg PO HS for EPS prevention considering the cumulative effect of several antipsychotic doses. Discuss risk/ benefits of antipsychotics. At this time the patient does not want to take any antipsychotics. The patient's parent agree with their son.
--- NOTE | 2018-05-26 14:37 | Progress Note ---
Assessment and Plan Assessment and plan: --Acute psychosis; possible bipolar/schizophrenia,Symptoms resolved Psych following, Seroquel was held and continue Cogentin Klonopin and Ativan And he is supportive care --Rhabdomyolysis; CK levels trending down [phone] Preserved renal function, continue IV fluidsn Plenty oral liquids --Hypertensive urgency; blood pressure significantly improved Her current antihypertensives and when necessary medications --Acute Metabolic Encephalopathy; on admission, Now resolved --Status post lumbar puncture. Meningitis ruled out --History of hazing many years ago; --Hyperammonemia; present on admission, Resolved --Lactic acidosis; resolved --DVT prophylaxis; Lovenox --1013 status Patient is medically stable for discharge Disposition per psych, possible transfer to inpatient psych facility versus OR home. Plan of care reviewed with the patient, the parents, his nurse In the case management History Interval history: Patient seen and examined medical records reviewed, [safety risk lead, parents at the bedside] Patient feels slightly better alert awake oriented 3 No agitation and aggression CK levels significantly improved today 471 Vital signs reviewed stable Hospitalist Physical - Constitutional Vitals: Temp Pulse Resp BP Pulse Ox 98.6 F 68 18 144/92 96 05/26/18 11:51 05/26/18 11:51 05/26/18 11:51 05/26/18 12:03 05/26/18 11:51 General appearance: Present: no acute distress, well-nourished - EENT Eyes: Present: PERRL, EOM intact - Neck Neck: Present: supple, normal ROM - Respiratory Respiratory effort: normal Respiratory: negative: rales, rhonchi, wheezing - Cardiovascular Rhythm: regular Heart Sounds: Present: S1 & S2 - Extremities Extremities: no ischemia, No edema - Abdominal General gastrointestinal: soft, non-tender, non-distended, normal bowel sounds - Integumentary Integumentary: Present: clear, warm - Psychiatric Psychiatric: appropriate mood/affect, cooperative - Neurologic Neurologic: CNII-XII intact, moves all extremities Results - Labs CBC & Chem 7: 05/23/18 05:37 05/25/18 08:56 Labs: Laboratory Last Values WBC 8.0 K/mm3 (4.5-11.0) 05/23/18 05:37 RBC 4.58 M/mm3 (3.65-5.03) 05/23/18 05:37 Hgb 13.7 gm/dl (11.8-15.2) 05/23/18 05:37 Hct 41.5 % (35.5-45.6) 05/23/18 05:37 MCV 91 fl (84-94) 05/23/18 05:37 MCH 30 pg (28-32) 05/23/18 05:37 MCHC 33 % (32-34) 05/23/18 05:37 RDW 14.1 % (13.2-15.2) 05/23/18 05:37 Plt Count 205 K/mm3 (140-440) 05/23/18 05:37 Lymph % (Auto) 21.7 % (13.4-35.0) 05/23/18 05:37 [place] % (Auto) 11.5 % (0.0-7.3) H 05/23/18 05:37 Eos % (Auto) 1.8 % (0.0-4.3) 05/23/18 05:37 Baso % (Auto) 0.6 % (0.0-1.8) 05/23/18 05:37 Lymph # 1.7 K/mm3 (1.2-5.4) 05/23/18 05:37 [place] # 0.9 K/mm3 (0.0-0.8) H 05/23/18 05:37 Eos # 0.1 K/mm3 (0.0-0.4) 05/23/18 05:37 Baso # 0.0 K/mm3 (0.0-0.1) 05/23/18 05:37 Add Manual Diff Complete 05/16/18 08:17 Total Counted 100 05/16/18 08:17 Seg Neutrophils % 64.4 % (40.0-70.0) 05/23/18 05:37 Seg Neuts % (Manual) 88.0 % (40.0-70.0) H 05/16/18 08:17 Band Neutrophils % 0 % 05/16/18 08:17 Lymphocytes % (Manual) 6.0 % (13.4-35.0) L 05/16/18 08:17 Reactive Lymphs % (Man) 0 % 05/16/18 08:17 Monocytes % (Manual) 6.0 % (0.0-7.3) 05/16/18 08:17 Eosinophils % (Manual) 0 % (0.0-4.3) 05/16/18 08:17 Basophils % (Manual) 0 % (0.0-1.8) 05/16/18 08:17 Metamyelocytes % 0 % 05/16/18 08:17 Myelocytes % 0 % 05/16/18 08:17 Promyelocytes % 0 % 05/16/18 08:17 Blast Cells % 0 % 05/16/18 08:17 Nucleated RBC % Not Reportable 05/16/18 08:17 Seg Neutrophils # 5.1 K/mm3 (1.8-7.7) 05/23/18 05:37 Seg Neutrophils # Man 16.3 K/mm3 (1.8-7.7) H 05/16/18 08:17 Band Neutrophils # 0.0 K/mm3 05/16/18 08:17 Lymphocytes # (Manual) 1.1 K/mm3 (1.2-5.4) L 05/16/18 08:17 Abs React Lymphs (Man) 0.0 K/mm3 05/16/18 08:17 Monocytes # (Manual) 1.1 K/mm3 (0.0-0.8) H 05/16/18 08:17 Eosinophils # (Manual) 0.0 K/mm3 (0.0-0.4) 05/16/18 08:17 Basophils # (Manual) 0.0 K/mm3 (0.0-0.1) 05/16/18 08:17 Metamyelocytes # 0.0 K/mm3 05/16/18 08:17 Myelocytes # 0.0 K/mm3 05/16/18 08:17 Promyelocytes # 0.0 K/mm3 05/16/18 08:17 Blast Cells # 0.0 K/mm3 05/16/18 08:17 WBC Morphology Not Reportable 05/16/18 08:17 Hypersegmented Neuts Not Reportable 05/16/18 08:17 Hyposegmented Neuts Not Reportable 05/16/18 08:17 Hypogranular Neuts Not Reportable 05/16/18 08:17 Smudge Cells Not Reportable 05/16/18 08:17 Toxic Granulation Not Reportable 05/16/18 08:17 Toxic Vacuolation Not Reportable 05/16/18 08:17 Dohle Bodies Not Reportable 05/16/18 08:17 Pelger-Huet Anomaly Not Reportable 05/16/18 08:17 Celio Rods Not Reportable 05/16/18 08:17 Platelet Estimate Consistent w auto 05/16/18 08:17 Clumped Platelets Not Reportable 05/16/18 08:17 Plt Clumps, EDTA Not Reportable 05/16/18 08:17 Large Platelets Not Reportable 05/16/18 08:17 Giant Platelets Not Reportable 05/16/18 08:17 Platelet Satelliting Not Reportable 05/16/18 08:17 Plt Morphology Comment Not Reportable 05/16/18 08:17 RBC Morphology Normal 05/16/18 08:17 Dimorphic RBCs Not Reportable 05/16/18 08:17 Polychromasia Not Reportable 05/16/18 08:17 Hypochromasia Not Reportable 05/16/18 08:17 Poikilocytosis Not Reportable 05/16/18 08:17 Anisocytosis Not Reportable 05/16/18 08:17 Microcytosis Not Reportable 05/16/18 08:17 Macrocytosis Not Reportable 05/16/18 08:17 Spherocytes Not Reportable 05/16/18 08:17 Pappenheimer Bodies Not Reportable 05/16/18 08:17 Sickle Cells Not Reportable 05/16/18 08:17 Target Cells Not Reportable 05/16/18 08:17 Tear Drop Cells Not Reportable 05/16/18 08:17 Ovalocytes Not Reportable 05/16/18 08:17 Helmet Cells Not Reportable 05/16/18 08:17 [place] Bodies Not Reportable 05/16/18 08:17 [place] Rings Not Reportable 05/16/18 08:17 [place] Cells Not Reportable 05/16/18 08:17 Bite Cells Not Reportable 05/16/18 08:17 Crenated Cell Not Reportable 05/16/18 08:17 Elliptocytes Not Reportable 05/16/18 08:17 Acanthocytes (Spur) Not Reportable 05/16/18 08:17 Rouleaux Not Reportable 05/16/18 08:17 Hemoglobin C Crystals Not Reportable 05/16/18 08:17 Schistocytes Not Reportable 05/16/18 08:17 Malaria parasites Not Reportable 05/16/18 08:17 Rajat Bodies Not Reportable 05/16/18 08:17 Hem Pathologist Commnt No 05/16/18 08:17 PT 13.6 Sec. (12.2-14.9) 05/16/18 08:17 INR 0.99 (0.87-1.13) 05/16/18 08:17 APTT 23.2 Sec. (24.2-36.6) L 05/16/18 08:17 Sodium 141 mmol/L (137-145) 05/25/18 08:56 Potassium 3.9 mmol/L (3.6-5.0) 05/25/18 08:56 Chloride 102.9 mmol/L (98-107) 05/25/18 08:56 Carbon Dioxide 24 mmol/L (22-30) 05/25/18 08:56 Anion Gap 18 mmol/L 05/25/18 08:56 BUN 9 mg/dL (9-20) 05/25/18 08:56 Creatinine 0.8 mg/dL (0.8-1.5) 05/25/18 08:56 Estimated GFR > 60 ml/min 05/25/18 08:56 BUN/Creatinine Ratio 11 % 05/25/18 08:56 Glucose 89 mg/dL (75-100) 05/25/18 08:56 POC Glucose 90 (70-105) 05/16/18 07:37 Lactic Acid 0.60 mmol/L (0.7-2.0) L 05/16/18 23:00 Calcium 9.1 mg/dL (8.4-10.2) 05/25/18 08:56 Phosphorus 2.90 mg/dL (2.5-4.5) 05/26/18 06:45 Magnesium 2.00 mg/dL (1.7-2.3) 05/26/18 06:45 Total Bilirubin 0.70 mg/dL (0.1-1.2) 05/23/18 05:37 Direct Bilirubin < 0.2 mg/dL (0-0.2) 05/23/18 05:37 Indirect Bilirubin 0.5 mg/dL 05/23/18 05:37 AST 46 units/L (5-40) H 05/23/18 05:37 ALT 32 units/L (7-56) 05/23/18 05:37 Alkaline Phosphatase 58 units/L (35-129) 05/23/18 05:37 Ammonia 40.0 umol/L (25-60) 05/19/18 13:34 Total Creatine Kinase 471 units/L (55-170) H 05/26/18 06:45 CK-MB (CK-2) 15.4 ng/mL (0.0-4.0) H 05/16/18 08:17 CK-MB (CK-2) Rel Index 0.9 (0-4) 05/16/18 08:17 Troponin T < 0.010 ng/mL (0.00-0.029) 05/16/18 08:17 NT-Pro-B Natriuret Pep 237.7 pg/mL (0-450) 05/16/18 08:17 Total Protein 6.2 g/dL (6.3-8.2) L 05/23/18 05:37 Albumin 3.9 g/dL (3.9-5) 05/23/18 05:37 Albumin/Globulin Ratio 1.7 % 05/23/18 05:37 TSH 2.690 mlU/mL (0.270-4.200) 05/16/18 08:17 Urine Color Yellow (Yellow) 05/16/18 10:21 Urine Turbidity Clear (Clear) 05/16/18 10:21 Urine pH 5.0 (5.0-7.0) 05/16/18 10:21 Ur Specific [place] 1.018 (1.003-1.030) 05/16/18 10:21 Urine Protein 100 mg/dl mg/dL (Negative) 05/16/18 10:21 Urine Glucose (UA) Neg mg/dL (Negative) 05/16/18 10:21 Urine Ketones 20 mg/dL (Negative) 05/16/18 10:21 Urine Blood Mod (Negative) 05/16/18 10:21 Urine Nitrite Neg (Negative) 05/16/18 10:21 Urine Bilirubin Neg (Negative) 05/16/18 10:21 Urine Urobilinogen < 2.0 mg/dL (<2.0) 05/16/18 10:21 Ur Leukocyte Esterase Neg (Negative) 05/16/18 10:21 Urine WBC (Auto) 1.0 /HPF (0.0-6.0) 05/16/18 10:21 Urine RBC (Auto) 2.0 /HPF (0.0-6.0) 05/16/18 10:21 U Epithel Cells (Auto) < 1.0 /HPF (0-13.0) 05/16/18 10:21 Urine Mucus Few /HPF 05/16/18 10:21 CSF Appearance Clear 05/16/18 Unknown CSF Color Colorless 05/16/18 Unknown CSF WBC 1 /mm3 (1-10) 05/16/18 Unknown CSF RBC 1 /mm3 (0-0) 05/16/18 Unknown CSF Seg Neutrophils 3.0 % (0-6) 05/16/18 Unknown CSF Lymphocytes % 18.0 % (40-80) 05/16/18 Unknown CSF Reactive Lymphs Not Reportable 05/16/18 Unknown CSF Monocytes % 79.0 % (15-45) 05/16/18 Unknown CSF Eosinophils % Not Reportable 05/16/18 Unknown CSF Basophils Not Reportable 05/16/18 Unknown CSF Pathologist Review C 05/16/18 Unknown CSF Glucose 77 mg/dL 05/16/18 Unknown CSF Total Protein 34 mg/dL 05/16/18 Unknown CSF VDRL Nonreactive (Nonreactive) 05/16/18 Unknown Salicylates < 0.3 mg/dL (2.8-20.0) L 05/16/18 08:17 Urine Opiates Screen Presumptive negative 05/16/18 10:21 Urine Methadone Screen Presumptive negative 05/16/18 10:21 Acetaminophen < 5.0 ug/mL (10.0-30.0) L 05/16/18 08:17 Ur Barbiturates Screen Presumptive negative 05/16/18 10:21 Ur Phencyclidine Scrn Presumptive negative 05/16/18 10:21 Ur Amphetamines Screen Presumptive negative 05/16/18 10:21 U Benzodiazepines Scrn Presumptive positive 05/16/18 10:21 Urine Cocaine Screen Presumptive negative 05/16/18 10:21 U Marijuana (THC) Screen Presumptive negative 05/16/18 10:21 Drugs of Abuse Note Disclamer 05/16/18 10:21 Plasma/Serum Alcohol < 0.01 % (0-0.07) 05/16/18 08:17 Blood Type B POSITIVE 05/16/18 11:19 Antibody Screen Negative 05/16/18 11:19
[2018-05-26] MEDS: LOVENOX SUB-Q SCH (22:43)
[2018-05-26] MEDS: COGENTIN PO SCH (22:45)
[2018-05-27] MEDS: NACL 0.9% 1000 ML 1,000 ML IV SCH (06:46)
[2018-05-27] MEDS: APRESOLINE PO SCH ×2 (06:46→14:37)
[2018-05-27] MEDS: CATAPRES PO SCH ×2 (06:47→14:36)
[2018-05-27] MEDS: LASIX IV SCH (06:48)
[2018-05-27] MEDS: ATIVAN IV PRN (06:48)
--- NOTE | 2018-05-27 08:06 | Progress Note ---
Assessment and Plan Assessment and plan: --Acute psychosis; possible bipolar/schizophrenia, management per psych. Patient is increasingly agitated during nights --Rhabdomyolysis; CK levels trending down [phone] [phone] Preserved renal function, and use IV fluids to 75 mL/hr ,DC Lasix --Hypertensive urgency; blood pressure is controlled Continue current antihypertensives and PRN medications --Acute Metabolic Encephalopathy; on admission, Now resolved Patient gets agitated and aggressive during nights --Status post lumbar puncture. Meningitis ruled out --History of hazing many years ago; --Hyperammonemia; present on admission, Resolved --Lactic acidosis; resolved --DVT prophylaxis; Lovenox --1013 status Condition and is medically stable for discharge from the hospital Disposition per psych,possible transfer to inpatient psych facility Hospitalist Physical - Constitutional Vitals: Temp Pulse Resp BP Pulse Ox 98.1 F 66 20 148/95 94 05/27/18 05:33 05/27/18 06:47 05/27/18 05:33 05/27/18 06:47 05/27/18 05:33 General appearance: Present: no acute distress, well-nourished Results - Labs CBC & Chem 7: 05/23/18 05:37 05/25/18 08:56 Labs: Laboratory Last Values WBC 8.0 K/mm3 (4.5-11.0) 05/23/18 05:37 RBC 4.58 M/mm3 (3.65-5.03) 05/23/18 05:37 Hgb 13.7 gm/dl (11.8-15.2) 05/23/18 05:37 Hct 41.5 % (35.5-45.6) 05/23/18 05:37 MCV 91 fl (84-94) 05/23/18 05:37 MCH 30 pg (28-32) 05/23/18 05:37 MCHC 33 % (32-34) 05/23/18 05:37 RDW 14.1 % (13.2-15.2) 05/23/18 05:37 Plt Count 205 K/mm3 (140-440) 05/23/18 05:37 Lymph % (Auto) 21.7 % (13.4-35.0) 05/23/18 05:37 [place] % (Auto) 11.5 % (0.0-7.3) H 05/23/18 05:37 Eos % (Auto) 1.8 % (0.0-4.3) 05/23/18 05:37 Baso % (Auto) 0.6 % (0.0-1.8) 05/23/18 05:37 Lymph # 1.7 K/mm3 (1.2-5.4) 05/23/18 05:37 [place] # 0.9 K/mm3 (0.0-0.8) H 05/23/18 05:37 Eos # 0.1 K/mm3 (0.0-0.4) 05/23/18 05:37 Baso # 0.0 K/mm3 (0.0-0.1) 05/23/18 05:37 Add Manual Diff Complete 05/16/18 08:17 Total Counted 100 05/16/18 08:17 Seg Neutrophils % 64.4 % (40.0-70.0) 05/23/18 05:37 Seg Neuts % (Manual) 88.0 % (40.0-70.0) H 05/16/18 08:17 Band Neutrophils % 0 % 05/16/18 08:17 Lymphocytes % (Manual) 6.0 % (13.4-35.0) L 05/16/18 08:17 Reactive Lymphs % (Man) 0 % 05/16/18 08:17 Monocytes % (Manual) 6.0 % (0.0-7.3) 05/16/18 08:17 Eosinophils % (Manual) 0 % (0.0-4.3) 05/16/18 08:17 Basophils % (Manual) 0 % (0.0-1.8) 05/16/18 08:17 Metamyelocytes % 0 % 05/16/18 08:17 Myelocytes % 0 % 05/16/18 08:17 Promyelocytes % 0 % 05/16/18 08:17 Blast Cells % 0 % 05/16/18 08:17 Nucleated RBC % Not Reportable 05/16/18 08:17 Seg Neutrophils # 5.1 K/mm3 (1.8-7.7) 05/23/18 05:37 Seg Neutrophils # Man 16.3 K/mm3 (1.8-7.7) H 05/16/18 08:17 Band Neutrophils # 0.0 K/mm3 05/16/18 08:17 Lymphocytes # (Manual) 1.1 K/mm3 (1.2-5.4) L 05/16/18 08:17 Abs React Lymphs (Man) 0.0 K/mm3 05/16/18 08:17 Monocytes # (Manual) 1.1 K/mm3 (0.0-0.8) H 05/16/18 08:17 Eosinophils # (Manual) 0.0 K/mm3 (0.0-0.4) 05/16/18 08:17 Basophils # (Manual) 0.0 K/mm3 (0.0-0.1) 05/16/18 08:17 Metamyelocytes # 0.0 K/mm3 05/16/18 08:17 Myelocytes # 0.0 K/mm3 05/16/18 08:17 Promyelocytes # 0.0 K/mm3 05/16/18 08:17 Blast Cells # 0.0 K/mm3 05/16/18 08:17 WBC Morphology Not Reportable 05/16/18 08:17 Hypersegmented Neuts Not Reportable 05/16/18 08:17 Hyposegmented Neuts Not Reportable 05/16/18 08:17 Hypogranular Neuts Not Reportable 05/16/18 08:17 Smudge Cells Not Reportable 05/16/18 08:17 Toxic Granulation Not Reportable 05/16/18 08:17 Toxic Vacuolation Not Reportable 05/16/18 08:17 Dohle Bodies Not Reportable 05/16/18 08:17 Pelger-Huet Anomaly Not Reportable 05/16/18 08:17 Celio Rods Not Reportable 05/16/18 08:17 Platelet Estimate Consistent w auto 05/16/18 08:17 Clumped Platelets Not Reportable 05/16/18 08:17 Plt Clumps, EDTA Not Reportable 05/16/18 08:17 Large Platelets Not Reportable 05/16/18 08:17 Giant Platelets Not Reportable 05/16/18 08:17 Platelet Satelliting Not Reportable 05/16/18 08:17 Plt Morphology Comment Not Reportable 05/16/18 08:17 RBC Morphology Normal 05/16/18 08:17 Dimorphic RBCs Not Reportable 05/16/18 08:17 Polychromasia Not Reportable 05/16/18 08:17 Hypochromasia Not Reportable 05/16/18 08:17 Poikilocytosis Not Reportable 05/16/18 08:17 Anisocytosis Not Reportable 05/16/18 08:17 Microcytosis Not Reportable 05/16/18 08:17 Macrocytosis Not Reportable 05/16/18 08:17 Spherocytes Not Reportable 05/16/18 08:17 Pappenheimer Bodies Not Reportable 05/16/18 08:17 Sickle Cells Not Reportable 05/16/18 08:17 Target Cells Not Reportable 05/16/18 08:17 Tear Drop Cells Not Reportable 05/16/18 08:17 Ovalocytes Not Reportable 05/16/18 08:17 Helmet Cells Not Reportable 05/16/18 08:17 [place] Bodies Not Reportable 05/16/18 08:17 [place] Rings Not Reportable 05/16/18 08:17 [place] Cells Not Reportable 05/16/18 08:17 Bite Cells Not Reportable 05/16/18 08:17 Crenated Cell Not Reportable 05/16/18 08:17 Elliptocytes Not Reportable 05/16/18 08:17 Acanthocytes (Spur) Not Reportable 05/16/18 08:17 Rouleaux Not Reportable 05/16/18 08:17 Hemoglobin C Crystals Not Reportable 05/16/18 08:17 Schistocytes Not Reportable 05/16/18 08:17 Malaria parasites Not Reportable 05/16/18 08:17 Rajat Bodies Not Reportable 05/16/18 08:17 Hem Pathologist Commnt No 05/16/18 08:17 PT 13.6 Sec. (12.2-14.9) 05/16/18 08:17 INR 0.99 (0.87-1.13) 05/16/18 08:17 APTT 23.2 Sec. (24.2-36.6) L 05/16/18 08:17 Sodium 141 mmol/L (137-145) 05/25/18 08:56 Potassium 3.9 mmol/L (3.6-5.0) 05/25/18 08:56 Chloride 102.9 mmol/L (98-107) 05/25/18 08:56 Carbon Dioxide 24 mmol/L (22-30) 05/25/18 08:56 Anion Gap 18 mmol/L 05/25/18 08:56 BUN 9 mg/dL (9-20) 05/25/18 08:56 Creatinine 0.8 mg/dL (0.8-1.5) 05/25/18 08:56 Estimated GFR > 60 ml/min 05/25/18 08:56 BUN/Creatinine Ratio 11 % 05/25/18 08:56 Glucose 89 mg/dL (75-100) 05/25/18 08:56 POC Glucose 90 (70-105) 05/16/18 07:37 Lactic Acid 0.60 mmol/L (0.7-2.0) L 05/16/18 23:00 Calcium 9.1 mg/dL (8.4-10.2) 05/25/18 08:56 Phosphorus 2.90 mg/dL (2.5-4.5) 05/26/18 06:45 Magnesium 2.00 mg/dL (1.7-2.3) 05/26/18 06:45 Total Bilirubin 0.70 mg/dL (0.1-1.2) 05/23/18 05:37 Direct Bilirubin < 0.2 mg/dL (0-0.2) 05/23/18 05:37 Indirect Bilirubin 0.5 mg/dL 05/23/18 05:37 AST 46 units/L (5-40) H 05/23/18 05:37 ALT 32 units/L (7-56) 05/23/18 05:37 Alkaline Phosphatase 58 units/L (35-129) 05/23/18 05:37 Ammonia 40.0 umol/L (25-60) 05/19/18 13:34 Total Creatine Kinase 355 units/L (55-170) H 05/27/18 05:26 CK-MB (CK-2) 15.4 ng/mL (0.0-4.0) H 05/16/18 08:17 CK-MB (CK-2) Rel Index 0.9 (0-4) 05/16/18 08:17 Troponin T < 0.010 ng/mL (0.00-0.029) 05/16/18 08:17 NT-Pro-B Natriuret Pep 237.7 pg/mL (0-450) 05/16/18 08:17 Total Protein 6.2 g/dL (6.3-8.2) L 05/23/18 05:37 Albumin 3.9 g/dL (3.9-5) 05/23/18 05:37 Albumin/Globulin Ratio 1.7 % 05/23/18 05:37 TSH 2.690 mlU/mL (0.270-4.200) 05/16/18 08:17 Urine Color Yellow (Yellow) 05/16/18 10:21 Urine Turbidity Clear (Clear) 05/16/18 10:21 Urine pH 5.0 (5.0-7.0) 05/16/18 10:21 Ur Specific [place] 1.018 (1.003-1.030) 05/16/18 10:21 Urine Protein 100 mg/dl mg/dL (Negative) 05/16/18 10:21 Urine Glucose (UA) Neg mg/dL (Negative) 05/16/18 10:21 Urine Ketones 20 mg/dL (Negative) 05/16/18 10:21 Urine Blood Mod (Negative) 05/16/18 10:21 Urine Nitrite Neg (Negative) 05/16/18 10:21 Urine Bilirubin Neg (Negative) 05/16/18 10:21 Urine Urobilinogen < 2.0 mg/dL (<2.0) 05/16/18 10:21 Ur Leukocyte Esterase Neg (Negative) 05/16/18 10:21 Urine WBC (Auto) 1.0 /HPF (0.0-6.0) 05/16/18 10:21 Urine RBC (Auto) 2.0 /HPF (0.0-6.0) 05/16/18 10:21 U Epithel Cells (Auto) < 1.0 /HPF (0-13.0) 05/16/18 10:21 Urine Mucus Few /HPF 05/16/18 10:21 CSF Appearance Clear 05/16/18 Unknown CSF Color Colorless 05/16/18 Unknown CSF WBC 1 /mm3 (1-10) 05/16/18 Unknown CSF RBC 1 /mm3 (0-0) 05/16/18 Unknown CSF Seg Neutrophils 3.0 % (0-6) 05/16/18 Unknown CSF Lymphocytes % 18.0 % (40-80) 05/16/18 Unknown CSF Reactive Lymphs Not Reportable 05/16/18 Unknown CSF Monocytes % 79.0 % (15-45) 05/16/18 Unknown CSF Eosinophils % Not Reportable 05/16/18 Unknown CSF Basophils Not Reportable 05/16/18 Unknown CSF Pathologist Review C 05/16/18 Unknown CSF Glucose 77 mg/dL 05/16/18 Unknown CSF Total Protein 34 mg/dL 05/16/18 Unknown CSF VDRL Nonreactive (Nonreactive) 05/16/18 Unknown Salicylates < 0.3 mg/dL (2.8-20.0) L 05/16/18 08:17 Urine Opiates Screen Presumptive negative 05/16/18 10:21 Urine Methadone Screen Presumptive negative 05/16/18 10:21 Acetaminophen < 5.0 ug/mL (10.0-30.0) L 05/16/18 08:17 Ur Barbiturates Screen Presumptive negative 05/16/18 10:21 Ur Phencyclidine Scrn Presumptive negative 05/16/18 10:21 Ur Amphetamines Screen Presumptive negative 05/16/18 10:21 U Benzodiazepines Scrn Presumptive positive 05/16/18 10:21 Urine Cocaine Screen Presumptive negative 05/16/18 10:21 U Marijuana (THC) Screen Presumptive negative 05/16/18 10:21 Drugs of Abuse Note Disclamer 05/16/18 10:21 Plasma/Serum Alcohol < 0.01 % (0-0.07) 05/16/18 08:17 Blood Type B POSITIVE 05/16/18 11:19 Antibody Screen Negative 05/16/18 11:19
--- NOTE | 2018-05-27 08:06 | Discharge Summary ---
Providers - Providers Date of Admission: 05/16/18 09:58 Date of discharge: 05/27/18 Attending physician: SANCHEZ CHACON 05/16/18 10:37 Consult to Physician [CONS] Routine Comment: Consulting Provider: ELISABET GOMEZ Physician Instructions: Reason For Exam: AMS 05/16/18 11:09 Consult to Mental Health [CONS] Routine Reason For Exam: ams ?psychosis Place consult to:: mental health Notified:: Kyra OROZCO Hospitalization Condition: Stable Exam - Constitutional Vitals: Temp Pulse Resp BP Pulse Ox 98.1 F 66 20 148/95 94 05/27/18 05:33 05/27/18 06:47 05/27/18 05:33 05/27/18 06:47 05/27/18 05:33 Plan Follow up with: [facility] [Other] - 3-5 Days
[2018-05-27] MEDS: TENORMIN PO SCH (09:52)
[2018-05-27] MEDS: SODIUM CHLORIDE FLUSH SYRINGE 10 ML IV SCH (09:53)
[2018-05-27 14:38] VITALS: BP 140/88
--- NOTE | 2018-05-27 15:28 | Progress Note ---
Subjective - Reason for Consult Consult date: 05/27/18 Reason for consult: Psychiatry Follow-up - Chief Complaint Chief complaint: "I want to get better" 32 y.o. AA male presenting to the ER for AMS. Psychiatry was consulted to see patient. Today the patient is indira during the assessment. He stated that he is aware that he will ne transferred to a mental health facility today. Per the record, the patient was aggressive overnight and a prn medication had to be given. He denies SI/HI's and AVH's. He denies any side effects of his medications. Mental Status Exam - Vital signs Last Vital Signs Temp 98.9 F 05/27/18 12:45 Pulse 67 05/27/18 14:37 Resp 18 05/27/18 12:45 BP 140/88 05/27/18 14:37 Pulse Ox 98 05/27/18 12:45 - Exam Narrative exam: MSE: Appearance: calm Behavior: regular eye contact Speech: regular rate and tone Mood: apprehensive, guarded Affect: congruent to mood Thought Process: disorganized Thought Content: denies SI/HI's and AVH's, paranoid, delusional Motor Activity: ambulatory Cognition: A/O x 3 Insight: poor Judgment: poor Assessment and Plan Impression: Unspecified Psychosis. R/O Alcohol Use DO. Insomnia. Today the patient is calm and cooperative during the assessment. The patient is not in restraints. DDx: Bipolar DO, R/O Schizophrenia Medical: Acute Metabolic Encephalopathy on admission Recommendation/Plan: Continue 1013 with placement to [facility] today.
--- NOTE | 2018-05-27 15:49 | Discharge Summary ---
Providers - Providers Date of Admission: 05/16/18 09:58 Date of discharge: 05/27/18 Attending physician: SANCHEZ CHACON 05/16/18 10:37 Consult to Physician [CONS] Routine Comment: Consulting Provider: ELISABET GOMEZ Physician Instructions: Reason For Exam: AMS 05/16/18 11:09 Consult to Mental Health [CONS] Routine Reason For Exam: ams ?psychosis Place consult to:: mental health Notified:: Kyra OROZCO Hospitalization Reason for admission: acute psychosis Condition: Fair Pertinent studies: CT head without contrast; acute abnormality noted MRI brain; no focal acute abnormality noted disconjugate gaze etiology uncertain mild ethmoid and maxillary sinus unremarkable exam no mass or lesion no intracranial hemorrhage no abnormal enhancement Chest x-ray; normal study Hospital course: A pleasant 15-year-old -[place] male patient with history of anxiety disorder following a hazing incident over 10 years ago during [employer] initiation was extensively evaluated at [facility] and later recommended cognitive behavioral therapy and patient has been functional for family constantly checking on him admitted through emergency room with bizarre behavior of 3 days duration including leaving work suddenly confusion., Police found the patient pacing around and the family noted bad reaction to antipsychotic medications in the past. patient was admitted through emergency room, lumbar puncture was negative for meningitis Admitted to ICU for close monitoring, Stabilized and transferred to medical floor, placed on 1013 status for his psychotic behavior Evaluated by psych, managed with multiple psych medications Noted to have hypertensive urgency, improved with multiple adjustments of multiple antihypertensives Patient also had rhabdomyolysis which was symptomatically managed with preserved renal function CK levels significantly improved today patient is comfortable no new complaints, Vital signs stable, patient is agitated aggressive and psychotic intermittently mainly during the nights, lack of sleep, agitation and anxiety Vital signs reviewed, Physical examination no new changes Medically cleared for discharge and transfer to inpatient psych facility[as recommended by psychiatrist] Patient is hemodynamically and clinically stable at the time of discharge Sometimes confused and agitated, Plan of care is reviewed with the patient, his parents at the bedside, nurse and the case management Discharge diagnosis; and management --Acute psychosis; possible bipolar/schizophrenia,Symptoms improved Management per psych, restraints for safety, 1013 --Rhabdomyolysis; CK levels trending down [phone] continue IV fluidsn Plenty oral liquids --Hypertensive urgency; resolved ,blood pressure well controlled Continue current antihypertensives and when necessary medications --Acute Metabolic Encephalopathy; on admission, labile mental status --Status post lumbar puncture. Negative for Meningitis . --History of hazing many years ago; --Hyperammonemia; present on admission, Resolved --Lactic acidosis; resolved --DVT prophylaxis; Lovenox --1013 status Disposition: [id number]/[id number] PSY HOSP/PSY UNIT Time spent for discharge: 33 min Core Measure Documentation - Palliative Care Palliative Care/ Comfort Measures: Not Applicable - Core Measures Any of the following diagnoses?: none Exam - Constitutional Vitals: Temp Pulse Resp BP Pulse Ox 98.9 F 67 18 140/88 98 05/27/18 12:45 05/27/18 14:37 05/27/18 12:45 05/27/18 14:37 05/27/18 12:45 General appearance: Present: no acute distress, well-nourished, other (confused at times) - EENT Eyes: Present: PERRL, EOM intact - Neck Neck: Present: supple, normal ROM - Respiratory Respiratory effort: normal Respiratory: negative: rales, rhonchi, wheezing - Cardiovascular Rhythm: regular Heart Sounds: Present: S1 & S2 - Extremities Extremities: no ischemia, No edema - Abdominal General gastrointestinal: Present: soft, non-tender, non-distended, normal bowel sounds - Integumentary Integumentary: Present: clear, warm - Musculoskeletal Musculoskeletal: strength equal bilaterally - Psychiatric Psychiatric: appropriate mood/affect, cooperative, agitated (at times), other ( psychotic at times) - Neurologic Neurologic: moves all extremities Plan Activity: advance as tolerated, other (1013 status, restraints for safety as needed) Diet: regular Special Instructions: physical therapy Additional Instructions: Patient is being transferred to inpatient psych facility for further evaluation and management. Parents at the bedside. Further management per psych team, medical team at inpatient psych facility Follow up with: [facility] [Other] - 3-5 Days
== END 2018-05-27 16:00 | DRG 557 ==
LOC: ED 06:56 → EEVIPCON 09:58 → CC1 09:58 → 4A 05-17 13:11 → 3A 05-20 23:55
PROVIDERS: ADMIT Internal Medicine; ATTEND Internal Medicine
PROC: 009U3ZX Drainage of Spinal Canal, Percutaneous Approach, Diagnostic (ICD-10-PCS; principal; 2018-05-16)
DX: M62.82 Rhabdomyolysis (principal); G93.41 Metabolic encephalopathy; E87.2 Acidosis; F23 Brief psychotic disorder; E72.20 Disorder of urea cycle metabolism, unspecified; R65.10 Systemic inflammatory response syndrome (SIRS) of non-infectious origin without acute organ dysfunction; R41.82 Altered mental status, unspecified; F41.9 Anxiety disorder, unspecified; I16.0 Hypertensive urgency; G47.00 Insomnia, unspecified; D72.829 Elevated white blood cell count, unspecified; F19.10 Other psychoactive substance abuse, uncomplicated; E66.9 Obesity, unspecified; F17.200 Nicotine dependence, unspecified, uncomplicated; Z68.32 Body mass index [BMI] 32.0-32.9, adult; Z72.89 Other problems related to lifestyle; Z71.6 Tobacco abuse counseling
CPT/HCPCS: 36415; 51701; 70450; 70553; 71045; 80048; 80053; 80074; 80307; 80320; 81001; 82140; 82550; 82553; 82947; 82962; 83735; 83880; 84100; 84160; 84443; 84484; 85007; 85025; 85027; 85610; 85730; 86403; 86592; 86850; 86900; 86901; 87086; 87116; 89051; 93005; 93010; 96361; 96365; 96367; 96372; 96375; 99292; A9577; G0480; J0360; J0696; J1200; J1630; J1650; J1940; J2060; J2543; J3230; J3370; J3486; J7030; J7040; Q0163